=== PATIENT | male | born 1930 | race Caucasian/White ===

== ENCOUNTER 2017-02-19 13:19 | Inpatient (IN) | payer MEDICARE, BC ==
[2017-02-21] MEDS ORDERED: Magnesium Hydroxide 400 MG/5 ML Susp 30 ML Cup PO PRN (10:51)
[2017-02-21] MEDS ORDERED: Acetaminophen 325 MG Tab PO PRN (10:51)
[2017-02-21] MEDS ORDERED: Ondansetron 4 MG Tab.DIS PO PRN (10:51)
[2017-02-21] MEDS ORDERED: guaiFENesin 100 MG/5 ML Soln 5 ML UD Cup PO PRN (10:51)
[2017-02-21] MEDS ORDERED: Acetaminophen/HYDROcodone 325-10 MG Tab PO PRN (10:51)
[2017-02-21] MEDS ORDERED: Polyethylene Glycol 3350 Powder 17 GM Packet PO PRN (10:51)
[2017-02-21] MEDS ORDERED: Betamethasone Dipropionate/Clotrimazole 0.05-1% Crm 15 GM Tube TOP PRN (11:29)
[2017-02-21] MEDS ORDERED: Naproxen 250 MG Tab PO PRN (11:29)
[2017-02-21] MEDS ORDERED: LORazepam 0.5 MG Tab PO PRN (11:29)
[2017-02-21] MEDS ORDERED: Non-Formulary Medication 1 Each (Halobetasol Propionate [Ultravate] 1 APPLIC) TOP PRN (11:29)
--- NOTE | 2017-02-21 15:17 | PCM.HP ---
H&P History of Present Illness - General Date of Service: 02/21/17 Admit Problem/Dx: Admission Diagnosis/Problem Admission Diagnosis/Problem Weakness Source of Information: Patient History Limitations: Reports: No Limitations - History of Present Illness Initial Comments - Free Text/Narative: 86-year-old male with past medical history significant for diabetes mellitus, hyperlipidemia, hypertension, bilateral total hip arthroplasty, who was admitted to [facility] on 02/11/17 with left foot necrotic ulcer. He reported symptoms have been going on for almost 2 months. He had been on multiple courses of antibiotics including clindamycin, doxycycline, and Bactrim, which he could not tolerate. Most recently, he was started on IV Rocephin and another oral antibiotic. He denies any fevers, chills, nausea, vomiting, or diarrhea. His ABIs done on February 11, 2017, showed critically diminished circulation in the left foot. MRI of the foot did not show any evidence of osteomyelitis. Ultrasound of the left leg was negative for DVT. He had angioplasty of left popliteal and left tibial-peroneal trunk and Proximal peroneal on 02/13. 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 His losartan was held. His left foot necrotic ulcer was treated during hospitalization was vancomycin and Zosyn, which have both been stopped and now he is only on daptomycin IV every 48 hours. He is being followed by Infectious Disease. Currently patient denies any symptoms. He was discharged from hospital admits to swing bed for generalized weakness as he may benefit from physical therapy and occupational therapy. His laboratory today shows BUN 27. Creatinine 1.6. Potassium 4.1. GFR 41. His creatinine started rising from normal on 02/18/17 and the highest was 1.8 on 02/19/17. His highest WBC was 15.2 on 02/11/17. And has been normal since 02/15/17. His CRP was 16.5 on 02/11/17. - Related Data Allergies/Adverse Reactions: Allergies Allergy/AdvReac Type Severity Reaction Status Date / Time amoxicillin Allergy Nausea and Verified 02/21/17 12:39 Vomiting cyclobenzaprine Allergy Cannot Verified 02/21/17 12:39 Remember Home Medications: Home Meds Acetaminophen [Tylenol Extra Strength] 1 - 2 tab PO TID PRN 02/18/17 [History] Aspirin [Halfprin] 1 tab PO DAILY 02/18/17 [History] Betamethasone Dipropionate [Diprosone 0.05% Crm] 1 applic TOP BID 02/18/17 [ History] Clotrimazole/Betamethasone Dip [Lotrisone Cream] 1 applic TOP BID PRN 02/18/17 [ History] Doxazosin Mesylate [Cardura] 1 tab PO DAILY 02/18/17 [History] Finasteride [Proscar] 1 tab PO DAILY 02/18/17 [History] Halobetasol Propionate [Ultravate] 1 applic TOP BID PRN 02/18/17 [History] Hydrochlorothiazide 1 tab PO DAILY 02/18/17 [History] Hydrocodone/Acetaminophen [Cecil 5-325] 0.5 tab PO BID 02/18/17 [History] LORazepam [Ativan] 0.5 mg PO BID PRN 02/18/17 [History] Lactobac Cmb #3/Fos/Pantethine [Probiotic & Acidophilus] 1 cap PO DAILY [History] Losartan [Cozaar] 100 mg PO DAILY 02/18/17 [History] Naproxen Sodium 220 mg PO BEDTIME PRN 02/18/17 [History] Silver Sulfadiazine [Silvadene 1% Cream 20 GM] 1 applic TOP DAILY 02/18/17 [ History] Triamcinolone Acetonide [Triamcinolone Acetonide 0.1% Crm] 1 applic TOP DAILY [History] metFORMIN [Glucophage] 1 tab PO BID 02/18/17 [History] oxyCODONE HCl/Acetaminophen [Percocet 5-325 mg Tablet] 0.5 tab PO Q4HR PRN 02/18 [History] Clopidogrel [Plavix] 75 mg PO DAILY 02/21/17 [History] DAPTOmycin [Daptomycin] 590 mg IV Q48H 02/21/17 [History] Lactobacillus Acidophilus/Fos [Acidophilus Probiotic Tablet] 1 each PO DAILY [History] Metoprolol Tartrate 75 mg PO BID 02/21/17 [History] oxyCODONE ER [OxyCONTIN] 20 mg PO Q8H 02/21/17 [History] Past Medical History HEENT History: Reports: Impaired Vision, Other (See Below) Other HEENT History: wears glasses Cardiovascular History: Reports: Hypertension Respiratory History: Reports: None Gastrointestinal History: Reports: Cholelithiasis, GERD Genitourinary History: Reports: BPH Musculoskeletal History: Reports: Arthritis Neurological History: Reports: None Psychiatric History: Reports: None Endocrine/Metabolic History: Reports: Diabetes, Type II Hematologic History: Reports: None Immunologic History: Reports: None Oncologic (Cancer) History: Reports: None Dermatologic History: Reports: Psoriasis - Infectious Disease History Infectious Disease History: Reports: None - Past Surgical History HEENT Surgical History: Reports: None Cardiovascular Surgical History: Reports: None Respiratory Surgical History: Reports: None GI Surgical History: Reports: Cholecystectomy Endocrine Surgical History: Reports: None Neurological Surgical History: Reports: Spinal Fusion Musculoskeletal Surgical History: Reports: Hip Replacement, Knee Replacement Oncologic Surgical History: Reports: None Dermatological Surgical History: Reports: None Social & Family History - Family History Family Medical History: Noncontributory - Tobacco Use Smoking Status *Q: Never Smoker Second Hand Smoke Exposure: No - Caffeine Use Caffeine Use: Reports: Coffee, Soda - Recreational Drug Use Recreational Drug Use: No H&P Review of Systems - Review of Systems: Review Of Systems: See Below General: Reports: No Symptoms HEENT: Reports: No Symptoms Pulmonary: Reports: No Symptoms Cardiovascular: Reports: No Symptoms Gastrointestinal: Reports: No Symptoms Genitourinary: Reports: No Symptoms Musculoskeletal: Reports: No Symptoms (Other than his surgery on the left foot) Skin: Reports: No Symptoms Psychiatric: Reports: No Symptoms Neurological: Reports: No Symptoms Hematologic/Lymphatic: Reports: No Symptoms Immunologic: Reports: No Symptoms Exam - Exam Exam: See Below - Vital Signs Vital Signs: Last Vital Signs Temp 36.0 C 02/21/17 12:49 Pulse 61 02/21/17 12:49 Resp 20 02/21/17 12:49 BP 131/49 L 02/21/17 12:49 Pulse Ox 97 02/21/17 12:49 Weight: 93.621 kg - Exam General: Alert, Oriented, Cooperative. No: Mild Distress, Moderate Distress, Severe Distress, Sedated, Lethargic, Obtunded HEENT: Conjunctiva Clear, EACs Clear, EOMI, Hearing Intact, Mucosa Moist & [place] , Nares Patent, Normal Nasal Septum, Posterior Pharynx Clear, Pupils Equal, Pupils Reactive, TMs Clear Neck: Supple, Trachea Midline Lungs: Clear to Auscultation, Normal Respiratory Effort Cardiovascular: Regular Rate, Regular Rhythm Abdomen: Normal Bowel Sounds, Soft, Pelvis Stable (Male) Exam: Deferred Rectal (Males) Exam: Deferred Back Exam: Normal Inspection, Full Range of Motion Extremities: Normal Pulses, Edema (Left leg edema which is chronic according to patient). No: Clubbing, Cyanosis, Calf Tenderness Skin: Warm, Dry, Intact Neurological: Cranial Nerves Intact, Reflexes Equal Bilateral Neuro Extensive - Mental Status: Alert, Oriented x3, Normal Mood/Affect, Normal Cognition, Memory Intact Psychiatric: Alert, Normal Affect, Normal Mood *Q Meaningful Use (ADM) - VTE *Q VTE Criteria *Q: - Stroke *Q Stroke Criteria *Q: - AMI *Q AMI Criteria *Q: Problem List Initiated/Reviewed/Updated: Yes Orders Last 24hrs: Active Orders 24 hr Category Date Time Status Patient Status [ADT] Routine ADT 02/21/17 10:51 Active Ambulate [RC] ASDIRECTED Care 02/21/17 10:51 Active Antiembolic Devices [RC] PER UNIT ROUTINE Care 02/21/17 11:00 Active Height and Weight [RC] PER UNIT ROUTINE Care 02/21/17 10:55 Active Intake and Output [RC] ASDIRECTED Care 02/21/17 10:51 Active May Shower [RC] ASDIRECTED Care 02/21/17 10:51 Active Oxygen Therapy [RC] PRN Care 02/21/17 10:51 Active Up ad Karyna [RC] ASDIRECTED Care 02/21/17 10:51 Active VTE/DVT Education [RC] PER UNIT ROUTINE Care 02/21/17 10:51 Active Vital Signs [RC] PER UNIT ROUTINE Care 02/21/17 10:51 Active OT Evaluation and Treatment [CONS] Routine Cons 02/21/17 10:51 Active PT Evaluation and Treatment [CONS] Routine Cons 02/21/17 10:51 Active Consistent Carbohydrate Diet [DIET] Diet 02/21/17 Breakfast Active Acetaminophen [Tylenol Extra Strength] Med 02/21/17 11:29 Active 500 mg PO Q4H PRN Acetaminophen [Tylenol] Med 02/21/17 10:51 Active 650 mg PO Q4H PRN Acetaminophen/HYDROcodone [Cecil 325-10 MG] Med 02/21/17 10:51 Active 0.5 tab PO Q4H PRN Acetaminophen/oxyCODONE [Percocet 325-5 MG] Med 02/21/17 11:29 Active 0.5 tab PO Q4HR PRN Aspirin [Halfprin] Med 02/22/17 09:00 Active 81 mg PO DAILY Betamethasone Dipropionate [Diprosone 0.05% Crm] Med 02/21/17 21:00 Active 0 gm TOP BID Betamethasone/Clotrimazole [Lotrisone] Med 02/21/17 11:29 Active 0 gm TOP BID PRN Clopidogrel [Plavix] Med 02/22/17 09:00 Active 75 mg PO DAILY DAPTOmycin [Cubicin] 590 mg Med 02/23/17 09:00 Active Sodium Chloride 0.9% [Normal Saline] 50 ml IV Q48H Doxazosin [Cardura] Med 02/22/17 21:00 Active 8 mg PO BEDTIME Finasteride [Proscar] Med 02/22/17 09:00 Active 5 mg PO DAILY Halobetasol Propionate [Ultravate] Med 02/21/17 11:29 Pending 1 applic TOP BID PRN Hydrochlorothiazide Med 02/22/17 09:00 Active 25 mg PO DAILY LORazepam [Ativan] Med 02/21/17 11:29 Active 0.5 mg PO BID PRN Lactobac Cmb #3/Fos/Pantethine [Probiotic & Acidophilus Med 02/22/17 09:00 Ordered ] 1 cap PO DAILY Lactobacillus Acidophilus/Fos [Acidophilus Probiotic Med 02/22/17 09:00 Ordered Tablet] 1 each PO DAILY Losartan [Cozaar] Med 02/22/17 09:00 Active 100 mg PO DAILY Magnesium Hydroxide [Milk of Magnesia] Med 02/21/17 10:51 Active 30 ml PO Q12H PRN Metoprolol Tartrate [Lopressor] Med 02/21/17 21:00 Active 75 mg PO BID Naproxen Sodium [Naproxen Sodium] Med 02/21/17 11:29 Ordered 220 mg PO BEDTIME PRN Ondansetron [Zofran ODT] Med 02/21/17 10:51 Active 4 mg PO Q6H PRN Polyethylene Glycol 3350 [MiraLAX] Med 02/21/17 10:51 Active 17 gm PO DAILY PRN Silver Sulfadiazine [Silvadene 1% Cream 50 GM] Med 02/22/17 09:00 Active 0 gm TOP DAILY Triamcinolone Acetonide [Triamcinolone Acetonide 0.1% Med 02/22/17 09:00 Ordered Crm] DOSE gm TOP DAILY guaiFENesin [Robitussin] Med 02/21/17 10:51 Active 100 mg PO Q4H PRN metFORMIN [Glucophage] Med 02/21/17 18:00 Active 500 mg PO BIDMEALS oxyCODONE ER [OxyCONTIN] Med 02/21/17 14:00 Active 20 mg PO Q8HR Antiembolic Hose [OM.PC] Routine Oth 02/21/17 10:51 Ordered Sequential Compression Device [OM.PC] Routine Oth 02/21/17 10:51 Ordered Resuscitation Status Routine Resus Stat 02/21/17 10:51 Ordered Medication Orders Acetaminophen (Tylenol) 650 mg PO Q4H PRN PRN Reason: Pain (Mild 1-3)/fever Acetaminophen (Tylenol Extra Strength) 500 mg PO Q4H PRN PRN Reason: Pain Hydrocodone Bitart/Acetaminophen (Cecil 325-10 Mg) 0.5 tab PO Q4H PRN PRN Reason: Pain (moderate 4-6) Aspirin (Halfprin) 81 mg PO DAILY PENDING SALE TO [facility] Betamethasone Dipropionate (Diprosone 0.05% Crm) 0 gm TOP BID DENISE Betamethasone/Clotrimazole (Lotrisone) 0 gm TOP BID PRN PRN Reason: Itching Clopidogrel Bisulfate (Plavix) 75 mg PO DAILY PENDING SALE TO [facility] Doxazosin Mesylate (Cardura) 8 mg PO BEDTIME DENISE Finasteride (Proscar) 5 mg PO DAILY DENISE Guaifenesin (Robitussin) 100 mg PO Q4H PRN PRN Reason: Cough Hydrochlorothiazide (Hydrochlorothiazide) 25 mg PO DAILY DENISE Daptomycin 590 mg/ Sodium (Chloride) 50 mls @ 100 mls/hr IV Q48H DENISE Lorazepam (Ativan) 0.5 mg PO BID PRN PRN Reason: Anxiety Losartan Potassium (Cozaar) 100 mg PO DAILY PENDING SALE TO [facility] Magnesium Hydroxide (Milk Of Magnesia) 30 ml PO Q12H PRN PRN Reason: Constipation Metformin HCl (Glucophage) 500 mg PO BIDMEALS DENISE Metoprolol Tartrate (Lopressor) 75 mg PO BID DENISE Non-Formulary Medication (Halobetasol Propionate [Ultravate]) 1 applic TOP BID PRN PRN Reason: Itching Non-Formulary Medication (Lactobac Cmb #3/Fos/Pantethine [Probiotic & Acidophilus]) 1 cap PO DAILY DENISE Non-Formulary Medication (Lactobacillus Acidophilus/Fos [Acidophilus Probiotic Tablet]) 1 each PO DAILY DENISE Non-Formulary Medication (Naproxen Sodium [Naproxen Sodium]) 220 mg PO BEDTIME PRN PRN Reason: Sleep Ondansetron HCl (Zofran Odt) 4 mg PO Q6H PRN PRN Reason: nausea, able to take PO Oxycodone HCl (Oxycontin) 20 mg PO Q8HR DENISE Oxycodone/Acetaminophen (Percocet 325-5 Mg) 0.5 tab PO Q4HR PRN PRN Reason: Pain Polyethylene Glycol (Miralax) 17 gm PO DAILY PRN PRN Reason: Constipation Silver Sulfadiazine (Silvadene 1% Cream 50 Gm) 0 gm TOP DAILY DENISE Triamcinolone Acetonide (Triamcinolone Acetonide 0.1% Crm) gm TOP DAILY DENISE Assessment/Plan Comment:: Generalized weakness from prolonged hospitalization and multiple comorbidities Admitted to swing bed Physical therapy and occupational therapy to evaluate and treat Left foot necrotic ulcer. Status post angioplasty L done today on 02/13, and left 1&2 toe/MTH amputation by Dr [id number] MRI did not show any osteomyelitis. He was on vancomycin and Zosyn, which have both been stopped and now he is only on daptomycin Infectious Disease is following the patient. Acute kidney injury. likely secondary to post contrast exposure vs vancomycin toxicity creatinine started rising on February. Now is trending down Highest creatinine was 1.8. Today is 1.6 He was taking losartan while the acute injury initiated. 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 His blood pressure was acceptable. Continue holding losartan [ was at 100 mg daily.] Continue metoprolol 75 mg BID Continue hydrochlorothiazide 25 mg daily. Edema of extremities. He has only trace pitting edema. Ultrasound was negative for DVT Continue hydrochlorothiazide 25 mg daily. Anemia of chronic illness. His hemoglobin level was 11.2. G/dl, Transfuse if Hgb <8 g/dl Diabetes type 2. well-controlled and he is on metformin. Diabetic diet Continue metformin Ambulation, KATE naqvi, Alexys for DVT prophylaxis He wants to be full code
[2017-02-21] MEDS: oxyCODONE ER 20 MG TAB.ER PO SCH ×2 (15:31→21:51)
[2017-02-21] MEDS: metFORMIN 500 MG Tab PO SCH (18:56)
[2017-02-21] MEDS: Betamethasone Dipropionate 0.05% Crm 15 GM Tube TOP SCH (21:54)
[2017-02-21] MEDS: Acetaminophen/oxyCODONE 325-5 MG Tab PO PRN (21:59)
[2017-02-21] MEDS: Metoprolol Tartrate 25 MG Tab PO SCH (22:45)
[2017-02-21] MEDS: Sodium Chloride 0.9% 10 ML Syringe FLUSH PRN (22:47)
[2017-02-22] MEDS: oxyCODONE ER 20 MG TAB.ER PO SCH ×3 (05:49→21:43)
[2017-02-22] MEDS ORDERED: Losartan 50 MG Tab PO SCH (09:00)
[2017-02-22] MEDS: Aspirin 81 MG Tab.EC PO SCH (09:14)
[2017-02-22] MEDS: Betamethasone Dipropionate 0.05% Crm 15 GM Tube TOP SCH ×2 (09:14→22:01)
[2017-02-22] MEDS: metFORMIN 500 MG Tab PO SCH ×2 (09:14→17:16)
[2017-02-22] MEDS: Metoprolol Tartrate 25 MG Tab PO SCH ×2 (09:15→21:42)
[2017-02-22] MEDS: Silver Sulfadiazine 1% Crm 50 GM Tube TOP SCH (09:15)
[2017-02-22] MEDS: Hydrochlorothiazide 25 MG Tab PO SCH (09:15)
[2017-02-22] MEDS: Clopidogrel 75 MG Tab PO SCH (09:15)
[2017-02-22] MEDS: Finasteride 5 MG Tab PO SCH (09:15)
[2017-02-22] MEDS: Triamcinolone Acetonide 0.1% Crm 15 GM Tube TOP SCH (09:15)
[2017-02-22] MEDS: Acetaminophen/oxyCODONE 325-5 MG Tab PO PRN ×2 (17:16→21:43)
[2017-02-22] MEDS: Doxazosin 2 MG Tab PO SCH (21:41)
[2017-02-22] MEDS: LACTOBACILLUS ACIDOPHILUS PO SCH (21:42)
[2017-02-22] MEDS: Sodium Chloride 0.9% 10 ML Syringe FLUSH PRN (21:48)
[2017-02-23] MEDS: oxyCODONE ER 20 MG TAB.ER PO SCH ×3 (06:04→21:59)
[2017-02-23] MEDS: Hydrochlorothiazide 25 MG Tab PO SCH (08:57)
[2017-02-23] MEDS: Aspirin 81 MG Tab.EC PO SCH (08:57)
[2017-02-23] MEDS: metFORMIN 500 MG Tab PO SCH ×2 (08:57→17:28)
[2017-02-23] MEDS: Finasteride 5 MG Tab PO SCH (08:57)
[2017-02-23] MEDS: Clopidogrel 75 MG Tab PO SCH (08:57)
[2017-02-23] MEDS: Metoprolol Tartrate 25 MG Tab PO SCH ×2 (08:57→21:59)
[2017-02-23] MEDS: Silver Sulfadiazine 1% Crm 50 GM Tube TOP SCH (08:58)
[2017-02-23] MEDS: Betamethasone Dipropionate 0.05% Crm 15 GM Tube TOP SCH ×2 (08:58→22:01)
[2017-02-23] MEDS: Triamcinolone Acetonide 0.1% Crm 15 GM Tube TOP SCH (08:59)
[2017-02-23] MEDS ORDERED: DAPTOmycin 500 MG Vial IV SCH (09:00)
[2017-02-23] MEDS: LACTOBACILLUS ACIDOPHILUS PO SCH (21:59)
[2017-02-23] MEDS: Doxazosin 2 MG Tab PO SCH (21:59)
[2017-02-23] MEDS: Sodium Chloride 0.9% 10 ML Syringe FLUSH PRN (22:01)
[2017-02-24] MEDS: oxyCODONE ER 20 MG TAB.ER PO SCH ×3 (05:43→21:47)
[2017-02-24] MEDS: Hydrochlorothiazide 25 MG Tab PO SCH (08:22)
[2017-02-24] MEDS: Metoprolol Tartrate 25 MG Tab PO SCH ×2 (08:22→21:15)
[2017-02-24] MEDS: Aspirin 81 MG Tab.EC PO SCH (08:22)
[2017-02-24] MEDS: metFORMIN 500 MG Tab PO SCH ×2 (08:22→17:51)
[2017-02-24] MEDS: Finasteride 5 MG Tab PO SCH (08:24)
[2017-02-24] MEDS: Clopidogrel 75 MG Tab PO SCH (08:24)
[2017-02-24] MEDS: Silver Sulfadiazine 1% Crm 50 GM Tube TOP SCH (08:27)
[2017-02-24] MEDS: Betamethasone Dipropionate 0.05% Crm 15 GM Tube TOP SCH (08:28)
[2017-02-24] MEDS: Triamcinolone Acetonide 0.1% Crm 15 GM Tube TOP SCH (08:28)
[2017-02-24] MEDS: Acetaminophen 500 MG Tab PO PRN (11:17)
--- NOTE | 2017-02-24 13:37 | PCM.SN ---
- Free Text/Narrative Note: Patient informed that he discuss with his family his CODE STATUS and he wants to be DNR/DNI. His thought process were normal and had normal judgment on exam
[2017-02-24] MEDS ORDERED: Triamcinolone Acetonide 0.1% Crm 15 GM Tube TOP PRN (13:44)
[2017-02-24] MEDS ORDERED: Betamethasone Dipropionate 0.05% Crm 15 GM Tube TOP PRN (13:44)
[2017-02-24] MEDS ORDERED: Silver Sulfadiazine 1% Crm 50 GM Tube TOP PRN (13:44)
[2017-02-24] MEDS: Doxazosin 2 MG Tab PO SCH (21:16)
[2017-02-24] MEDS: LACTOBACILLUS ACIDOPHILUS PO SCH (21:47)
[2017-02-24] MEDS: Sodium Chloride 0.9% 10 ML Syringe FLUSH PRN (21:48)
[2017-02-25] MEDS: oxyCODONE ER 20 MG TAB.ER PO SCH ×3 (05:29→21:17)
[2017-02-25] MEDS: Sodium Chloride 0.9% 10 ML Syringe FLUSH PRN ×2 (09:30→22:43)
[2017-02-25] MEDS: Metoprolol Tartrate 25 MG Tab PO SCH ×2 (09:37→21:14)
[2017-02-25] MEDS: Aspirin 81 MG Tab.EC PO SCH (09:38)
[2017-02-25] MEDS: Hydrochlorothiazide 25 MG Tab PO SCH (09:38)
[2017-02-25] MEDS: metFORMIN 500 MG Tab PO SCH ×2 (09:38→17:20)
[2017-02-25] MEDS: Finasteride 5 MG Tab PO SCH (09:38)
[2017-02-25] MEDS: Clopidogrel 75 MG Tab PO SCH (09:38)
[2017-02-25] MEDS: Acetaminophen/oxyCODONE 325-5 MG Tab PO PRN (10:28)
[2017-02-25] MEDS: Acetaminophen 500 MG Tab PO PRN (15:37)
[2017-02-25] MEDS: Doxazosin 2 MG Tab PO SCH (21:15)
[2017-02-25] MEDS: LACTOBACILLUS ACIDOPHILUS PO SCH (21:22)
[2017-02-26] MEDS: oxyCODONE ER 20 MG TAB.ER PO SCH ×2 (06:28→14:54)
[2017-02-26] MEDS: Menthol/Methyl Salicylate 85 GM Tube TOP PRN ×2 (09:00→14:55)
[2017-02-26] MEDS: Finasteride 5 MG Tab PO SCH (09:01)
[2017-02-26] MEDS: Clopidogrel 75 MG Tab PO SCH (09:01)
[2017-02-26] MEDS: Aspirin 81 MG Tab.EC PO SCH (09:02)
[2017-02-26] MEDS: Hydrochlorothiazide 25 MG Tab PO SCH (09:02)
[2017-02-26] MEDS: Metoprolol Tartrate 25 MG Tab PO SCH (09:02)
[2017-02-26] MEDS: metFORMIN 500 MG Tab PO SCH ×2 (09:03→17:29)
[2017-02-26 14:21] VITALS: BP 112/37
--- NOTE | 2017-02-26 17:51 | PCM.DCSUM1 ---
Discharge Summary - Hospital Course Free Text/Narrative:: 86-year-old male with past medical history significant for diabetes mellitus, hyperlipidemia, hypertension, bilateral total hip arthroplasty, who was admitted to [facility] on 02/11/17 with left foot necrotic ulcer. He reported symptoms have been going on for almost 2 months. He had been on multiple courses of antibiotics including clindamycin, doxycycline, and Bactrim, which he could not tolerate. Most recently, he was started on IV Rocephin and another oral antibiotic. He denies any fevers, chills, nausea, vomiting, or diarrhea. His ABIs done on February 11, 2017, showed critically diminished circulation in the left foot. MRI of the foot did not show any evidence of osteomyelitis. Ultrasound of the left leg was negative for DVT. He had angioplasty of left popliteal and left tibial-peroneal trunk and Proximal peroneal on 02/13. 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 His hospitalization was complicated with acute kidney injury for which he was seen by civil designer and thought to be probably combination of contrast and vancomycin toxicity causing either ischemic injury versus acute tubular necrosis. His losartan was held. His left foot necrotic ulcer was treated during hospitalization was vancomycin and Zosyn, which have both been stopped and now he is only on daptomycin IV every 48 hours. He is being followed by Infectious Disease.. His laboratory on swing bed admission day: BUN 27. Creatinine 1.6. Potassium 4.1. GFR 41. His creatinine started rising from normal on 02/18/17 and the highest was 1.8 on 02/19. His highest WBC was 15.2 on 02/11/17. And has been normal since 02/15/17. His CRP was 16.5 on 02/11/17. Yesterday at 4 PM patient had temp of 100.2 Fahrenheit. Today at the point where is Dr. Edouard from nephrology he had temp of 100.8. I suspect patient and examined him and he denies any new symptoms. He denies headache, nausea, vomiting, chest pain, cough, shortness breath, occasional pain, diarrhea, urinary symptoms, any other symptoms. However his nurses change the wound VAC yesterday and there was concern about exposed bone. His left foot is somewhat swelling. Wound VAC is in place. Blood work was done including 2 blood cultures. CRP more than 20. WBC more than 14,000 with neutrophils 79.4%. Sodium 133. Potassium 4.0. Creatinine 1.8. Blood glucose 1:30. UA is unremarkable. Discharge diagnoses: Elevated temperature We'll be transferred to [facility] in [place] for further work up Generalized weakness from prolonged hospitalization and multiple comorbidities He was having physical therapy and occupational therapy treatment Left foot necrotic ulcer. Status post angioplasty L done today on 02/13, and left 1&2 toe/MTH amputation by Dr Armas02/14 MRI did not show any osteomyelitis. He was on vancomycin and Zosyn, which have both been stopped and now he is only on daptomycin Infectious Disease is following the patient. Acute kidney injury. likely secondary to post contrast exposure vs vancomycin toxicity creatinine started rising on February. Highest creatinine was 1.8 during last hospitalization. Today is 1.8 He was taking losartan prior to previous admission to [facility] but was held and still on hold Encourage oral intake Process Improvement Specialist was following through telemedicine Hypertension. His blood pressure was acceptable. Continue holding losartan [ was at 100 mg daily.] Continue metoprolol 75 mg BID Continue hydrochlorothiazide 25 mg daily. Edema of extremities. He has only trace pitting edema. Ultrasound was negative for DVT Continue hydrochlorothiazide 25 mg daily. Anemia of chronic illness. His hemoglobin level dropped to 10.4.. G/dl, Transfuse if Hgb <8 g/dl Diabetes type 2. well-controlled and he is on metformin. Diabetic diet Continue metformin Ambulation, Alexys Thompson for DVT prophylaxis He wanted to be DNR/do not - Discharge Data Discharge Date: 02/26/17 Discharge Disposition: DC/Tfer to Acute Hospital 02 Condition: Fair - Patient Summary/Data Consults: Consultations 02/21/17 10:51 OT Evaluation and Treatment [CONS] Routine PT Evaluation and Treatment [CONS] Routine - Discharge Plan Home Medications: Home Meds Acetaminophen [Tylenol Extra Strength] 1 - 2 tab PO TID PRN 02/18/17 [History] Aspirin [Halfprin] 1 tab PO DAILY 02/18/17 [History] Betamethasone Dipropionate [Diprosone 0.05% Crm] 1 applic TOP BID 02/18/17 [ History] Clotrimazole/Betamethasone Dip [Lotrisone Cream] 1 applic TOP BID PRN 02/18/17 [ History] Doxazosin Mesylate [Cardura] 1 tab PO DAILY 02/18/17 [History] Finasteride [Proscar] 1 tab PO DAILY 02/18/17 [History] Halobetasol Propionate [Ultravate] 1 applic TOP BID PRN 02/18/17 [History] Hydrochlorothiazide 1 tab PO DAILY 02/18/17 [History] Hydrocodone/Acetaminophen [[place] 5-325] 0.5 tab PO BID 02/18/17 [History] LORazepam [Ativan] 0.5 mg PO BID PRN 02/18/17 [History] Lactobac Cmb #3/Fos/Pantethine [Probiotic & Acidophilus] 1 cap PO DAILY [History] Losartan [Cozaar] 100 mg PO DAILY 02/18/17 [History] Naproxen Sodium 220 mg PO BEDTIME PRN 02/18/17 [History] Silver Sulfadiazine [Silvadene 1% Cream 20 GM] 1 applic TOP DAILY 02/18/17 [ History] Triamcinolone Acetonide [Triamcinolone Acetonide 0.1% Crm] 1 applic TOP DAILY [History] metFORMIN [Glucophage] 1 tab PO BID 02/18/17 [History] oxyCODONE HCl/Acetaminophen [Percocet 5-325 mg Tablet] 0.5 tab PO Q4HR PRN 02/18 [History] Clopidogrel [Plavix] 75 mg PO DAILY 02/21/17 [History] DAPTOmycin [Daptomycin] 590 mg IV Q48H 02/21/17 [History] Lactobacillus Acidophilus/Fos [Acidophilus Probiotic Tablet] 1 each PO DAILY [History] Metoprolol Tartrate 75 mg PO BID 02/21/17 [History] oxyCODONE ER [OxyCONTIN] 20 mg PO Q8H 02/21/17 [History] - Discharge Summary/Plan Comment DC Time >30 min.: Yes (35 minutes were spent discharging this patient) - General Info Date of Service: 02/26/17 Admission Dx/Problem (Free Text: Admission Diagnosis/Problem Admission Diagnosis/Problem Weakness - Review of Systems General: Reports: No Symptoms HEENT: Reports: no symptoms Pulmonary: Reports: no symptoms Cardiovascular: Reports: No Symptoms Gastrointestinal: Reports: No symptoms Genitourinary: Reports: no symptoms Musculoskeletal: Reports: no symptoms Skin: Reports: no symptoms Neurological: Reports: No Symptoms Psychiatric: Reports: no symptoms (Other than his left foot issue) - Patient Data Vitals - Most Recent: Last Vital Signs Temp 37.7 C 02/26/17 14:21 Pulse 72 02/26/17 14:21 Resp 20 02/26/17 14:21 BP 112/37 L 02/26/17 14:21 Pulse Ox 93 L 02/26/17 14:21 Weight - Most Recent: 93.621 kg I&O - Last 24 hours: Intake & Output 02/26/17 02/26/17 02/26/17 06:59 14:59 22:59 Intake Total 300 470 Balance 300 470 Lab Results - Last 24 hrs: Laboratory Results - last 24 hr 02/26/17 02/26/17 02/26/17 Range/Units 07:49 14:20 14:20 WBC 14.6 H (5.0-10.0) 10^3/uL RBC 3.39 L (4.6-6.2) 10^6/uL Hgb 10.4 L (14.0-18.0) g/dL Hct 31.2 L (40.0-54.0) % MCV 92.0 (80-100) fL MCH 30.7 (27.0-34.0) pg MCHC 33.3 (33.0-35.0) g/dL Plt Count 402 (150-450) 10^3/uL Neut % (Auto) 79.4 H (42.2-75.2) % Lymph % (Auto) 8.3 L (20.5-50.1) % [place] % (Auto) 12.0 H (2-8) % Eos % (Auto) 0.0 L (1.0-3.0) % Baso % (Auto) 0.3 (0.0-1.0) % Sodium 133 L (135-145) mmol/L Potassium 4.0 (3.6-5.0) mmol/L Chloride 96 L (101-111) mmol/L Carbon Dioxide 23.0 (21.0-31.0) mmol/L Anion Gap 18.0 BUN 31 H (7-18) mg/dL Creatinine 1.8 H (0.6-1.3) mg/dL Est Cr Clr Drug Dosing 26.10 mL/min Estimated GFR (MDRD) 36 Glucose 130 H (74-105) mg/dL POC Glucose 102 (83-110) mg/dl Calcium 9.0 (8.4-10.2) mg/dl C-Reactive Protein (0.0-1.3) mg/dL Urine Color (YELLOW) Urine Appearance (CLEAR) Urine pH (5.0-9.0) Ur Specific [place] (1.005-1.030) Urine Protein (NEGATIVE) Urine Glucose (UA) (NEGATIVE) Urine Ketones (NEGATIVE) Urine Occult Blood (NEGATIVE) Urine Nitrite (NEGATIVE) Urine Bilirubin (NEGATIVE) Urine Urobilinogen (0.2-1.0) mg/dL Ur Leukocyte Esterase (NEGATIVE) Urine RBC /HPF Urine WBC (0-5/HPF) /HPF Amorphous Sediment (0/HPF) /HPF Urine Bacteria (0-FEW/HPF) /HPF 02/26/17 02/26/17 Range/Units 14:20 16:45 WBC (5.0-10.0) 10^3/uL RBC (4.6-6.2) 10^6/uL Hgb (14.0-18.0) g/dL Hct (40.0-54.0) % MCV (80-100) fL MCH (27.0-34.0) pg MCHC (33.0-35.0) g/dL Plt Count (150-450) 10^3/uL Neut % (Auto) (42.2-75.2) % Lymph % (Auto) (20.5-50.1) % [place] % (Auto) (2-8) % Eos % (Auto) (1.0-3.0) % Baso % (Auto) (0.0-1.0) % Sodium (135-145) mmol/L Potassium (3.6-5.0) mmol/L Chloride (101-111) mmol/L Carbon Dioxide (21.0-31.0) mmol/L Anion Gap BUN (7-18) mg/dL Creatinine (0.6-1.3) mg/dL Est Cr Clr Drug Dosing mL/min Estimated GFR (MDRD) Glucose (74-105) mg/dL POC Glucose (83-110) mg/dl Calcium (8.4-10.2) mg/dl C-Reactive Protein > 20.0 H (0.0-1.3) mg/dL Urine Color Yellow (YELLOW) Urine Appearance Clear (CLEAR) Urine pH 5.5 (5.0-9.0) Ur Specific [place] 1.015 (1.005-1.030) Urine Protein 30 H (NEGATIVE) Urine Glucose (UA) Negative (NEGATIVE) Urine Ketones Negative (NEGATIVE) Urine Occult Blood Small H (NEGATIVE) Urine Nitrite Negative (NEGATIVE) Urine Bilirubin Negative (NEGATIVE) Urine Urobilinogen 0.2 (0.2-1.0) mg/dL Ur Leukocyte Esterase Negative (NEGATIVE) Urine RBC 0-5 /HPF Urine WBC 0-5 (0-5/HPF) /HPF Amorphous Sediment Rare (0/HPF) /HPF Urine Bacteria Rare (0-FEW/HPF) /HPF [facility] Results - Last 24 hrs: Microbiology 02/26/17 14:25 Anaerobic Blood Culture - Final Blood - Venous - Lab Draw Med Orders - Current: Current Medications Acetaminophen (Tylenol) 650 mg PO Q4H PRN PRN Reason: Pain (Mild 1-3)/fever Last Admin: 02/22/17 17:58 Dose: 650 mg Acetaminophen (Tylenol Extra Strength) 500 mg PO Q4H PRN PRN Reason: Pain Last Admin: 02/25/17 15:37 Dose: 500 mg Aspirin (Halfprin) 81 mg PO DAILY [facility] Last Admin: 02/26/17 09:02 Dose: 81 mg Betamethasone Dipropionate (Diprosone 0.05% Crm) 0.1 gm TOP BID PRN PRN Reason: Psoriasis flare up Betamethasone/Clotrimazole (Lotrisone) 0 gm TOP BID PRN PRN Reason: Itching Clopidogrel Bisulfate (Plavix) 75 mg PO DAILY [facility] Last Admin: 02/26/17 09:01 Dose: 75 mg Doxazosin Mesylate (Cardura) 8 mg PO BEDTIME [facility] Last Admin: 02/25/17 21:15 Dose: 8 mg Finasteride (Proscar) 5 mg PO DAILY [facility] Last Admin: 02/26/17 09:01 Dose: 5 mg Guaifenesin (Robitussin) 100 mg PO Q4H PRN PRN Reason: Cough Hydrochlorothiazide (Hydrochlorothiazide) 25 mg PO DAILY [facility] Last Admin: 02/26/17 09:02 Dose: 25 mg Daptomycin 590 mg/ Sodium (Chloride) 50 mls @ 100 mls/hr IV Q48H [facility] Last Admin: 02/25/17 09:31 Dose: 100 mls/hr Lorazepam (Ativan) 0.5 mg PO BID PRN PRN Reason: Anxiety Magnesium Hydroxide (Milk Of Magnesia) 30 ml PO Q12H PRN PRN Reason: Constipation Metformin HCl (Glucophage) 500 mg PO BIDMEALS [facility] Last Admin: 02/26/17 17:29 Dose: 500 mg Methyl Salicylate (Icy Hot Cream) 0.1 gm TOP TID PRN PRN Reason: muscle pain Last Admin: 02/26/17 14:55 Dose: 1 applic Metoprolol Tartrate (Lopressor) 75 mg PO BID [facility] Last Admin: 02/26/17 09:02 Dose: 75 mg Naproxen (Naprosyn) 250 mg PO BEDTIME PRN PRN Reason: Sleep Ondansetron HCl (Zofran Odt) 4 mg PO Q6H PRN PRN Reason: nausea, able to take PO Oxycodone HCl (Oxycontin) 20 mg PO Q8HR [facility] Last Admin: 02/26/17 14:54 Dose: 20 mg Oxycodone/Acetaminophen (Percocet 325-5 Mg) 0.5 tab PO Q4HR PRN PRN Reason: Pain Last Admin: 02/25/17 10:28 Dose: 0.5 tab Lactobacillus Acidophilus(Florajen 3)Pt's Own Med * 1 each PO DAILY@2200 [facility] Last Admin: 02/25/17 21:22 Dose: 1 each Polyethylene Glycol (Miralax) 17 gm PO DAILY PRN PRN Reason: Constipation Silver Sulfadiazine (Silvadene 1% Cream 50 Gm) 0.1 gm TOP DAILY PRN PRN Reason: Psoriasis flareup Sodium Chloride (Saline Flush) 10 ml FLUSH ASDIRECTED PRN PRN Reason: Keep Vein Open Last Admin: 02/25/17 22:43 Dose: 10 ml Triamcinolone Acetonide (Triamcinolone Acetonide 0.1% Crm) 0.1 gm TOP DAILY PRN PRN Reason: Psoriasis flare up Discontinued Medications Hydrocodone Bitart/Acetaminophen ([place] 325-10 Mg) 0.5 tab PO Q4H PRN PRN Reason: Pain (moderate 4-6) Betamethasone Dipropionate (Diprosone 0.05% Crm) 0 gm TOP BID [facility] Last Admin: 02/24/17 08:28 Dose: Not Given Losartan Potassium (Cozaar) 100 mg PO DAILY [facility] Non-Formulary Medication (Halobetasol Propionate [Ultravate]) 1 applic TOP BID PRN PRN Reason: Itching Non-Formulary Medication (Lactobac Cmb #3/Fos/Pantethine [Probiotic & Acidophilus]) 1 cap PO DAILY [facility] Last Admin: 02/22/17 13:40 Dose: Not Given Silver Sulfadiazine (Silvadene 1% Cream 50 Gm) 0 gm TOP DAILY [facility] Last Admin: 02/24/17 08:27 Dose: Not Given Triamcinolone Acetonide (Triamcinolone Acetonide 0.1% Crm) 0 gm TOP DAILY [facility] Last Admin: 02/24/17 08:28 Dose: Not Given - Exam General: Reports: alert, oriented, cooperative, no acute distress. Denies: mild distress, moderate distress, severe distress, sedated, lethargic, obtunded HEENT: Reports: Pupils equal, Pupils reactive, EOMI, Mucous membr. moist/pink Neck: Reports: supple, trachea midline, no JVD Lungs: Reports: Clear to auscultation, Normal respiratory effort Cardiovascular: Reports: Regular Rate, Regular Rhythm GI/Abdominal Exam: Normal Bowel Sounds, Soft, Non-Tender, No Organomegaly, No Distention, No Abnormal Bruit, No Mass (Male) Exam: Deferred Rectal (Males) Exam: Deferred Back Exam: Reports: Normal Inspection, Full Range of Motion Extremities: Normal Capillary Refill, Other (Left foot has a wound VAC in place) Skin: Reports: warm, dry Neurological: Reports: no new focal deficit, normal speech, normal tone Psy/Mental Status: Reports: alert, normal affect, normal mood *Q Meaningful Use (DIS) - VTE *Q VTE Criteria *Q: - Stroke *Q Stroke Criteria *Q: - AMI *Q AMI Criteria *Q:
== END 2017-02-26 17:45 | DRG 948 ==
LOC: DL.MS 02-21 12:17
PROVIDERS: ADMIT Family Medicine; ATTEND Family Medicine
DX: R53.1 Weakness (principal); N17.9 Acute kidney failure, unspecified; L97.529 Non-pressure chronic ulcer of other part of left foot with unspecified severity; R50.9 Fever, unspecified; I10 Essential (primary) hypertension; D63.8 Anemia in other chronic diseases classified elsewhere; R60.9 Edema, unspecified; Z66 Do not resuscitate; E11.9 Type 2 diabetes mellitus without complications; Z79.84 Long term (current) use of oral hypoglycemic drugs; Z98.62 Peripheral vascular angioplasty status; K21.9 Gastro-esophageal reflux disease without esophagitis; N40.0 Benign prostatic hyperplasia without lower urinary tract symptoms; M19.90 Unspecified osteoarthritis, unspecified site; L40.9 Psoriasis, unspecified; Z96.643 Presence of artificial hip joint, bilateral; Z96.659 Presence of unspecified artificial knee joint; E78.5 Hyperlipidemia, unspecified; Z88.1 Allergy status to other antibiotic agents; Z88.8 Allergy status to other drugs, medicaments and biological substances; Z79.82 Long term (current) use of aspirin; Z79.899 Other long term (current) drug therapy
CPT/HCPCS: 36415; 80048; 81001; 82962; 85025; 86140; 87040; 97110-GO; 97110-GP; 97161-GP; 97165-GO; 97530-GO; 97535-GO; A9270-GY; J0878; J7050

== ENCOUNTER 2017-03-05 15:23 | Inpatient (IN) | payer MEDICARE, BC ==
[2017-03-05] MEDS ORDERED: Betamethasone Dipropionate/Clotrimazole 0.05-1% Crm 15 GM Tube TOP PRN (16:45)
[2017-03-05] MEDS ORDERED: LORazepam 0.5 MG Tab PO PRN (16:45)
[2017-03-05] MEDS ORDERED: Naproxen 250 MG Tab PO PRN (16:45)
[2017-03-05] MEDS ORDERED: Menthol/Methyl Salicylate 85 GM Tube TOP PRN (16:45)
[2017-03-05] MEDS ORDERED: HYDROCORTISONE VALERATE TOP PRN (16:45)
--- NOTE | 2017-03-05 17:01 | PCM.HP ---
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 Jose Crenshaw is an 86-year-old man with medical history of hypertension diabetes mellitus chronic kidney disease dyslipidemia and peripheral atrophy disease. The patient developed necrotic left foot and underwent amputation of toes of the left foot but subsequently the wound refused to heal has underwent left below knee amputation. Today the patient also has no new complaints. He is weak since the time of surgery but that has gradually improved. Denies nausea or vomiting. He developed urinary retention in the postoperative period. This was felt to be due to narcotic analgesics. Urinalysis also suggested possible urinary tract infection. The patient was started on ciprofloxacin Left Leg Pain Score (Numeric/FACES): 5 - Related Data Allergies/Adverse Reactions: Allergies Allergy/AdvReac Type Severity Reaction Status Date / Time amoxicillin Allergy Nausea and Verified 03/05/17 16:31 Vomiting cyclobenzaprine Allergy Cannot Verified 03/05/17 16:31 Remember Home Medications: Home Meds Acetaminophen [Tylenol Extra Strength] 1 - 2 tab PO TID PRN 02/18/17 [History] Aspirin [Halfprin] 1 tab PO DAILY 02/18/17 [History] Betamethasone Dipropionate [Diprosone 0.05% Crm] 1 applic TOP BID 02/18/17 [ History] Clotrimazole/Betamethasone Dip [Lotrisone Cream] 1 applic TOP BID PRN 02/18/17 [ History] Doxazosin Mesylate [Cardura] 1 tab PO DAILY 02/18/17 [History] Finasteride [Proscar] 1 tab PO DAILY 02/18/17 [History] Halobetasol Propionate [Ultravate] 1 applic TOP DAILY PRN 02/18/17 [History] Hydrochlorothiazide 1 tab PO DAILY 02/18/17 [History] Hydrocodone/Acetaminophen [Plano 5-325] 0.5 tab PO BID 02/18/17 [History] LORazepam [Ativan] 0.5 mg PO BID PRN 02/18/17 [History] Losartan [Cozaar] 100 mg PO DAILY 02/18/17 [History] Naproxen Sodium 220 mg PO BEDTIME PRN 02/18/17 [History] Silver Sulfadiazine [Silvadene 1% Cream 20 GM] 1 applic TOP DAILY 02/18/17 [ History] metFORMIN [Glucophage] 1 tab PO BID 02/18/17 [History] oxyCODONE HCl/Acetaminophen [Percocet 5-325 mg Tablet] 0.5 tab PO Q4HR PRN 02/18 [History] Clopidogrel [Plavix] 75 mg PO DAILY 02/21/17 [History] Lactobacillus Acidophilus/Fos [Acidophilus Probiotic Tablet] 1 each PO DAILY [History] Metoprolol Tartrate 50 mg PO BID 02/21/17 [History] oxyCODONE ER [OxyCONTIN] 20 mg PO Q8H 02/21/17 [History] Hydrocortisone Valerate [Hydrocortisone Valerate 0.2% Crm] 1 applic TOP BID PRN 03/04/17 [History] Ciprofloxacin [Ciprofloxacin HCl] 500 mg PO BID 03/05/17 [History] Magnesium Hydroxide [Milk of Magnesia] 30 ml PO BID PRN 03/05/17 [History] Methyl Salicylate/Menth/Camph [Pain Relieving Rub Cream] 57 gm TP TID PRN [History] Polyethylene Glycol 3350 [MiraLAX] 17 gm PO DAILY PRN 03/05/17 [History] Tamsulosin HCl [Flomax] 0.4 mg PO BEDTIME 03/05/17 [History] Past Medical History HEENT History: Reports: Impaired Vision, Other (See Below) Other HEENT History: wears glasses Cardiovascular History: Reports: Hypertension Respiratory History: Reports: None Gastrointestinal History: Reports: Cholelithiasis, GERD Genitourinary History: Reports: BPH Musculoskeletal History: Reports: Arthritis Neurological History: Reports: None Psychiatric History: Reports: None Endocrine/Metabolic History: Reports: Diabetes, Type II Hematologic History: Reports: None Immunologic History: Reports: None Oncologic (Cancer) History: Reports: None Dermatologic History: Reports: Psoriasis - Infectious Disease History Infectious Disease History: Reports: None - Past Surgical History HEENT Surgical History: Reports: None Cardiovascular Surgical History: Reports: None Respiratory Surgical History: Reports: None GI Surgical History: Reports: Cholecystectomy Endocrine Surgical History: Reports: None Neurological Surgical History: Reports: Spinal Fusion Musculoskeletal Surgical History: Reports: Hip Replacement, Knee Replacement Oncologic Surgical History: Reports: None Dermatological Surgical History: Reports: None Social & Family History - Family History Family Medical History: Noncontributory - Tobacco Use Smoking Status *Q: Never Smoker Second Hand Smoke Exposure: No - Caffeine Use Caffeine Use: Reports: Coffee, Soda - Recreational Drug Use Recreational Drug Use: No H&P Review of Systems - Review of Systems: Review Of Systems: See Below General: Reports: Weakness HEENT: Reports: No Symptoms Pulmonary: Reports: No Symptoms Cardiovascular: Reports: No Symptoms Gastrointestinal: Reports: No Symptoms Musculoskeletal: Reports: No Symptoms Skin: Reports: No Symptoms Exam - Exam Exam: See Below - Vital Signs Vital Signs: Last Vital Signs Temp 36.6 C 03/05/17 15:38 Pulse 72 03/05/17 15:38 Resp 20 03/05/17 15:38 BP 132/49 L 03/05/17 15:38 Pulse Ox 98 03/05/17 16:38 Weight: 82.645 kg - Exam General: Alert, Oriented Lungs: Clear to Auscultation Cardiovascular: Regular Rate, Regular Rhythm GI/Abdominal Exam: Normal Bowel Sounds, Soft Back Exam: Normal Inspection, Full Range of Motion Extremities: Normal Capillary Refill, Other Skin: Other *Q Meaningful Use (ADM) - VTE *Q VTE Criteria *Q: - VTE Risk Assess *Q Each Risk Factor Represents 1 Point: None Total Score 1 Point Risk Factors: 0 Each Risk Factor Represents 3 Points: None Total Score 3 Point Risk Factors: 0 - Stroke *Q Stroke Criteria *Q: - AMI *Q AMI Criteria *Q: Problem List Initiated/Reviewed/Updated: Yes Orders Last 24hrs: Active Orders 24 hr Category Date Time Status Patient Status [ADT] Routine ADT 03/05/17 16:38 Ordered Blood Glucose Check, Bedside [RC] QIDACANDBED Care 03/05/17 16:38 Ordered Diabetes Education [RC] Click To Edit Care 03/05/17 16:44 Ordered Dietary Supplements [RC] QIDACANDBED Care 03/05/17 16:38 Ordered Height and Weight [RC] WEEKLY Care 03/05/17 16:41 Ordered Intake and Output [RC] QSHIFT Care 03/05/17 16:41 Ordered Oxygen Therapy [RC] PRN Care 03/05/17 16:38 Ordered Up ad Karyna [RC] ASDIRECTED Care 03/05/17 16:38 Ordered VTE/DVT Education [RC] PER UNIT ROUTINE Care 03/05/17 16:38 Ordered Vital Signs [RC] PER UNIT ROUTINE Care 03/05/17 16:38 Ordered OT Evaluation and Treatment [CONS] Routine Cons 03/05/17 16:38 Ordered PT Evaluation and Treatment [CONS] Routine Cons 03/05/17 16:38 Ordered Consistent Carbohydrate Diet [DIET] Diet 03/05/17 Dinner Ordered Acetaminophen [Tylenol] Med 03/05/17 16:38 Ordered 650 mg PO Q4H PRN Acetaminophen/oxyCODONE [Percocet 325-5 MG] Med 03/05/17 16:45 Ordered 0.5 tab PO Q4HR PRN Aspirin [Halfprin] Med 03/06/17 09:00 Ordered 1 tab PO DAILY Betamethasone Dipropionate [Diprosone 0.05% Crm] Med 03/05/17 21:00 Ordered 1 applic TOP BID Betamethasone/Clotrimazole [Lotrisone] Med 03/05/17 16:45 Ordered 1 applic TOP BID PRN Ciprofloxacin [Ciprofloxacin HCl] Med 03/05/17 21:00 Ordered 500 mg PO BID Clopidogrel [Plavix] Med 03/06/17 09:00 Ordered 75 mg PO DAILY Doxazosin Mesylate [Cardura] Med 03/06/17 09:00 Ordered 1 tab PO DAILY Finasteride [Proscar] Med 03/06/17 09:00 Ordered 1 tab PO DAILY Heparin Sodium Med 03/05/17 22:00 Ordered 5,000 units SUBCUT Q8HR Hydrochlorothiazide Med 03/06/17 09:00 Ordered 1 tab PO DAILY Hydrocortisone Valerate [Hydrocortisone Valerate 0.2% Med 03/05/17 16:45 Stop Req Crm] 1 applic TOP BID PRN LORazepam [Ativan] Med 03/05/17 16:45 Ordered 0.5 mg PO BID PRN Lactobacillus Acidophilus/Fos [Acidophilus Probiotic Med 03/06/17 09:00 Ordered Tablet] 1 each PO DAILY Losartan [Cozaar] Med 03/06/17 09:00 Ordered 100 mg PO DAILY Magnesium Hydroxide [Milk of Magnesia] Med 03/05/17 16:45 Ordered 30 ml PO BID PRN Methyl Salicylate/Menth/Camph [Pain Relieving Rub Cream Med 03/05/17 16:45 Ordered ] 57 gm TP TID PRN Metoprolol Tartrate [Metoprolol Tartrate] Med 03/05/17 21:00 Ordered 50 mg PO BID Naproxen Sodium [Naproxen Sodium] Med 03/05/17 16:45 Ordered 220 mg PO BEDTIME PRN Ondansetron [Zofran ODT] Med 03/05/17 16:38 Ordered 4 mg PO Q6H PRN Polyethylene Glycol 3350 [MiraLAX] Med 03/05/17 16:45 Ordered 17 gm PO DAILY PRN Silver Sulfadiazine [Silvadene 1% Cream 400 GM] Med 03/06/17 09:00 Ordered 1 applic TOP DAILY Tamsulosin [Flomax] Med 03/05/17 21:00 Ordered 0.4 mg PO BEDTIME metFORMIN [Glucophage] Med 03/05/17 21:00 Ordered 1 tab PO BID oxyCODONE ER [OxyCONTIN] Med 03/05/17 16:45 Ordered 20 mg PO Q8H Glucose Management Sub Q Reflex [OM.PC] Click To Edit Oth 03/05/17 16:38 Ordered Resuscitation Status Routine Resus Stat 03/05/17 16:38 Ordered Medication Orders Acetaminophen (Tylenol) 650 mg PO Q4H PRN PRN Reason: Pain (Mild 1-3)/fever Aspirin (Halfprin) mg PO DAILY [facility] Betamethasone Dipropionate (Diprosone 0.05% Crm) gm TOP BID [facility] Betamethasone/Clotrimazole (Lotrisone) gm TOP BID PRN PRN Reason: Itching Ciprofloxacin (Ciprofloxacin Hcl) 500 mg PO BID [facility] Clopidogrel Bisulfate (Plavix) 75 mg PO DAILY [facility] Finasteride (Proscar) mg PO DAILY [facility] Heparin Sodium (Porcine) (Heparin Sodium) 5,000 units SUBCUT Q8HR [facility] Hydrochlorothiazide (Hydrochlorothiazide) mg PO DAILY [facility] Lorazepam (Ativan) 0.5 mg PO BID PRN PRN Reason: Anxiety Magnesium Hydroxide (Milk Of Magnesia) 30 ml PO BID PRN PRN Reason: Constipation Metformin HCl (Glucophage) mg PO BID [facility] Non-Formulary Medication (Doxazosin Mesylate [Cardura]) 1 tab PO DAILY [facility] Non-Formulary Medication (Hydrocortisone Valerate [Hydrocortisone Valerate 0.2% Crm]) 1 applic TOP BID PRN PRN Reason: Itching Non-Formulary Medication (Lactobacillus Acidophilus/Fos [Acidophilus Probiotic Tablet]) 1 each PO DAILY [facility] Non-Formulary Medication (Losartan [Cozaar]) 100 mg PO DAILY [facility] Non-Formulary Medication (Methyl Salicylate/Menth/Camph [Pain Relieving Rub Cream]) 57 gm TP TID PRN PRN Reason: Pain Non-Formulary Medication (Metoprolol Tartrate [Metoprolol Tartrate]) 50 mg PO BID [facility] Non-Formulary Medication (Naproxen Sodium [Naproxen Sodium]) 220 mg PO BEDTIME PRN PRN Reason: Sleep Ondansetron HCl (Zofran Odt) 4 mg PO Q6H PRN PRN Reason: nausea, able to take PO Oxycodone HCl (Oxycontin) 20 mg PO Q8H [facility] Oxycodone/Acetaminophen (Percocet 325-5 Mg) 0.5 tab PO Q4HR PRN PRN Reason: Pain Polyethylene Glycol (Miralax) 17 gm PO DAILY PRN PRN Reason: Constipation Silver Sulfadiazine (Silvadene 1% Cream 400 Gm) gm TOP DAILY [facility] Tamsulosin HCl (Flomax) 0.4 mg PO BEDTIME [facility] Assessment/Plan Comment:: Assessment and plan: #. Ischemic left foot. The patient initially had amputation of the left toes but due to poor wound healing he underwent left below knee amputation #. Diabetes mellitus2 Anatoly Whitman hypoglycemic agent metformin #. Hypertension Blood pressure is within acceptable limits #. Chronic kidney disease stage III Baseline creatinine has been about 1.4-1.5 #. Peripheral artery disease Procedures on aspirin Plavix and statin #. Possible urinary tract infection Urinalysis was suggestive #. Urinary retention. Was thought to be due to opiates Patient has an indwelling Jaffe catheter Plan Monitor vital signs every shift Check blood sugar before meals and at bedtime Start patient back on metformin Comments insulin sliding scale Wound dressings daily Continue Plavix aspirin Continue metoprolol Serial basic metabolic panel
[2017-03-05] MEDS: Acetaminophen/oxyCODONE 325-5 MG Tab PO PRN (17:27)
[2017-03-05] MEDS: metFORMIN 500 MG Tab PO SCH (17:28)
[2017-03-05] MEDS: Ciprofloxacin 500 MG Tab PO SCH (22:18)
[2017-03-05] MEDS: Metoprolol Tartrate 50 MG Tab PO SCH (22:18)
[2017-03-05] MEDS: Heparin Sodium 5,000 Units/ML Vial SUBCUT SCH (22:19)
[2017-03-05] MEDS: oxyCODONE ER 20 MG TAB.ER PO SCH (22:19)
[2017-03-05] MEDS: Tamsulosin 0.4 MG Cap.ER PO SCH (22:19)
[2017-03-05] MEDS: Insulin Aspart 100 Units/ML 3 ML Pen SUBCUT SCH (22:20)
[2017-03-05] MEDS: Betamethasone Dipropionate 0.05% Crm 15 GM Tube TOP SCH (22:32)
[2017-03-06] MEDS: Acetaminophen/oxyCODONE 325-5 MG Tab PO PRN ×3 (03:39→15:33)
[2017-03-06] MEDS: oxyCODONE ER 20 MG TAB.ER PO SCH ×3 (06:18→21:45)
[2017-03-06] MEDS: Heparin Sodium 5,000 Units/ML Vial SUBCUT SCH ×3 (06:18→21:44)
[2017-03-06] MEDS: metFORMIN 500 MG Tab PO SCH ×2 (08:31→17:33)
[2017-03-06] MEDS: Doxazosin 2 MG Tab PO SCH (08:33)
[2017-03-06] MEDS: Ciprofloxacin 500 MG Tab PO SCH ×2 (08:34→21:43)
[2017-03-06] MEDS: Aspirin 81 MG Tab.EC PO SCH (08:35)
[2017-03-06] MEDS: Losartan 50 MG Tab PO SCH (08:35)
[2017-03-06] MEDS: Hydrochlorothiazide 25 MG Tab PO SCH (08:36)
[2017-03-06] MEDS: Clopidogrel 75 MG Tab PO SCH (08:36)
[2017-03-06] MEDS: Finasteride 5 MG Tab PO SCH (08:37)
[2017-03-06] MEDS: Insulin Aspart 100 Units/ML 3 ML Pen SUBCUT SCH ×4 (08:49→21:30)
[2017-03-06] MEDS: Metoprolol Tartrate 50 MG Tab PO SCH ×2 (09:38→21:43)
[2017-03-06] MEDS: Silver Sulfadiazine 1% Crm 50 GM Tube TOP SCH (10:04)
[2017-03-06] MEDS: Betamethasone Dipropionate 0.05% Crm 15 GM Tube TOP SCH ×2 (10:05→21:44)
[2017-03-06] MEDS: Calcium Carbonate 500 MG Tab.Chew PO PRN (14:07)
[2017-03-06] MEDS: Tamsulosin 0.4 MG Cap.ER PO SCH (21:43)
[2017-03-07] MEDS: Acetaminophen/oxyCODONE 325-5 MG Tab PO PRN (04:30)
[2017-03-07] MEDS: oxyCODONE ER 20 MG TAB.ER PO SCH ×3 (06:07→21:52)
[2017-03-07] MEDS: Heparin Sodium 5,000 Units/ML Vial SUBCUT SCH ×3 (06:08→21:50)
[2017-03-07] MEDS: metFORMIN 500 MG Tab PO SCH ×2 (08:26→17:50)
[2017-03-07] MEDS: Doxazosin 2 MG Tab PO SCH (08:27)
[2017-03-07] MEDS: Losartan 50 MG Tab PO SCH (08:28)
[2017-03-07] MEDS: Ciprofloxacin 500 MG Tab PO SCH ×2 (08:28→20:47)
[2017-03-07] MEDS: Betamethasone Dipropionate 0.05% Crm 15 GM Tube TOP SCH ×2 (08:29→20:47)
[2017-03-07] MEDS: Hydrochlorothiazide 25 MG Tab PO SCH (08:29)
[2017-03-07] MEDS: Aspirin 81 MG Tab.EC PO SCH (08:29)
[2017-03-07] MEDS: Metoprolol Tartrate 50 MG Tab PO SCH ×2 (08:30→20:48)
[2017-03-07] MEDS: Clopidogrel 75 MG Tab PO SCH (08:30)
[2017-03-07] MEDS: Insulin Aspart 100 Units/ML 3 ML Pen SUBCUT SCH ×4 (08:31→21:40)
[2017-03-07] MEDS: Finasteride 5 MG Tab PO SCH (08:31)
[2017-03-07] MEDS: Silver Sulfadiazine 1% Crm 50 GM Tube TOP SCH (09:19)
[2017-03-07] MEDS: LACTOBACILLUS ACIDOPHILUS PO SCH ×2 (14:26→15:44)
[2017-03-07] MEDS: Tamsulosin 0.4 MG Cap.ER PO SCH (20:48)
[2017-03-07] MEDS: [UNRECOGNIZED DRUG - OTHER] PO SCH (20:50)
[2017-03-08] MEDS: Heparin Sodium 5,000 Units/ML Vial SUBCUT SCH ×3 (05:41→22:28)
[2017-03-08] MEDS: oxyCODONE ER 20 MG TAB.ER PO SCH ×3 (05:42→22:09)
[2017-03-08] MEDS: Acetaminophen/oxyCODONE 325-5 MG Tab PO PRN (08:03)
[2017-03-08] MEDS: Hydrochlorothiazide 25 MG Tab PO SCH (09:39)
[2017-03-08] MEDS: Aspirin 81 MG Tab.EC PO SCH (09:39)
[2017-03-08] MEDS: metFORMIN 500 MG Tab PO SCH ×2 (09:40→18:56)
[2017-03-08] MEDS: Ciprofloxacin 500 MG Tab PO SCH ×2 (09:40→22:09)
[2017-03-08] MEDS: Doxazosin 2 MG Tab PO SCH (09:40)
[2017-03-08] MEDS: Losartan 50 MG Tab PO SCH (09:40)
[2017-03-08] MEDS: Finasteride 5 MG Tab PO SCH (09:41)
[2017-03-08] MEDS: Clopidogrel 75 MG Tab PO SCH (09:41)
[2017-03-08] MEDS: Metoprolol Tartrate 50 MG Tab PO SCH ×2 (09:41→22:12)
[2017-03-08] MEDS: Betamethasone Dipropionate 0.05% Crm 15 GM Tube TOP SCH ×2 (09:46→22:14)
[2017-03-08] MEDS: Insulin Aspart 100 Units/ML 3 ML Pen SUBCUT SCH ×4 (09:48→22:15)
[2017-03-08] MEDS: Acetaminophen 325 MG Tab PO PRN (11:14)
[2017-03-08] MEDS: Silver Sulfadiazine 1% Crm 50 GM Tube TOP SCH (15:52)
[2017-03-08] MEDS: Ondansetron 4 MG Tab.DIS PO PRN (18:36)
[2017-03-08] MEDS ORDERED: Sodium Chloride 0.9% 500 ML IV SCH (19:30)
[2017-03-08] MEDS: Tamsulosin 0.4 MG Cap.ER PO SCH (22:09)
[2017-03-08] MEDS: [UNRECOGNIZED DRUG - OTHER] PO SCH (22:23)
[2017-03-09] MEDS: Acetaminophen/oxyCODONE 325-5 MG Tab PO PRN ×3 (02:00→19:52)
[2017-03-09] MEDS: oxyCODONE ER 20 MG TAB.ER PO SCH ×3 (05:37→21:18)
[2017-03-09] MEDS: Heparin Sodium 5,000 Units/ML Vial SUBCUT SCH ×3 (05:39→21:18)
[2017-03-09] MEDS: Finasteride 5 MG Tab PO SCH (09:46)
[2017-03-09] MEDS: Ciprofloxacin 500 MG Tab PO SCH ×2 (09:46→21:15)
[2017-03-09] MEDS: Clopidogrel 75 MG Tab PO SCH (09:46)
[2017-03-09] MEDS: Losartan 50 MG Tab PO SCH (09:52)
[2017-03-09] MEDS: metFORMIN 500 MG Tab PO SCH ×2 (09:52→17:37)
[2017-03-09] MEDS: Aspirin 81 MG Tab.EC PO SCH (09:53)
[2017-03-09] MEDS: Doxazosin 2 MG Tab PO SCH (09:53)
[2017-03-09] MEDS: Metoprolol Tartrate 50 MG Tab PO SCH ×2 (09:53→21:17)
[2017-03-09] MEDS: Betamethasone Dipropionate 0.05% Crm 15 GM Tube TOP SCH ×2 (09:54→21:41)
[2017-03-09] MEDS: Silver Sulfadiazine 1% Crm 50 GM Tube TOP SCH (10:26)
[2017-03-09] MEDS: Insulin Aspart 100 Units/ML 3 ML Pen SUBCUT SCH ×3 (14:35→22:04)
[2017-03-09] MEDS: Tamsulosin 0.4 MG Cap.ER PO SCH (21:15)
[2017-03-09] MEDS: [UNRECOGNIZED DRUG - OTHER] PO SCH (22:10)
[2017-03-10] MEDS: Heparin Sodium 5,000 Units/ML Vial SUBCUT SCH ×3 (05:46→21:38)
[2017-03-10] MEDS: oxyCODONE ER 20 MG TAB.ER PO SCH ×3 (05:46→21:33)
[2017-03-10] MEDS: Insulin Aspart 100 Units/ML 3 ML Pen SUBCUT SCH ×4 (08:00→21:32)
[2017-03-10] MEDS: metFORMIN 500 MG Tab PO SCH ×2 (09:17→18:16)
[2017-03-10] MEDS: Finasteride 5 MG Tab PO SCH (09:18)
[2017-03-10] MEDS: Clopidogrel 75 MG Tab PO SCH (09:18)
[2017-03-10] MEDS: Aspirin 81 MG Tab.EC PO SCH (09:18)
[2017-03-10] MEDS: Ciprofloxacin 500 MG Tab PO SCH ×2 (09:18→21:13)
[2017-03-10] MEDS: Acetaminophen/oxyCODONE 325-5 MG Tab PO PRN (09:54)
[2017-03-10] MEDS ORDERED: Losartan 50 MG Tab PO SCH (09:56)
[2017-03-10] MEDS: Doxazosin 2 MG Tab PO SCH ×2 (10:19→10:24)
[2017-03-10] MEDS: Losartan 50 MG Tab PO SCH ×2 (10:19→10:25)
[2017-03-10] MEDS: Metoprolol Tartrate 50 MG Tab PO SCH ×3 (10:20→21:22)
[2017-03-10] MEDS: Betamethasone Dipropionate 0.05% Crm 15 GM Tube TOP SCH ×2 (10:20→21:31)
[2017-03-10] MEDS: Calcium Carbonate 500 MG Tab.Chew PO PRN (16:26)
[2017-03-10] MEDS: Tamsulosin 0.4 MG Cap.ER PO SCH (21:13)
[2017-03-10] MEDS: [UNRECOGNIZED DRUG - OTHER] PO SCH (21:35)
[2017-03-11] MEDS: oxyCODONE ER 20 MG TAB.ER PO SCH ×3 (05:32→21:46)
[2017-03-11] MEDS: Heparin Sodium 5,000 Units/ML Vial SUBCUT SCH ×3 (05:33→21:46)
[2017-03-11] MEDS: Insulin Aspart 100 Units/ML 3 ML Pen SUBCUT SCH ×4 (07:53→21:47)
[2017-03-11] MEDS: Clopidogrel 75 MG Tab PO SCH (08:59)
[2017-03-11] MEDS: metFORMIN 500 MG Tab PO SCH ×2 (08:59→17:13)
[2017-03-11] MEDS: Ciprofloxacin 500 MG Tab PO SCH ×2 (08:59→21:46)
[2017-03-11] MEDS: Aspirin 81 MG Tab.EC PO SCH (08:59)
[2017-03-11] MEDS: Finasteride 5 MG Tab PO SCH (09:00)
[2017-03-11] MEDS: Metoprolol Tartrate 50 MG Tab PO SCH ×2 (09:00→21:47)
[2017-03-11] MEDS: Doxazosin 2 MG Tab PO SCH (09:00)
[2017-03-11] MEDS: Losartan 50 MG Tab PO SCH (09:00)
[2017-03-11] MEDS: Betamethasone Dipropionate 0.05% Crm 15 GM Tube TOP SCH ×2 (09:01→21:47)
[2017-03-11] MEDS: Calcium Carbonate 500 MG Tab.Chew PO PRN (09:59)
[2017-03-11] MEDS: Tamsulosin 0.4 MG Cap.ER PO SCH (21:46)
[2017-03-11] MEDS: [UNRECOGNIZED DRUG - OTHER] PO SCH (21:47)
[2017-03-12] MEDS: Heparin Sodium 5,000 Units/ML Vial SUBCUT SCH ×3 (05:33→22:28)
[2017-03-12] MEDS: oxyCODONE ER 20 MG TAB.ER PO SCH ×3 (05:33→22:29)
[2017-03-12] MEDS: Acetaminophen/oxyCODONE 325-5 MG Tab PO PRN (07:56)
[2017-03-12] MEDS: metFORMIN 500 MG Tab PO SCH (09:22)
[2017-03-12] MEDS: Ciprofloxacin 500 MG Tab PO SCH (09:22)
[2017-03-12] MEDS: Finasteride 5 MG Tab PO SCH (09:23)
[2017-03-12] MEDS: Doxazosin 2 MG Tab PO SCH (09:24)
[2017-03-12] MEDS: Aspirin 81 MG Tab.EC PO SCH (09:25)
[2017-03-12] MEDS: Betamethasone Dipropionate 0.05% Crm 15 GM Tube TOP SCH (09:25)
[2017-03-12] MEDS: Losartan 50 MG Tab PO SCH (09:25)
[2017-03-12] MEDS: Clopidogrel 75 MG Tab PO SCH (09:26)
[2017-03-12] MEDS: Metoprolol Tartrate 50 MG Tab PO SCH ×2 (09:26→22:27)
[2017-03-12] MEDS: Insulin Aspart 100 Units/ML 3 ML Pen SUBCUT SCH ×5 (10:23→22:40)
[2017-03-12] MEDS: Calcium Carbonate 500 MG Tab.Chew PO PRN (11:40)
--- NOTE | 2017-03-12 14:17 | PCM.PN ---
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 Denies: Fever Pulmonary: Denies: Shortness of Breath Gastrointestinal: Denies: Abdominal Pain Genitourinary: Denies: Dysuria Neurological: Denies: Confusion - Patient Data Vitals - Most Recent: Last Vital Signs Temp 37.1 C 03/12/17 08:20 Pulse 76 03/12/17 08:20 Resp 20 03/12/17 08:20 BP 93/47 L 03/12/17 09:26 Pulse Ox 93 L 03/12/17 08:20 Weight - Most Recent: 82.645 kg I&O - Last 24 Hours: Intake & Output 03/11/17 03/12/17 03/12/17 22:59 06:59 14:59 Intake Total 200 400 120 Output Total 450 Balance 200 -50 120 Lab Results Last 24 Hours: Laboratory Results - last 24 hr 03/11/17 03/11/17 03/12/17 Range/Units 16:52 20:37 07:58 POC Glucose 113 H 115 H 99 (83-110) mg/dl 03/12/17 Range/Units 11:07 POC Glucose 209 H (83-110) mg/dl Med Orders - Current: Current Medications Acetaminophen (Tylenol) 650 mg PO Q4H PRN PRN Reason: Pain (Mild 1-3)/fever Last Admin: 03/08/17 11:14 Dose: 650 mg Aspirin (Halfprin) 81 mg PO DAILY [facility] Last Admin: 03/12/17 09:25 Dose: 81 mg Betamethasone/Clotrimazole (Lotrisone) 0 gm TOP BID PRN PRN Reason: Itching Calcium Carbonate/Glycine (Tums) 500 mg PO Q4H PRN PRN Reason: Abdominal Pain Last Admin: 03/12/17 11:40 Dose: 500 mg Ciprofloxacin (Ciprofloxacin Hcl) 500 mg PO BID [facility] Last Admin: 03/12/17 09:22 Dose: 500 mg Clopidogrel Bisulfate (Plavix) 75 mg PO DAILY [facility] Last Admin: 03/12/17 09:26 Dose: 75 mg Doxazosin Mesylate (Cardura) 8 mg PO DAILY [facility] Last Admin: 03/12/17 09:24 Dose: Not Given Finasteride (Proscar) 5 mg PO DAILY [facility] Last Admin: 03/12/17 09:23 Dose: 5 mg Gabapentin (Neurontin) 100 mg PO TID [facility] Heparin Sodium (Porcine) (Heparin Sodium) 5,000 units SUBCUT Q8HR [facility] Last Admin: 03/12/17 05:33 Dose: 5,000 units Insulin Aspart (Novolog) 0 unit SUBCUT QIDACANDBED [facility] PRN Reason: Protocol Last Admin: 03/12/17 12:26 Dose: 2 units Lorazepam (Ativan) 0.5 mg PO BID PRN PRN Reason: Anxiety Magnesium Hydroxide (Milk Of Magnesia) 30 ml PO BID PRN PRN Reason: Constipation Methyl Salicylate (Icy Hot Cream) 0 gm TOP TID PRN PRN Reason: Pain Metoprolol Tartrate (Lopressor) 50 mg PO BID [facility] Last Admin: 03/12/17 09:26 Dose: Not Given Naproxen (Naprosyn) 250 mg PO BEDTIME PRN PRN Reason: Sleep Ondansetron HCl (Zofran Odt) 4 mg PO Q6H PRN PRN Reason: nausea, able to take PO Last Admin: 03/08/17 18:36 Dose: 4 mg Oxycodone HCl (Oxycontin) 20 mg PO Q8HR [facility] Last Admin: 03/12/17 05:33 Dose: 20 mg Oxycodone/Acetaminophen (Percocet 325-5 Mg) 0.5 tab PO Q4HR PRN PRN Reason: Pain Last Admin: 03/12/17 07:56 Dose: 0.5 tab Pantoprazole Sodium (Protonix) 40 mg PO ACBREAKFAST [facility] Lactobacillus Acidophilus ( Florajen 3)Pt's Own Med 1 each PO BEDTIME [facility] Last Admin: 03/11/17 21:47 Dose: 1 each Polyethylene Glycol (Miralax) 17 gm PO DAILY PRN PRN Reason: Constipation Tamsulosin HCl (Flomax) 0.4 mg PO BEDTIME [facility] Last Admin: 03/11/17 21:46 Dose: 0.4 mg Discontinued Medications Betamethasone Dipropionate (Diprosone 0.05% Crm) 0 gm TOP BID [facility] Last Admin: 03/12/17 09:25 Dose: Not Given Doxazosin Mesylate (Cardura) 8 mg PO DAILY [facility] Last Admin: 03/10/17 10:19 Dose: Not Given Hydrochlorothiazide (Hydrochlorothiazide) 25 mg PO DAILY [facility] Last Admin: 03/08/17 09:39 Dose: 25 mg Sodium Chloride (Normal Saline) 500 mls @ 250 mls/hr IV ASDIRECTED [facility] Stop: 03/08/17 21:29 Last Admin: 03/08/17 19:50 Dose: 125 mls/hr Insulin Aspart (Novolog) 0 unit SUBCUT QID [facility] PRN Reason: Protocol Last Admin: 03/08/17 22:15 Dose: Not Given Losartan Potassium (Cozaar) 100 mg PO DAILY [facility] Last Admin: 03/10/17 10:19 Dose: Not Given Losartan Potassium (Cozaar) 50 mg PO DAILY [facility] Losartan Potassium (Cozaar) 50 mg PO DAILY [facility] Last Admin: 03/12/17 09:25 Dose: Not Given Metformin HCl (Glucophage) 500 mg PO BIDMEALS [facility] Last Admin: 03/12/17 09:22 Dose: 500 mg Metoprolol Tartrate (Lopressor) 50 mg PO BID [facility] Last Admin: 03/10/17 10:20 Dose: Not Given Non-Formulary Medication (Hydrocortisone Valerate [Hydrocortisone Valerate 0.2% Crm]) 1 applic TOP BID PRN PRN Reason: Itching Lactobacillus Acidophilus ( Florajen 3)Pt's Own Med 1 each PO DAILY [facility] Last Admin: 03/07/17 15:44 Dose: Not Given Silver Sulfadiazine (Silvadene 1% Cream 50 Gm) 0 gm TOP DAILY [facility] Last Admin: 03/09/17 10:26 Dose: Not Given - Exam General: Alert, Oriented Neck: Supple Lungs: Clear to Auscultation, Normal Respiratory Effort Cardiovascular: Regular Rate, Regular Rhythm Extremities: Other (left LE amputation BKA) Skin: Warm, Dry Wound/Incisions: No Drainage Psy/Mental Status: Alert, Normal Affect, Normal Mood - Problem List & Annotations (1) CHASITY (acute kidney injury) SNOMED Code(s): 39365019 Code(s): N17.9 - ACUTE KIDNEY FAILURE, UNSPECIFIED Status: Acute Current Visit: Yes (2) Amputated left leg SNOMED Code(s): 951670152 Code(s): Z89.612 - ACQUIRED ABSENCE OF LEFT LEG ABOVE KNEE Status: Acute Current Visit: Yes (3) Diabetes SNOMED Code(s): 82786708 Code(s): E11.9 - TYPE 2 DIABETES MELLITUS WITHOUT COMPLICATIONS Status: Acute Current Visit: Yes - Problem List Review Problem List Initiated/Reviewed/Updated: Yes - My Orders Last 24 Hours: My Active Orders 03/12/17 14:04 Blood Glucose Check, Bedside [RC] BIDAC 03/12/17 15:00 Pantoprazole [ProTONIX] 40 mg PO ACBREAKFAST 03/12/17 21:00 Gabapentin [Neurontin] 100 mg PO TID - Plan Plan:: Assessment and plan: #. Ischemic left foot. The patient initially had amputation of the left toes but due to poor wound healing he underwent left below knee amputation wound is healing well #. Diabetes mellitus2 has been well controlled with metformin due to renal failure will stop metformin follow BS use ISScale as needed #. Hypertension now episodes of hypotension with CHASITY stop cozaar metoprolol with holding parameters #. CHASITY with h/o Chronic kidney disease stage III Baseline creatinine has been about 1.4-1.5 stop cozaar improve BP will follow #. Peripheral artery disease Procedures on aspirin Plavix and statin #. leukocytosis with Possible urinary tract infection on cipro will decrease dose re: renal failure #. Urinary retention. Was thought to be due to opiates Patient has an indwelling Jaffe catheter
[2017-03-12] MEDS: Pantoprazole 40 MG Tab.CR PO SCH (14:32)
[2017-03-12] MEDS: Ondansetron 4 MG Tab.DIS PO PRN (15:12)
[2017-03-12] MEDS: Magnesium Hydroxide 400 MG/5 ML Susp 30 ML Cup PO PRN (15:13)
[2017-03-12] MEDS: Tamsulosin 0.4 MG Cap.ER PO SCH (22:27)
[2017-03-12] MEDS: Gabapentin 100 MG Cap PO SCH (22:28)
[2017-03-12] MEDS: [UNRECOGNIZED DRUG - OTHER] PO SCH (22:34)
[2017-03-13] MEDS: Heparin Sodium 5,000 Units/ML Vial SUBCUT SCH ×3 (06:41→21:20)
[2017-03-13] MEDS: Pantoprazole 40 MG Tab.CR PO SCH (06:42)
[2017-03-13] MEDS: oxyCODONE ER 20 MG TAB.ER PO SCH ×3 (06:42→21:18)
[2017-03-13] MEDS: Ciprofloxacin 500 MG Tab PO SCH (09:50)
[2017-03-13] MEDS: Clopidogrel 75 MG Tab PO SCH (09:50)
[2017-03-13] MEDS: Finasteride 5 MG Tab PO SCH (09:50)
[2017-03-13] MEDS: Aspirin 81 MG Tab.EC PO SCH (09:50)
[2017-03-13] MEDS: Insulin Aspart 100 Units/ML 3 ML Pen SUBCUT SCH ×2 (09:50→21:19)
[2017-03-13] MEDS: Doxazosin 2 MG Tab PO SCH (09:57)
[2017-03-13] MEDS: Metoprolol Tartrate 50 MG Tab PO SCH ×2 (09:58→21:30)
[2017-03-13] MEDS: Gabapentin 100 MG Cap PO SCH ×3 (10:01→21:18)
[2017-03-13] MEDS: Ondansetron 4 MG Tab.DIS PO PRN ×2 (12:20→18:33)
[2017-03-13] MEDS: Calcium Carbonate 500 MG Tab.Chew PO PRN (12:43)
[2017-03-13] MEDS: Docusate Sodium 100 MG Cap PO SCH (21:18)
[2017-03-13] MEDS: Tamsulosin 0.4 MG Cap.ER PO SCH (21:18)
[2017-03-13] MEDS: [UNRECOGNIZED DRUG - OTHER] PO SCH (21:24)
[2017-03-14] MEDS: Pantoprazole 40 MG Tab.CR PO SCH (06:49)
[2017-03-14] MEDS: Heparin Sodium 5,000 Units/ML Vial SUBCUT SCH (06:49)
[2017-03-14] MEDS: oxyCODONE ER 20 MG TAB.ER PO SCH ×3 (06:49→22:11)
[2017-03-14] MEDS: Ondansetron 4 MG Tab.DIS PO PRN (06:49)
[2017-03-14] MEDS: Ciprofloxacin 500 MG Tab PO SCH (09:28)
[2017-03-14] MEDS: Finasteride 5 MG Tab PO SCH (09:28)
[2017-03-14] MEDS: Clopidogrel 75 MG Tab PO SCH (09:29)
[2017-03-14] MEDS: Gabapentin 100 MG Cap PO SCH ×3 (09:29→20:56)
[2017-03-14] MEDS: Aspirin 81 MG Tab.EC PO SCH (09:29)
[2017-03-14] MEDS: Metoprolol Tartrate 25 MG Tab PO SCH ×2 (09:30→20:56)
[2017-03-14] MEDS: Doxazosin 2 MG Tab PO SCH (09:30)
[2017-03-14] MEDS: Docusate Sodium 100 MG Cap PO SCH ×2 (09:31→20:55)
[2017-03-14] MEDS: Insulin Aspart 100 Units/ML 3 ML Pen SUBCUT SCH ×2 (09:32→20:58)
[2017-03-14] MEDS: Acetaminophen 325 MG Tab PO PRN (16:51)
[2017-03-14] MEDS: Tamsulosin 0.4 MG Cap.ER PO SCH (20:55)
[2017-03-14] MEDS: [UNRECOGNIZED DRUG - OTHER] PO SCH (20:58)
[2017-03-15] MEDS: oxyCODONE ER 20 MG TAB.ER PO SCH ×3 (06:04→21:39)
[2017-03-15] MEDS: Pantoprazole 40 MG Tab.CR PO SCH (06:04)
[2017-03-15] MEDS: Finasteride 5 MG Tab PO SCH (08:52)
[2017-03-15] MEDS: Docusate Sodium 100 MG Cap PO SCH ×2 (08:52→21:36)
[2017-03-15] MEDS: Aspirin 81 MG Tab.EC PO SCH (08:52)
[2017-03-15] MEDS: Gabapentin 100 MG Cap PO SCH ×3 (08:53→21:38)
[2017-03-15] MEDS: Ciprofloxacin 500 MG Tab PO SCH (08:53)
[2017-03-15] MEDS: Clopidogrel 75 MG Tab PO SCH (08:53)
[2017-03-15] MEDS: Metoprolol Tartrate 25 MG Tab PO SCH ×2 (08:54→21:37)
[2017-03-15] MEDS: Doxazosin 2 MG Tab PO SCH (08:54)
[2017-03-15] MEDS: Insulin Aspart 100 Units/ML 3 ML Pen SUBCUT SCH ×4 (09:00→21:38)
[2017-03-15] MEDS: Ondansetron 4 MG Tab.DIS PO PRN (11:56)
--- NOTE | 2017-03-15 16:03 | PCM.PN ---
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 Peripheral artery disease Type 2 diabetes mellitus Subjective Update: continues to have left leg pain but improved moderate, since amputation associated with nausea BP has been better has pandey with good uo - Review of Systems General: Denies: Fever Pulmonary: Denies: Shortness of Breath Cardiovascular: Denies: Chest Pain Gastrointestinal: Denies: Abdominal Pain Genitourinary: Denies: Dysuria Psychiatric: Denies: Confusion - Patient Data Vitals - Most Recent: Last Vital Signs Temp 36.5 C 03/15/17 15:54 Pulse 65 03/15/17 15:54 Resp 20 03/15/17 15:54 BP 106/47 L 03/15/17 15:54 Pulse Ox 97 03/15/17 15:54 Weight - Most Recent: 82.645 kg I&O - Last 24 Hours: Intake & Output 03/15/17 03/15/17 03/15/17 06:59 14:59 22:59 Intake Total 700 Output Total 1400 Balance -700 Lab Results Last 24 Hours: Laboratory Results - last 24 hr 03/14/17 03/14/17 03/15/17 Range/Units 17:01 20:48 06:27 WBC 10.6 H (5.0-10.0) 10^3/uL RBC 2.97 L (4.6-6.2) 10^6/uL Hgb 9.1 L (14.0-18.0) g/dL Hct 27.6 L (40.0-54.0) % MCV 92.9 (80-100) fL MCH 30.6 (27.0-34.0) pg MCHC 33.0 (33.0-35.0) g/dL Plt Count 450 (150-450) 10^3/uL Neut % (Auto) 65.7 (42.2-75.2) % Lymph % (Auto) 14.0 L (20.5-50.1) % [place] % (Auto) 10.3 H (2-8) % Eos % (Auto) 9.8 H (1.0-3.0) % Baso % (Auto) 0.2 (0.0-1.0) % Sodium (135-145) mmol/L Potassium (3.6-5.0) mmol/L Chloride (101-111) mmol/L Carbon Dioxide (21.0-31.0) mmol/L Anion Gap BUN (7-18) mg/dL Creatinine (0.6-1.3) mg/dL Est Cr Clr Drug Dosing mL/min Estimated GFR (MDRD) Glucose (74-105) mg/dL POC Glucose 122 H 141 H (83-110) mg/dl Calcium (8.4-10.2) mg/dl 03/15/17 03/15/17 03/15/17 Range/Units 06:27 07:48 11:14 WBC (5.0-10.0) 10^3/uL RBC (4.6-6.2) 10^6/uL Hgb (14.0-18.0) g/dL Hct (40.0-54.0) % MCV (80-100) fL MCH (27.0-34.0) pg MCHC (33.0-35.0) g/dL Plt Count (150-450) 10^3/uL Neut % (Auto) (42.2-75.2) % Lymph % (Auto) (20.5-50.1) % [place] % (Auto) (2-8) % Eos % (Auto) (1.0-3.0) % Baso % (Auto) (0.0-1.0) % Sodium 140 (135-145) mmol/L Potassium 3.8 (3.6-5.0) mmol/L Chloride 104 (101-111) mmol/L Carbon Dioxide 24.0 (21.0-31.0) mmol/L Anion Gap 15.8 BUN 36 H (7-18) mg/dL Creatinine 1.9 H (0.6-1.3) mg/dL Est Cr Clr Drug Dosing 23.80 mL/min Estimated GFR (MDRD) 34 Glucose 106 H (74-105) mg/dL POC Glucose 90 157 H (83-110) mg/dl Calcium 9.0 (8.4-10.2) mg/dl Med Orders - Current: Current Medications Acetaminophen (Tylenol) 650 mg PO Q4H PRN PRN Reason: Pain (Mild 1-3)/fever Last Admin: 03/14/17 16:51 Dose: 650 mg Aspirin (Halfprin) 81 mg PO DAILY [facility] Last Admin: 03/15/17 08:52 Dose: 81 mg Betamethasone/Clotrimazole (Lotrisone) 0 gm TOP BID PRN PRN Reason: Itching Calcium Carbonate/Glycine (Tums) 500 mg PO Q4H PRN PRN Reason: Abdominal Pain Last Admin: 03/13/17 12:43 Dose: 500 mg Ciprofloxacin (Ciprofloxacin Hcl) 250 mg PO DAILY [facility] Last Admin: 03/15/17 08:53 Dose: 250 mg Clopidogrel Bisulfate (Plavix) 75 mg PO DAILY [facility] Last Admin: 03/15/17 08:53 Dose: 75 mg Docusate Sodium (Colace) 200 mg PO BID [facility] Last Admin: 03/15/17 08:52 Dose: 200 mg Doxazosin Mesylate (Cardura) 8 mg PO DAILY [facility] Last Admin: 03/15/17 08:54 Dose: 8 mg Finasteride (Proscar) 5 mg PO DAILY [facility] Last Admin: 03/15/17 08:52 Dose: 5 mg Gabapentin (Neurontin) 100 mg PO TID [facility] Last Admin: 03/15/17 13:53 Dose: 100 mg Insulin Aspart (Novolog) 0 unit SUBCUT QID [facility] PRN Reason: Protocol Last Admin: 03/15/17 12:38 Dose: 1 unit Lorazepam (Ativan) 0.5 mg PO BID PRN PRN Reason: Anxiety Magnesium Hydroxide (Milk Of Magnesia) 30 ml PO BID PRN PRN Reason: Constipation Methyl Salicylate (Icy Hot Cream) 0 gm TOP TID PRN PRN Reason: Pain Metoclopramide HCl (Reglan) 10 mg PO TIDAC [facility] Metoprolol Tartrate (Lopressor) 25 mg PO BID [facility] Last Admin: 03/15/17 08:54 Dose: 25 mg Naproxen (Naprosyn) 250 mg PO BEDTIME PRN PRN Reason: Sleep Ondansetron HCl (Zofran Odt) 4 mg PO Q6H PRN PRN Reason: nausea, able to take PO Last Admin: 03/15/17 11:56 Dose: 4 mg Oxycodone HCl (Oxycontin) 20 mg PO Q8HR [facility] Last Admin: 03/15/17 13:53 Dose: 20 mg Oxycodone/Acetaminophen (Percocet 325-5 Mg) 0.5 tab PO Q4HR PRN PRN Reason: Pain Last Admin: 03/12/17 07:56 Dose: 0.5 tab Pantoprazole Sodium (Protonix) 40 mg PO ACBREAKFAST [facility] Last Admin: 03/15/17 06:04 Dose: 40 mg Lactobacillus Acidophilus ( Florajen 3)Pt's Own Med 1 each PO BEDTIME [facility] Last Admin: 03/14/17 20:58 Dose: 1 each Polyethylene Glycol (Miralax) 17 gm PO DAILY PRN PRN Reason: Constipation Tamsulosin HCl (Flomax) 0.4 mg PO BEDTIME [facility] Last Admin: 03/14/17 20:55 Dose: 0.4 mg Discontinued Medications Betamethasone Dipropionate (Diprosone 0.05% Crm) 0 gm TOP BID [facility] Last Admin: 03/12/17 09:25 Dose: Not Given Ciprofloxacin (Ciprofloxacin Hcl) 500 mg PO BID [facility] Last Admin: 03/12/17 09:22 Dose: 500 mg Doxazosin Mesylate (Cardura) 8 mg PO DAILY [facility] Last Admin: 03/10/17 10:19 Dose: Not Given Heparin Sodium (Porcine) (Heparin Sodium) 5,000 units SUBCUT Q8HR [facility] Last Admin: 03/14/17 06:49 Dose: Not Given Hydrochlorothiazide (Hydrochlorothiazide) 25 mg PO DAILY [facility] Last Admin: 03/08/17 09:39 Dose: 25 mg Sodium Chloride (Normal Saline) 500 mls @ 250 mls/hr IV ASDIRECTED [facility] Stop: 03/08/17 21:29 Last Admin: 03/08/17 19:50 Dose: 125 mls/hr Insulin Aspart (Novolog) 0 unit SUBCUT QID [facility] PRN Reason: Protocol Last Admin: 03/08/17 22:15 Dose: Not Given Insulin Aspart (Novolog) 0 unit SUBCUT QIDACANDBED [facility] PRN Reason: Protocol Last Admin: 03/12/17 17:55 Dose: Not Given Insulin Aspart (Novolog) 0 unit SUBCUT BID [facility] PRN Reason: Protocol Last Admin: 03/14/17 20:58 Dose: Not Given Losartan Potassium (Cozaar) 100 mg PO DAILY [facility] Last Admin: 03/10/17 10:19 Dose: Not Given Losartan Potassium (Cozaar) 50 mg PO DAILY [facility] Losartan Potassium (Cozaar) 50 mg PO DAILY [facility] Last Admin: 03/12/17 09:25 Dose: Not Given Metformin HCl (Glucophage) 500 mg PO BIDMEALS [facility] Last Admin: 03/12/17 09:22 Dose: 500 mg Metoprolol Tartrate (Lopressor) 50 mg PO BID [facility] Last Admin: 03/10/17 10:20 Dose: Not Given Metoprolol Tartrate (Lopressor) 50 mg PO BID [facility] Last Admin: 03/13/17 21:30 Dose: Not Given Non-Formulary Medication (Hydrocortisone Valerate [Hydrocortisone Valerate 0.2% Crm]) 1 applic TOP BID PRN PRN Reason: Itching Lactobacillus Acidophilus ( Florajen 3)Pt's Own Med 1 each PO DAILY [facility] Last Admin: 03/07/17 15:44 Dose: Not Given Silver Sulfadiazine (Silvadene 1% Cream 50 Gm) 0 gm TOP DAILY [facility] [place] Last Admin: 03/09/17 10:26 Dose: Not Given - Exam General: Alert, Oriented Neck: Supple Lungs: Clear to Auscultation, Normal Respiratory Effort Cardiovascular: Regular Rate, Regular Rhythm GI/Abdominal Exam: Normal Bowel Sounds (Male) Exam: Other (pandey cath) Back Exam: Normal Inspection Extremities: Other (s/p left amputation) Skin: Warm, Dry Psy/Mental Status: Alert, Normal Affect - Problem List & Annotations (1) CHASITY (acute kidney injury) SNOMED Code(s): 49105769 Code(s): N17.9 - ACUTE KIDNEY FAILURE, UNSPECIFIED Status: Acute Current Visit: Yes (2) Amputated left leg SNOMED Code(s): 639046623 Code(s): Z89.612 - ACQUIRED ABSENCE OF LEFT LEG ABOVE KNEE Status: Acute Current Visit: Yes (3) Diabetes SNOMED Code(s): 93666876 Code(s): E11.9 - TYPE 2 DIABETES MELLITUS WITHOUT COMPLICATIONS Status: Acute Current Visit: Yes - Problem List Review Problem List Initiated/Reviewed/Updated: Yes - My Orders Last 24 Hours: My Active Orders 03/15/17 17:00 Metoclopramide [Reglan] 10 mg PO TIDAC - Plan Plan:: Assessment and plan: #. Ischemic left foot. The patient initially had amputation of the left toes but due to poor wound healing he underwent left below knee amputation wound is healing well #. Diabetes mellitus2 has been well controlled with metformin due to renal failure will stop metformin follow BS use ISScale as needed #. Hypertension had episodes of hypotension with CHASITY stopped cozaar continue metoprolol with holding parameters #. CHASITY with h/o Chronic kidney disease stage III Baseline creatinine has been about 1.4-1.5 stop cozaar improved BP creat better has good uo will follow urinary retention has pandey cath now will remove on Saturday if can not urinate will have Urology appt on Sat #. Peripheral artery disease Procedures on aspirin Plavix and statin #. leukocytosis with Possible urinary tract infection on cipro improved continue for now
[2017-03-15] MEDS: Metoclopramide 10 MG Tab PO SCH (17:04)
[2017-03-15] MEDS: [UNRECOGNIZED DRUG - OTHER] PO SCH (21:36)
[2017-03-15] MEDS: Tamsulosin 0.4 MG Cap.ER PO SCH (21:38)
[2017-03-16] MEDS: oxyCODONE ER 20 MG TAB.ER PO SCH ×3 (06:13→22:12)
[2017-03-16] MEDS: Pantoprazole 40 MG Tab.CR PO SCH (06:13)
[2017-03-16] MEDS: Metoclopramide 10 MG Tab PO SCH ×3 (07:50→16:45)
[2017-03-16] MEDS: Gabapentin 100 MG Cap PO SCH ×3 (08:32→21:00)
[2017-03-16] MEDS: Doxazosin 2 MG Tab PO SCH (08:33)
[2017-03-16] MEDS: Ciprofloxacin 500 MG Tab PO SCH (08:33)
[2017-03-16] MEDS: Finasteride 5 MG Tab PO SCH (08:34)
[2017-03-16] MEDS: Docusate Sodium 100 MG Cap PO SCH ×2 (08:34→21:00)
[2017-03-16] MEDS: Metoprolol Tartrate 25 MG Tab PO SCH ×2 (08:34→21:01)
[2017-03-16] MEDS: Aspirin 81 MG Tab.EC PO SCH (08:35)
[2017-03-16] MEDS: Insulin Aspart 100 Units/ML 3 ML Pen SUBCUT SCH ×4 (08:35→22:11)
[2017-03-16] MEDS: Clopidogrel 75 MG Tab PO SCH (08:35)
[2017-03-16] MEDS: Tamsulosin 0.4 MG Cap.ER PO SCH (21:00)
[2017-03-16] MEDS: [UNRECOGNIZED DRUG - OTHER] PO SCH (22:12)
[2017-03-17] MEDS: Pantoprazole 40 MG Tab.CR PO SCH (05:50)
[2017-03-17] MEDS: oxyCODONE ER 20 MG TAB.ER PO SCH ×3 (05:51→23:44)
[2017-03-17] MEDS: Metoclopramide 10 MG Tab PO SCH ×3 (08:02→17:33)
[2017-03-17] MEDS: Ciprofloxacin 500 MG Tab PO SCH (10:34)
[2017-03-17] MEDS: Finasteride 5 MG Tab PO SCH (10:35)
[2017-03-17] MEDS: Gabapentin 100 MG Cap PO SCH ×3 (10:35→23:43)
[2017-03-17] MEDS: Clopidogrel 75 MG Tab PO SCH (10:35)
[2017-03-17] MEDS: Doxazosin 2 MG Tab PO SCH (10:35)
[2017-03-17] MEDS: Aspirin 81 MG Tab.EC PO SCH (10:35)
[2017-03-17] MEDS: Metoprolol Tartrate 25 MG Tab PO SCH ×2 (10:36→23:42)
[2017-03-17] MEDS: Docusate Sodium 100 MG Cap PO SCH ×2 (10:37→23:43)
[2017-03-17] MEDS: Insulin Aspart 100 Units/ML 3 ML Pen SUBCUT SCH ×4 (10:37→23:44)
[2017-03-17] MEDS: Tamsulosin 0.4 MG Cap.ER PO SCH (23:43)
[2017-03-17] MEDS: Acetaminophen/oxyCODONE 325-5 MG Tab PO PRN (23:45)
[2017-03-17] MEDS: [UNRECOGNIZED DRUG - OTHER] PO SCH (23:55)
[2017-03-18] MEDS: oxyCODONE ER 20 MG TAB.ER PO SCH ×3 (07:49→21:53)
[2017-03-18] MEDS: Pantoprazole 40 MG Tab.CR PO SCH (07:49)
[2017-03-18] MEDS: Clopidogrel 75 MG Tab PO SCH (10:17)
[2017-03-18] MEDS: Docusate Sodium 100 MG Cap PO SCH ×2 (10:17→21:52)
[2017-03-18] MEDS: Metoclopramide 10 MG Tab PO SCH ×3 (10:17→17:22)
[2017-03-18] MEDS: Aspirin 81 MG Tab.EC PO SCH (10:17)
[2017-03-18] MEDS: Ciprofloxacin 500 MG Tab PO SCH (10:18)
[2017-03-18] MEDS: Gabapentin 100 MG Cap PO SCH ×3 (10:18→21:53)
[2017-03-18] MEDS: Insulin Aspart 100 Units/ML 3 ML Pen SUBCUT SCH ×4 (10:18→21:36)
[2017-03-18] MEDS: Finasteride 5 MG Tab PO SCH (10:18)
[2017-03-18] MEDS: Metoprolol Tartrate 25 MG Tab PO SCH ×2 (10:22→21:52)
[2017-03-18] MEDS: Doxazosin 2 MG Tab PO SCH (10:22)
[2017-03-18] MEDS: Tamsulosin 0.4 MG Cap.ER PO SCH (21:53)
[2017-03-18] MEDS: [UNRECOGNIZED DRUG - OTHER] PO SCH (21:55)
[2017-03-19] MEDS: oxyCODONE ER 20 MG TAB.ER PO SCH ×3 (05:42→21:14)
[2017-03-19] MEDS: Pantoprazole 40 MG Tab.CR PO SCH (05:43)
[2017-03-19] MEDS: Gabapentin 100 MG Cap PO SCH ×3 (09:13→20:40)
[2017-03-19] MEDS: Docusate Sodium 100 MG Cap PO SCH ×2 (09:13→20:40)
[2017-03-19] MEDS: Ciprofloxacin 500 MG Tab PO SCH (09:14)
[2017-03-19] MEDS: Clopidogrel 75 MG Tab PO SCH (09:14)
[2017-03-19] MEDS: Aspirin 81 MG Tab.EC PO SCH (09:14)
[2017-03-19] MEDS: Metoclopramide 10 MG Tab PO SCH ×3 (09:14→16:59)
[2017-03-19] MEDS: Finasteride 5 MG Tab PO SCH (09:15)
[2017-03-19] MEDS: Doxazosin 2 MG Tab PO SCH (09:15)
[2017-03-19] MEDS: Metoprolol Tartrate 25 MG Tab PO SCH ×2 (09:16→20:41)
[2017-03-19] MEDS: Insulin Aspart 100 Units/ML 3 ML Pen SUBCUT SCH ×4 (09:17→21:34)
--- NOTE | 2017-03-19 16:34 | PCM.PN ---
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 Denies: Fever Pulmonary: Denies: Shortness of Breath Cardiovascular: Denies: Chest Pain Neurological: Denies: Confusion - Patient Data Vitals - Most Recent: Last Vital Signs Temp 36.1 C 03/19/17 07:00 Pulse 68 03/19/17 09:16 Resp 20 03/19/17 07:00 BP 116/50 L 03/19/17 09:16 Pulse Ox 97 03/19/17 07:00 Weight - Most Recent: 82.645 kg I&O - Last 24 Hours: Intake & Output 03/19/17 03/19/17 03/19/17 06:59 14:59 22:59 Intake Total 600 240 Output Total 1375 550 Balance -775 240 -550 Lab Results Last 24 Hours: Laboratory Results - last 24 hr 03/18/17 03/18/17 03/19/17 Range/Units 16:52 21:28 08:06 POC Glucose 168 H 129 H 98 (83-110) mg/dl 03/19/17 Range/Units 11:02 POC Glucose 138 H (83-110) mg/dl Med Orders - Current: Current Medications Acetaminophen (Tylenol) 650 mg PO Q4H PRN PRN Reason: Pain (Mild 1-3)/fever Last Admin: 03/14/17 16:51 Dose: 650 mg Aspirin (Halfprin) 81 mg PO DAILY [facility] Last Admin: 03/19/17 09:14 Dose: 81 mg Betamethasone/Clotrimazole (Lotrisone) 0 gm TOP BID PRN PRN Reason: Itching Calcium Carbonate/Glycine (Tums) 500 mg PO Q4H PRN PRN Reason: Abdominal Pain Last Admin: 03/13/17 12:43 Dose: 500 mg Ciprofloxacin (Ciprofloxacin Hcl) 250 mg PO DAILY [facility] Last Admin: 03/19/17 09:14 Dose: 250 mg Clopidogrel Bisulfate (Plavix) 75 mg PO DAILY [facility] Last Admin: 03/19/17 09:14 Dose: 75 mg Docusate Sodium (Colace) 200 mg PO BID [facility] Last Admin: 03/19/17 09:13 Dose: 200 mg Doxazosin Mesylate (Cardura) 8 mg PO DAILY [facility] Last Admin: 03/19/17 09:15 Dose: 8 mg Finasteride (Proscar) 5 mg PO DAILY [facility] Last Admin: 03/19/17 09:15 Dose: 5 mg Gabapentin (Neurontin) 100 mg PO TID [facility] Last Admin: 03/19/17 14:31 Dose: 100 mg Insulin Aspart (Novolog) 0 unit SUBCUT QID [facility] PRN Reason: Protocol Last Admin: 03/19/17 12:55 Dose: Not Given Lorazepam (Ativan) 0.5 mg PO BID PRN PRN Reason: Anxiety Magnesium Hydroxide (Milk Of Magnesia) 30 ml PO BID PRN PRN Reason: Constipation Methyl Salicylate (Icy Hot Cream) 0 gm TOP TID PRN PRN Reason: Pain Metoclopramide HCl (Reglan) 10 mg PO TIDAC [facility] Last Admin: 03/19/17 11:36 Dose: 10 mg Metoprolol Tartrate (Lopressor) 25 mg PO BID [facility] Last Admin: 03/19/17 09:16 Dose: 25 mg Naproxen (Naprosyn) 250 mg PO BEDTIME PRN PRN Reason: Sleep Ondansetron HCl (Zofran Odt) 4 mg PO Q6H PRN PRN Reason: nausea, able to take PO Last Admin: 03/15/17 11:56 Dose: 4 mg Oxycodone HCl (Oxycontin) 20 mg PO Q8HR [facility] Last Admin: 03/19/17 14:32 Dose: 20 mg Oxycodone/Acetaminophen (Percocet 325-5 Mg) 0.5 tab PO Q4HR PRN PRN Reason: Pain Last Admin: 03/17/17 23:45 Dose: 0.5 tab Pantoprazole Sodium (Protonix) 40 mg PO ACBREAKFAST [facility] Last Admin: 03/19/17 05:43 Dose: 40 mg Lactobacillus Acidophilus ( Florajen 3)Pt's Own Med 1 each PO BEDTIME [facility] Last Admin: 03/18/17 21:55 Dose: 1 each Patient Own Medication (Ptom) 1 each PO DAILY [facility] Polyethylene Glycol (Miralax) 17 gm PO DAILY PRN PRN Reason: Constipation Tamsulosin HCl (Flomax) 0.4 mg PO BEDTIME [facility] Last Admin: 03/18/17 21:53 Dose: 0.4 mg Discontinued Medications Betamethasone Dipropionate (Diprosone 0.05% Crm) 0 gm TOP BID [facility] Last Admin: 03/12/17 09:25 Dose: Not Given Ciprofloxacin (Ciprofloxacin Hcl) 500 mg PO BID [facility] Last Admin: 03/12/17 09:22 Dose: 500 mg Doxazosin Mesylate (Cardura) 8 mg PO DAILY [facility] Last Admin: 03/10/17 10:19 Dose: Not Given Heparin Sodium (Porcine) (Heparin Sodium) 5,000 units SUBCUT Q8HR [facility] Last Admin: 03/14/17 06:49 Dose: Not Given Hydrochlorothiazide (Hydrochlorothiazide) 25 mg PO DAILY [facility] Last Admin: 03/08/17 09:39 Dose: 25 mg Sodium Chloride (Normal Saline) 500 mls @ 250 mls/hr IV ASDIRECTED [facility] Stop: 03/08/17 21:29 Last Admin: 03/08/17 19:50 Dose: 125 mls/hr Insulin Aspart (Novolog) 0 unit SUBCUT QID [facility] PRN Reason: Protocol Last Admin: 03/08/17 22:15 Dose: Not Given Insulin Aspart (Novolog) 0 unit SUBCUT QIDACANDBED [facility] PRN Reason: Protocol Last Admin: 03/12/17 17:55 Dose: Not Given Insulin Aspart (Novolog) 0 unit SUBCUT BID [facility] PRN Reason: Protocol Last Admin: 03/14/17 20:58 Dose: Not Given Losartan Potassium (Cozaar) 100 mg PO DAILY [facility] Last Admin: 03/10/17 10:19 Dose: Not Given Losartan Potassium (Cozaar) 50 mg PO DAILY [facility] Losartan Potassium (Cozaar) 50 mg PO DAILY [facility] Last Admin: 03/12/17 09:25 Dose: Not Given Met[facility] ([facility]uc[facility]) [facility] Last Admin: 03/12/17 09:22 Dose: 500 mg Metoprolol Tartrate (Lopressor) 50 mg PO BID [facility] Last Admin: 03/10/17 10:20 Dose: Not Given Metoprolol Tartrate (Lopressor) 50 mg PO BID [facility] Last Admin: 03/13/17 21:30 Dose: Not Given Non-Formulary Medication (Hydrocortisone Valerate [Hydrocortisone Valerate 0.2% Crm]) 1 applic TOP BID PRN PRN Reason: Itching Lactobacillus Acidophilus ( Florajen 3)Pt's Own Med 1 each PO DAILY [facility] Last Admin: 03/07/17 15:44 Dose: Not Given Silver Sulfadiazine (Silvadene 1% Cream 50 Gm) 0 gm TOP DAILY [facility] Last Admin: 03/09/17 10:26 Dose: Not Given - Exam General: Alert, Oriented Neck: Supple Lungs: Clear to Auscultation, Normal Respiratory Effort Cardiovascular: Regular Rate, Regular Rhythm Extremities: Other (s/p LE amputation let side ) Skin: Warm, Dry - Problem List & Annotations (1) CHASITY (acute kidney injury) SNOMED Code(s): 73141999 Code(s): N17.9 - ACUTE KIDNEY FAILURE, UNSPECIFIED Status: Acute Current Visit: Yes (2) Amputated left leg SNOMED Code(s): 935442703 Code(s): Z89.612 - ACQUIRED ABSENCE OF LEFT LEG ABOVE KNEE Status: Acute Current Visit: Yes (3) Diabetes SNOMED Code(s): 06707574 Code(s): E11.9 - TYPE 2 DIABETES MELLITUS WITHOUT COMPLICATIONS Status: Acute Current Visit: Yes - Problem List Review Problem List Initiated/Reviewed/Updated: Yes - My Orders Last 24 Hours: My Active Orders 03/18/17 19:04 Urinary Catheter Assessment [RC] ASDIRECTED 03/18/17 19:15 Pandey Catheter Insertion [Insert Urinary Catheter] [OM.PC] Q24H 03/20/17 05:15 BASIC METABOLIC PANEL,BMP [CHEM] AM CBC WITH AUTO DIFF [HEME] AM 03/20/17 09:00 Patient's Own Medication [Ptom] 1 each PO DAILY - Plan Plan:: Assessment and plan: #. Ischemic left foot. The patient initially had amputation of the left toes but due to poor wound healing he underwent left below knee amputation wound is healing well #. Diabetes mellitus2 due to renal failure stopped metformin follow BS use ISScale as needed #. Hypertension had episodes of hypotension with CHASITY stopped cozaar BP is improved continue metoprolol with holding parameters #. CHASITY with h/o Chronic kidney disease stage III Baseline creatinine has been about 1.4-1.5 stop cozaar improved BP recheck Cr in AM has good uo will follow urinary retention failed Pandey removal, replaced pandey cath postponed Urology appt re: difficulty with transfers #. Peripheral artery disease Procedures on aspirin Plavix and statin #. leukocytosis with Possible urinary tract infection was treated with cipro stop cipro check CBC in AM
[2017-03-19] MEDS: Tamsulosin 0.4 MG Cap.ER PO SCH (20:40)
[2017-03-19] MEDS: [UNRECOGNIZED DRUG - OTHER] PO SCH (21:13)
[2017-03-20] MEDS: oxyCODONE ER 20 MG TAB.ER PO SCH ×3 (06:10→21:46)
[2017-03-20] MEDS: Pantoprazole 40 MG Tab.CR PO SCH (06:11)
[2017-03-20] MEDS: Gabapentin 100 MG Cap PO SCH ×3 (08:42→20:52)
[2017-03-20] MEDS: Doxazosin 2 MG Tab PO SCH (08:42)
[2017-03-20] MEDS: Finasteride 5 MG Tab PO SCH (08:42)
[2017-03-20] MEDS: Docusate Sodium 100 MG Cap PO SCH ×2 (08:42→20:52)
[2017-03-20] MEDS: Clopidogrel 75 MG Tab PO SCH (08:42)
[2017-03-20] MEDS: Aspirin 81 MG Tab.EC PO SCH (08:42)
[2017-03-20] MEDS: Metoprolol Tartrate 25 MG Tab PO SCH ×2 (08:43→20:52)
[2017-03-20] MEDS: Metoclopramide 10 MG Tab PO SCH ×3 (08:43→17:11)
[2017-03-20] MEDS: PRESERVISION PO SCH (08:44)
[2017-03-20] MEDS: Insulin Aspart 100 Units/ML 3 ML Pen SUBCUT SCH ×4 (08:45→21:44)
--- NOTE | 2017-03-20 13:02 | PCM.SN ---
- Free Text/Narrative Note: continued leukocytosis is noted finished cipro for uti will get BC, UA Cx, hold further abx now
[2017-03-20] MEDS: Acetaminophen 325 MG Tab PO PRN (17:11)
[2017-03-20] MEDS: Tamsulosin 0.4 MG Cap.ER PO SCH (20:52)
[2017-03-20] MEDS: [UNRECOGNIZED DRUG - OTHER] PO SCH (21:46)
[2017-03-21] MEDS: Pantoprazole 40 MG Tab.CR PO SCH (05:29)
[2017-03-21] MEDS: oxyCODONE ER 20 MG TAB.ER PO SCH ×3 (05:29→21:47)
[2017-03-21] MEDS: Docusate Sodium 100 MG Cap PO SCH ×2 (09:28→21:48)
[2017-03-21] MEDS: Metoclopramide 10 MG Tab PO SCH ×3 (09:29→17:13)
[2017-03-21] MEDS: Finasteride 5 MG Tab PO SCH (09:29)
[2017-03-21] MEDS: Gabapentin 100 MG Cap PO SCH ×3 (09:29→21:49)
[2017-03-21] MEDS: Doxazosin 2 MG Tab PO SCH (09:29)
[2017-03-21] MEDS: Aspirin 81 MG Tab.EC PO SCH (09:29)
[2017-03-21] MEDS: Clopidogrel 75 MG Tab PO SCH (09:30)
[2017-03-21] MEDS: Metoprolol Tartrate 25 MG Tab PO SCH ×2 (09:30→21:54)
[2017-03-21] MEDS: Insulin Aspart 100 Units/ML 3 ML Pen SUBCUT SCH ×4 (09:32→22:03)
[2017-03-21] MEDS: PRESERVISION PO SCH (09:45)
[2017-03-21] MEDS: Magnesium Hydroxide 400 MG/5 ML Susp 30 ML Cup PO PRN (21:46)
[2017-03-21] MEDS: [UNRECOGNIZED DRUG - OTHER] PO SCH (21:46)
[2017-03-21] MEDS: Tamsulosin 0.4 MG Cap.ER PO SCH (21:49)
[2017-03-22] MEDS: Pantoprazole 40 MG Tab.CR PO SCH (05:13)
[2017-03-22] MEDS: oxyCODONE ER 20 MG TAB.ER PO SCH ×3 (05:13→21:39)
[2017-03-22] MEDS: Docusate Sodium 100 MG Cap PO SCH ×2 (08:45→21:03)
[2017-03-22] MEDS: Doxazosin 2 MG Tab PO SCH (08:45)
[2017-03-22] MEDS: Metoclopramide 10 MG Tab PO SCH ×3 (08:45→18:05)
[2017-03-22] MEDS: Gabapentin 100 MG Cap PO SCH ×3 (08:46→21:03)
[2017-03-22] MEDS: Clopidogrel 75 MG Tab PO SCH (08:46)
[2017-03-22] MEDS: Finasteride 5 MG Tab PO SCH (08:46)
[2017-03-22] MEDS: Aspirin 81 MG Tab.EC PO SCH (08:46)
[2017-03-22] MEDS: PRESERVISION PO SCH (08:51)
[2017-03-22] MEDS: Insulin Aspart 100 Units/ML 3 ML Pen SUBCUT SCH ×4 (08:55→21:10)
[2017-03-22] MEDS: Metoprolol Tartrate 25 MG Tab PO SCH ×2 (08:58→21:03)
[2017-03-22] MEDS: Tamsulosin 0.4 MG Cap.ER PO SCH (21:03)
[2017-03-22] MEDS: [UNRECOGNIZED DRUG - OTHER] PO SCH (21:05)
[2017-03-23] MEDS: Pantoprazole 40 MG Tab.CR PO SCH (06:16)
[2017-03-23] MEDS: oxyCODONE ER 20 MG TAB.ER PO SCH ×3 (06:16→21:50)
[2017-03-23] MEDS: Insulin Aspart 100 Units/ML 3 ML Pen SUBCUT SCH ×4 (08:24→21:50)
[2017-03-23] MEDS: Metoclopramide 10 MG Tab PO SCH ×3 (08:27→16:24)
[2017-03-23] MEDS: Clopidogrel 75 MG Tab PO SCH (10:41)
[2017-03-23] MEDS: Docusate Sodium 100 MG Cap PO SCH ×2 (10:41→20:41)
[2017-03-23] MEDS: Gabapentin 100 MG Cap PO SCH ×3 (10:42→20:41)
[2017-03-23] MEDS: Metoprolol Tartrate 25 MG Tab PO SCH ×2 (10:42→20:41)
[2017-03-23] MEDS: Aspirin 81 MG Tab.EC PO SCH (10:42)
[2017-03-23] MEDS: Finasteride 5 MG Tab PO SCH (10:42)
[2017-03-23] MEDS: Doxazosin 2 MG Tab PO SCH (10:43)
[2017-03-23] MEDS: PRESERVISION PO SCH (11:07)
[2017-03-23] MEDS: Polyethylene Glycol 3350 Powder 17 GM Packet PO PRN (12:47)
[2017-03-23] MEDS: Tamsulosin 0.4 MG Cap.ER PO SCH (20:41)
[2017-03-23] MEDS: [UNRECOGNIZED DRUG - OTHER] PO SCH (20:41)
[2017-03-24] MEDS: oxyCODONE ER 20 MG TAB.ER PO SCH ×3 (06:00→22:16)
[2017-03-24] MEDS: Pantoprazole 40 MG Tab.CR PO SCH (06:00)
[2017-03-24] MEDS: Metoclopramide 10 MG Tab PO SCH ×3 (09:20→16:34)
[2017-03-24] MEDS: Doxazosin 2 MG Tab PO SCH (09:20)
[2017-03-24] MEDS: Clopidogrel 75 MG Tab PO SCH (09:25)
[2017-03-24] MEDS: Aspirin 81 MG Tab.EC PO SCH (09:26)
[2017-03-24] MEDS: Docusate Sodium 100 MG Cap PO SCH ×2 (09:26→22:16)
[2017-03-24] MEDS: Gabapentin 100 MG Cap PO SCH ×3 (09:26→22:16)
[2017-03-24] MEDS: Finasteride 5 MG Tab PO SCH (09:26)
[2017-03-24] MEDS: Metoprolol Tartrate 25 MG Tab PO SCH ×2 (09:27→22:14)
[2017-03-24] MEDS: PRESERVISION PO SCH (09:35)
[2017-03-24] MEDS: Insulin Aspart 100 Units/ML 3 ML Pen SUBCUT SCH ×4 (09:36→22:15)
[2017-03-24] MEDS ORDERED: Bisacodyl 10 MG Supp RECTAL PRN (12:39)
[2017-03-24] MEDS: Tamsulosin 0.4 MG Cap.ER PO SCH (22:16)
[2017-03-24] MEDS: [UNRECOGNIZED DRUG - OTHER] PO SCH (22:19)
[2017-03-25] MEDS: oxyCODONE ER 20 MG TAB.ER PO SCH ×3 (05:58→21:07)
[2017-03-25] MEDS: Pantoprazole 40 MG Tab.CR PO SCH (05:59)
[2017-03-25] MEDS: Metoclopramide 10 MG Tab PO SCH ×3 (07:52→16:52)
[2017-03-25] MEDS: Metoprolol Tartrate 25 MG Tab PO SCH ×2 (08:38→21:06)
[2017-03-25] MEDS: Gabapentin 100 MG Cap PO SCH ×3 (08:38→21:07)
[2017-03-25] MEDS: Docusate Sodium 100 MG Cap PO SCH ×2 (08:38→21:05)
[2017-03-25] MEDS: Doxazosin 2 MG Tab PO SCH (08:38)
[2017-03-25] MEDS: Clopidogrel 75 MG Tab PO SCH (08:38)
[2017-03-25] MEDS: Aspirin 81 MG Tab.EC PO SCH (08:38)
[2017-03-25] MEDS: Finasteride 5 MG Tab PO SCH (08:39)
[2017-03-25] MEDS: Insulin Aspart 100 Units/ML 3 ML Pen SUBCUT SCH ×4 (08:39→21:09)
[2017-03-25] MEDS: PRESERVISION PO SCH (08:39)
[2017-03-25] MEDS: Tamsulosin 0.4 MG Cap.ER PO SCH (21:06)
[2017-03-25] MEDS: [UNRECOGNIZED DRUG - OTHER] PO SCH (21:16)
[2017-03-26] MEDS: Pantoprazole 40 MG Tab.CR PO SCH (05:31)
[2017-03-26] MEDS: oxyCODONE ER 20 MG TAB.ER PO SCH ×3 (05:31→21:14)
[2017-03-26] MEDS: Clopidogrel 75 MG Tab PO SCH (08:47)
[2017-03-26] MEDS: PRESERVISION PO SCH (08:47)
[2017-03-26] MEDS: Docusate Sodium 100 MG Cap PO SCH ×2 (08:47→21:13)
[2017-03-26] MEDS: Finasteride 5 MG Tab PO SCH (08:48)
[2017-03-26] MEDS: Metoclopramide 10 MG Tab PO SCH ×3 (08:48→16:48)
[2017-03-26] MEDS: Doxazosin 2 MG Tab PO SCH (08:48)
[2017-03-26] MEDS: Metoprolol Tartrate 25 MG Tab PO SCH ×2 (08:49→21:12)
[2017-03-26] MEDS: Gabapentin 100 MG Cap PO SCH ×3 (08:49→21:12)
[2017-03-26] MEDS: Aspirin 81 MG Tab.EC PO SCH (08:50)
[2017-03-26] MEDS: Insulin Aspart 100 Units/ML 3 ML Pen SUBCUT SCH ×4 (08:50→21:44)
[2017-03-26] MEDS: Tamsulosin 0.4 MG Cap.ER PO SCH (21:13)
[2017-03-26] MEDS: [UNRECOGNIZED DRUG - OTHER] PO SCH (21:13)
[2017-03-26] MEDS: Acetaminophen/oxyCODONE 325-5 MG Tab PO PRN (21:48)
[2017-03-27] MEDS: Pantoprazole 40 MG Tab.CR PO SCH (05:53)
[2017-03-27] MEDS: oxyCODONE ER 20 MG TAB.ER PO SCH ×3 (05:53→21:01)
--- NOTE | 2017-03-27 07:36 | PN ---
DATE: 03/22/2017 SUBJECTIVE: Mr. Crenshaw is an 86-year-old gentleman with past medical history of type 2 diabetes, hypertension, chronic kidney disease, dyslipidemia, and peripheral artery disease. He developed a necrotic left foot ulcer and underwent amputation of the toes of the left foot. Unfortunately, he went on to have poor wound healing and this resulted in a left BKA. He also had large volume urinary retention and was treated for UTI with Cipro. He is in swing bed to continue with physical and occupational therapy for recovery from surgery while family considers their options for post hospital care. They are considering senior care placement. Review of his clinical data shows good oral intake. He is voiding and moving his bowels. He is tolerating his diet. Vital signs are stable and he remains afebrile. His medications are reviewed and no changes are made. He saw Dr. Ro today in followup and no changes were made by Dr. Ro in his renal care. PHYSICAL EXAMINATION: General: He was seated quietly in his wheelchair. He seems rather sad and somewhat depressed, but was in no acute distress. He denied any new issues or concerns. He denied any chest pain or shortness of breath. No abdominal pain. No calf or leg pain. Vital Signs: Blood pressure 112/41, pulse 66, respiratory rate 20, and oxygen saturation 95% on room air. He is afebrile. HEENT: Unremarkable. ENT was clear. Chest: Showed clear, but diminished bilateral breath sounds. Abdomen: Benign. Extremities: Showed the immobilizer to be in place on the left side with the knee fully extended. The right leg is unremarkable. Neurologic: He is intact. ASSESSMENT AND PLAN: We will continue the present management. He will continue to work with Physical and Occupational Therapy while family proceeds with discharge plans. No other changes are made today. [facility] /[id number] ISAAK
--- NOTE | 2017-03-27 08:15 | PN ---
DATE: 03/26/2017 INTERVAL HISTORY: Mr. Crenshaw is an 86-year-old gentleman with a history of peripheral vascular disease. He developed a nonhealing ulcer on the left foot. This resulted first in amputation of the toes, but due to poor wound healing, he eventually underwent left BKA. He is in swing bed for ongoing occupational and physical therapy related to generalized weakness and the amputation. Other past medical history includes type 2 diabetes, chronic kidney disease, hypertension, dyslipidemia, and peripheral artery disease. He was treated for recent UTI after he was found to have large volume urinary retention. He continues to work on daily basis with Physical and Occupational Therapy. He offers no new concerns or complaints. Nursing staff, however, has discovered that there appears to be a pressure sore on the anterior surface of the left lower extremity under the knee immobilizer. This will be examined carefully today. PHYSICAL EXAMINATION: General: He is seated in his wheelchair. He actually looks somewhat better. He seems somewhat less depressed and participates more actively in the visit. He denies any new problems or concerns. When we asked about what his discharge plan was, he was vague on it. Apparently, the family has decided on [facility] and are awaiting a bed. It is unclear if he really understands that this is going to happen. I did speak with the physical and occupational therapist. They are struggling with Mr. Crenshaw's general debility and weakness, and at this point, they really are not sure if he will ever be able to have or use a prosthetic device. Vital Signs: Blood pressure is 118/46, pulse 76, respiratory rate 20, oxygen saturation 99% on room air, and he is afebrile. ENT: Clear. Chest: Showed clear bilateral breath sounds. Heart: Showed regular rate and rhythm. Abdomen: Benign. Extremities: Examination of the right lower extremity was unremarkable. The left lower extremity was examined. The knee immobilizer was opened, and the dressing on the stump taken down. The suture line is healing well. Campus remain in place. There is no evidence of dehiscence, drainage, or redness. On the anterior surface of the left knee, there is an approximately 2 x 2 cm stage 2 skin breakdown and may be from the pressure of the knee immobilizer. On the underside of the leg, the skin was completely intact without any redness or breakdown. ASSESSMENT AND PLAN: The ulceration was cleaned with normal saline and patted dry and was left open to air for about an hour. Wound care instructions were written to open the immobilizer twice a day, to gently clean and pat it dry, and to allow it to remain open to air for an hour and then to place Telfa and either Amrik or Kerlix in a thin layer and to avoid tape on the skin and then to replace the immobilizer taking care that the underlying bandage is not too bulky, it causes more pressure. I did put a call out to his surgeon, Dr. Warren, of Vascular Medicine in [place]. I wanted to let him know about the ulceration. His return call is still pending. Repeat lab work was ordered for tomorrow including hemoglobin, hematocrit, BUN, and creatinine. This will be followed up by Dr. Chirinos. No other changes are made in his care today. Family is awaiting availability of a bed at the [facility]. [facility] /[id number] ISAAK
[2017-03-27] MEDS: Finasteride 5 MG Tab PO SCH (10:17)
[2017-03-27] MEDS: Insulin Aspart 100 Units/ML 3 ML Pen SUBCUT SCH ×4 (10:18→21:09)
[2017-03-27] MEDS: Docusate Sodium 100 MG Cap PO SCH ×2 (10:18→20:57)
[2017-03-27] MEDS: Metoclopramide 10 MG Tab PO SCH ×3 (10:20→16:59)
[2017-03-27] MEDS: Aspirin 81 MG Tab.EC PO SCH (10:20)
[2017-03-27] MEDS: Gabapentin 100 MG Cap PO SCH ×3 (10:20→20:57)
[2017-03-27] MEDS: Clopidogrel 75 MG Tab PO SCH (10:20)
[2017-03-27] MEDS: Metoprolol Tartrate 25 MG Tab PO SCH ×2 (10:20→20:58)
[2017-03-27] MEDS: Doxazosin 2 MG Tab PO SCH (10:22)
[2017-03-27] MEDS: PRESERVISION PO SCH (10:24)
[2017-03-27] MEDS: Magnesium Hydroxide 400 MG/5 ML Susp 30 ML Cup PO PRN (12:04)
[2017-03-27] MEDS: Tamsulosin 0.4 MG Cap.ER PO SCH (20:58)
[2017-03-27] MEDS: [UNRECOGNIZED DRUG - OTHER] PO SCH (20:58)
[2017-03-27] MEDS: Acetaminophen/oxyCODONE 325-5 MG Tab PO PRN (21:11)
[2017-03-28] MEDS: Pantoprazole 40 MG Tab.CR PO SCH (05:37)
[2017-03-28] MEDS: oxyCODONE ER 20 MG TAB.ER PO SCH ×3 (05:37→21:26)
[2017-03-28] MEDS: Docusate Sodium 100 MG Cap PO SCH ×2 (08:54→21:25)
[2017-03-28] MEDS: Metoprolol Tartrate 25 MG Tab PO SCH ×2 (08:54→21:25)
[2017-03-28] MEDS: Gabapentin 100 MG Cap PO SCH ×3 (08:54→21:26)
[2017-03-28] MEDS: Finasteride 5 MG Tab PO SCH (08:55)
[2017-03-28] MEDS: Clopidogrel 75 MG Tab PO SCH (08:55)
[2017-03-28] MEDS: Metoclopramide 10 MG Tab PO SCH ×3 (08:55→17:12)
[2017-03-28] MEDS: Doxazosin 2 MG Tab PO SCH (08:56)
[2017-03-28] MEDS: Aspirin 81 MG Tab.EC PO SCH (08:56)
[2017-03-28] MEDS: Polyethylene Glycol 3350 Powder 17 GM Packet PO PRN (08:56)
[2017-03-28] MEDS: PRESERVISION PO SCH (08:57)
[2017-03-28] MEDS: Insulin Aspart 100 Units/ML 3 ML Pen SUBCUT SCH ×4 (09:09→21:27)
[2017-03-28] MEDS: Tamsulosin 0.4 MG Cap.ER PO SCH (21:25)
[2017-03-28] MEDS: Acetaminophen/oxyCODONE 325-5 MG Tab PO PRN (21:31)
[2017-03-28] MEDS: [UNRECOGNIZED DRUG - OTHER] PO SCH (21:32)
[2017-03-29] MEDS: Pantoprazole 40 MG Tab.CR PO SCH (06:11)
[2017-03-29] MEDS: oxyCODONE ER 20 MG TAB.ER PO SCH ×3 (06:11→22:30)
[2017-03-29] MEDS: Acetaminophen/oxyCODONE 325-5 MG Tab PO PRN ×2 (06:50→23:37)
[2017-03-29] MEDS: Gabapentin 100 MG Cap PO SCH ×3 (09:47→22:25)
[2017-03-29] MEDS: Docusate Sodium 100 MG Cap PO SCH ×2 (09:47→22:27)
[2017-03-29] MEDS: Metoclopramide 10 MG Tab PO SCH ×3 (09:48→17:11)
[2017-03-29] MEDS: Aspirin 81 MG Tab.EC PO SCH (09:48)
[2017-03-29] MEDS: Finasteride 5 MG Tab PO SCH (09:49)
[2017-03-29] MEDS: Clopidogrel 75 MG Tab PO SCH (09:49)
[2017-03-29] MEDS: Polyethylene Glycol 3350 Powder 17 GM Packet PO PRN (09:50)
[2017-03-29] MEDS: PRESERVISION PO SCH (09:52)
[2017-03-29] MEDS: Insulin Aspart 100 Units/ML 3 ML Pen SUBCUT SCH ×4 (09:58→22:27)
[2017-03-29] MEDS: Doxazosin 2 MG Tab PO SCH (09:58)
[2017-03-29] MEDS: Metoprolol Tartrate 25 MG Tab PO SCH ×2 (09:59→22:25)
[2017-03-29] MEDS ORDERED: Lidocaine 2% Jelly 5 ML Tube MUCMEM SCH (21:00)
[2017-03-29] MEDS: Tamsulosin 0.4 MG Cap.ER PO SCH (22:26)
[2017-03-29] MEDS: [UNRECOGNIZED DRUG - OTHER] PO SCH (22:28)
[2017-03-29] MEDS: Lidocaine 2% Jelly 5 ML Tube TOP SCH (22:29)
[2017-03-30] MEDS: oxyCODONE ER 20 MG TAB.ER PO SCH ×3 (06:41→21:32)
[2017-03-30] MEDS: Pantoprazole 40 MG Tab.CR PO SCH (06:41)
[2017-03-30] MEDS: Docusate Sodium 100 MG Cap PO SCH ×2 (09:24→21:32)
[2017-03-30] MEDS: PRESERVISION PO SCH (09:24)
[2017-03-30] MEDS: Metoprolol Tartrate 25 MG Tab PO SCH ×2 (09:24→21:32)
[2017-03-30] MEDS: Metoclopramide 10 MG Tab PO SCH ×3 (09:24→16:41)
[2017-03-30] MEDS: Gabapentin 100 MG Cap PO SCH ×3 (09:24→21:32)
[2017-03-30] MEDS: Doxazosin 2 MG Tab PO SCH (09:25)
[2017-03-30] MEDS: Clopidogrel 75 MG Tab PO SCH (09:25)
[2017-03-30] MEDS: Aspirin 81 MG Tab.EC PO SCH (09:25)
[2017-03-30] MEDS: Finasteride 5 MG Tab PO SCH (09:25)
[2017-03-30] MEDS: Lidocaine 2% Jelly 5 ML Tube TOP SCH ×2 (09:28→21:33)
[2017-03-30] MEDS: Insulin Aspart 100 Units/ML 3 ML Pen SUBCUT SCH ×4 (09:31→21:33)
[2017-03-30] MEDS: Acetaminophen 325 MG Tab PO PRN (13:03)
[2017-03-30] MEDS: [UNRECOGNIZED DRUG - OTHER] PO SCH (21:31)
[2017-03-30] MEDS: Tamsulosin 0.4 MG Cap.ER PO SCH (21:32)
[2017-03-31] MEDS: oxyCODONE ER 20 MG TAB.ER PO SCH ×3 (06:38→21:26)
[2017-03-31] MEDS: Pantoprazole 40 MG Tab.CR PO SCH (06:38)
[2017-03-31] MEDS: Lidocaine 2% Jelly 5 ML Tube TOP SCH ×2 (08:57→21:26)
[2017-03-31] MEDS: Gabapentin 100 MG Cap PO SCH ×3 (08:57→21:26)
[2017-03-31] MEDS: Metoclopramide 10 MG Tab PO SCH ×3 (08:57→17:26)
[2017-03-31] MEDS: Aspirin 81 MG Tab.EC PO SCH (08:57)
[2017-03-31] MEDS: Docusate Sodium 100 MG Cap PO SCH ×2 (08:57→21:25)
[2017-03-31] MEDS: Clopidogrel 75 MG Tab PO SCH (08:58)
[2017-03-31] MEDS: Acetaminophen 325 MG Tab PO PRN ×2 (08:58→14:30)
[2017-03-31] MEDS: Finasteride 5 MG Tab PO SCH (08:58)
[2017-03-31] MEDS: Polyethylene Glycol 3350 Powder 17 GM Packet PO PRN (08:58)
[2017-03-31] MEDS: PRESERVISION PO SCH (09:02)
[2017-03-31] MEDS: Insulin Aspart 100 Units/ML 3 ML Pen SUBCUT SCH ×4 (09:03→21:26)
[2017-03-31] MEDS: Doxazosin 2 MG Tab PO SCH (09:10)
[2017-03-31] MEDS: Metoprolol Tartrate 25 MG Tab PO SCH ×2 (09:10→21:25)
[2017-03-31] MEDS: Acetaminophen/oxyCODONE 325-5 MG Tab PO PRN (19:44)
[2017-03-31] MEDS: Tamsulosin 0.4 MG Cap.ER PO SCH (21:26)
[2017-03-31] MEDS: [UNRECOGNIZED DRUG - OTHER] PO SCH (21:26)
[2017-04-01] MEDS: oxyCODONE ER 20 MG TAB.ER PO SCH ×2 (06:07→13:29)
[2017-04-01] MEDS: Pantoprazole 40 MG Tab.CR PO SCH (06:07)
[2017-04-01 07:26] VITALS: BP 121/43
[2017-04-01] MEDS: Finasteride 5 MG Tab PO SCH (08:41)
[2017-04-01] MEDS: Doxazosin 2 MG Tab PO SCH (08:41)
[2017-04-01] MEDS: Aspirin 81 MG Tab.EC PO SCH (08:41)
[2017-04-01] MEDS: Docusate Sodium 100 MG Cap PO SCH (08:41)
[2017-04-01] MEDS: Acetaminophen 325 MG Tab PO PRN ×2 (08:42→13:29)
[2017-04-01] MEDS: Clopidogrel 75 MG Tab PO SCH (08:42)
[2017-04-01] MEDS: Metoprolol Tartrate 25 MG Tab PO SCH (08:42)
[2017-04-01] MEDS: Gabapentin 100 MG Cap PO SCH ×2 (08:42→13:29)
[2017-04-01] MEDS: Metoclopramide 10 MG Tab PO SCH ×2 (08:42→10:45)
[2017-04-01] MEDS: PRESERVISION PO SCH (08:45)
[2017-04-01] MEDS: Lidocaine 2% Jelly 5 ML Tube TOP SCH (08:45)
[2017-04-01] MEDS: Insulin Aspart 100 Units/ML 3 ML Pen SUBCUT SCH ×2 (08:46→13:30)
--- NOTE | 2017-04-02 14:20 | DISCH ---
ADMITTING DIAGNOSES: 1. Status post left below-knee amputation. 2. Chronic anemia. 3. Diabetes mellitus. 4. Chronic kidney disease. 5. Urinary retention. 6. Hypertension. BRIEF HISTORY AND PHYSICAL EXAMINATION: The patient is an 86-year-old male, who was admitted under swing bed on 03/05/2017 after he underwent below-knee amputation on the left leg. He has a past medical history of peripheral artery disease that has led to amputation of the first, second ray amputation, and recently presented with a nonhealing wound to the left foot. During his stay, he was noted to have urinary retention and UTI, was started on antibiotic. He was also started on tamsulosin. On admission in the swing bed, vital signs documented show blood pressure 132/49, heart rate of 72 beats per minute, respirations 22 breaths per minute, oxygen saturation 98%, temperature 36.6. Workup done during the hospital course. There is a CBC that was done on 03/11/2017, showed hemoglobin 9.3, WBC 13.1, platelets of 432. BMP showed creatinine of 2.2, and sodium of 134. The latest creatinine showed 1.8 on 03/28/2017, and the repeat hemoglobin is 9.3. HOSPITAL COURSE: The patient was admitted under swing bed. Given the recent surgery, wound dressing was done daily. Physical therapy consulted. The patient has completed his antibiotic for the UTI. Indwelling Jaffe catheter continued and care was done. Renal function was followed and this was starting to get better. Glucose checks done given his diabetes and insulin sliding scale was started as well. The rest of his medications were continued. Able to follow up with Vascular. Patient was then to be discharged to snf. Vital signs on discharge showed blood pressure 121/43, heart rate of 72 beats per minute, respirations 20 breaths per minute, oxygen saturation 96, temperature 37.0. Patient will be discharged to [facility]. The patient to follow up primary care within 1 to 2 weeks from discharge. Some medications, especially hypertensives were on hold, and to have blood pressure checked regularly at home, should inform PCP if any concerns. [facility] /[id number]
== END 2017-04-01 13:40 | disposition home or self-care (01) | DRG 300 ==
LOC: DL.MS 15:23 → UNDOADMIN 15:23 → DL.MS 15:38
PROVIDERS: ADMIT Hospitalist; ATTEND Hospitalist
DX: E11.51 Type 2 diabetes mellitus with diabetic peripheral angiopathy without gangrene (principal); N39.0 Urinary tract infection, site not specified; L97.221 Non-pressure chronic ulcer of left calf limited to breakdown of skin; N17.9 Acute kidney failure, unspecified; R33.0 Drug induced retention of urine; T40.2X5A Adverse effect of other opioids, initial encounter; E11.22 Type 2 diabetes mellitus with diabetic chronic kidney disease; I12.9 Hypertensive chronic kidney disease with stage 1 through stage 4 chronic kidney disease, or unspecified chronic kidney disease; N18.3 Chronic kidney disease, stage 3 (moderate); Y92.230 Patient room in hospital as the place of occurrence of the external cause; Z89.512 Acquired absence of left leg below knee; D72.829 Elevated white blood cell count, unspecified; Z79.82 Long term (current) use of aspirin; Z79.02 Long term (current) use of antithrombotics/antiplatelets; Z79.84 Long term (current) use of oral hypoglycemic drugs; Z79.899 Other long term (current) drug therapy
CPT/HCPCS: 36415; 51702; 80048; 81001; 82040; 82565; 82962; 84100; 84520; 85014; 85018; 85025; 85610; 87040; 87086; 97110-GO; 97110-GP; 97140-GP; 97162-GP; 97166-GO; 97530-GO; 97530-GP; A9270-GY; J1644; J1815-GY; J7040

== ENCOUNTER 2017-04-08 13:03 | Inpatient (IN) | payer MEDICARE, BC ==
[2017-04-08] MEDS ORDERED: Sodium Chloride 0.9% 10 ML Syringe FLUSH PRN (14:31)
[2017-04-08] MEDS ORDERED: Ondansetron 4 MG Tab.DIS PO PRN (14:31)
[2017-04-08] MEDS ORDERED: Zolpidem 5 MG Tab PO PRN (14:31)
[2017-04-08] MEDS ORDERED: Acetaminophen 325 MG Tab PO PRN (14:31)
[2017-04-08] MEDS ORDERED: Promethazine 25 MG/ML SDV IM PRN (14:31)
[2017-04-08] MEDS ORDERED: Polyethylene Glycol 3350 Powder 17 GM Packet PO PRN (14:36)
[2017-04-08] MEDS ORDERED: Magnesium Hydroxide 400 MG/5 ML Susp 30 ML Cup PO PRN (14:36)
[2017-04-08] MEDS ORDERED: Acetaminophen/oxyCODONE 325-5 MG Tab PO PRN (14:36)
[2017-04-08] MEDS ORDERED: LORazepam 0.5 MG Tab PO PRN (14:36)
[2017-04-08] MEDS ORDERED: Menthol/Methyl Salicylate 85 GM Tube TOP PRN (14:36)
--- NOTE | 2017-04-08 14:52 | PCM.HP ---
H&P History of Present Illness - General Date of Service: 04/08/17 Admit Problem/Dx: Admission Diagnosis/Problem Admission Diagnosis/Problem Acute renal failure - History of Present Illness Initial Comments - Free Text/Narative: The patient is an 86-year-old gentleman who presented with nausea, vomiting. He has been having these symptoms for weeks. The nausea is worse when he smells or looks at food. This is associated with weight loss. 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 He was in swing bed later moved to a detention. He denies cough, fever, shortness of breath, chest pain, abdominal pain. No loose bowel movements. - Related Data Allergies/Adverse Reactions: Allergies Allergy/AdvReac Type Severity Reaction Status Date / Time amoxicillin Allergy Nausea and Verified 04/08/17 13:48 Vomiting cyclobenzaprine Allergy Cannot Verified 04/08/17 13:48 Remember Home Medications: Home Meds Acetaminophen [Tylenol Extra Strength] 2 tab PO TID PRN 02/18/17 [History] Aspirin [Halfprin] 1 tab PO DAILY 02/18/17 [History] Doxazosin Mesylate [Cardura] 1 tab PO DAILY 02/18/17 [History] Finasteride [Proscar] 1 tab PO DAILY 02/18/17 [History] Halobetasol Propionate [Ultravate] 1 applic TOP DAILY PRN 02/18/17 [History] LORazepam [Ativan] 0.5 mg PO BID PRN 02/18/17 [History] Silver Sulfadiazine [Silvadene 1% Cream 20 GM] 1 applic TOP DAILY 02/18/17 [ History] metFORMIN [Glucophage] 1 tab PO BID 02/18/17 [History] oxyCODONE HCl/Acetaminophen [Percocet 5-325 mg Tablet] 0.5 tab PO Q4HR PRN 02/18 [History] Clopidogrel [Plavix] 75 mg PO DAILY 02/21/17 [History] Lactobacillus Acidophilus/Fos [Acidophilus Probiotic Tablet] 1 each PO DAILY [History] oxyCODONE ER [OxyCONTIN] 20 mg PO Q8H 02/21/17 [History] Magnesium Hydroxide [Milk of Magnesia] 30 ml PO BID PRN 03/05/17 [History] Methyl Salicylate/Menth/Camph [Pain Relieving Rub Cream] 57 gm TP TID PRN [History] Polyethylene Glycol 3350 [MiraLAX] 17 gm PO DAILY PRN 03/05/17 [History] Tamsulosin HCl [Flomax] 0.4 mg PO BEDTIME 03/05/17 [History] Gabapentin [Neurontin] 100 mg PO TID #90 cap 04/01/17 [Rx] Metoprolol Tartrate [Lopressor] 25 mg PO BID #60 tablet 04/01/17 [Rx] Past Medical History HEENT History: Reports: Impaired Vision, Other (See Below) Other HEENT History: wears glasses Cardiovascular History: Reports: Hypertension Respiratory History: Reports: None Gastrointestinal History: Reports: Cholelithiasis, GERD Genitourinary History: Reports: BPH Musculoskeletal History: Reports: Arthritis Neurological History: Reports: None Psychiatric History: Reports: None Endocrine/Metabolic History: Reports: Diabetes, Type II Hematologic History: Reports: None Immunologic History: Reports: None Oncologic (Cancer) History: Reports: None Dermatologic History: Reports: Psoriasis - Infectious Disease History Infectious Disease History: Reports: None - Past Surgical History HEENT Surgical History: Reports: None Cardiovascular Surgical History: Reports: None Respiratory Surgical History: Reports: None GI Surgical History: Reports: Cholecystectomy Endocrine Surgical History: Reports: None Neurological Surgical History: Reports: Spinal Fusion Musculoskeletal Surgical History: Reports: Hip Replacement, Knee Replacement Oncologic Surgical History: Reports: None Dermatological Surgical History: Reports: None Social & Family History - Family History Family Medical History: Noncontributory - Tobacco Use Smoking Status *Q: Never Smoker Second Hand Smoke Exposure: No - Caffeine Use Caffeine Use: Reports: Coffee, Soda - Recreational Drug Use Recreational Drug Use: No H&P Review of Systems - Review of Systems: Review Of Systems: See Below General: Denies: Fever Pulmonary: Denies: Shortness of Breath Cardiovascular: Denies: Chest Pain Gastrointestinal: Reports: Anorexia. Denies: Abdominal Pain, Black Stool, Diarrhea Genitourinary: Reports: Other. Denies: Dysuria Exam - Exam Exam: See Below - Vital Signs Vital Signs: Last Vital Signs Temp 36.3 C 04/08/17 13:18 Pulse 66 04/08/17 13:18 Resp 20 04/08/17 13:18 BP 113/45 L 04/08/17 13:18 Pulse Ox 98 04/08/17 13:18 Weight: 76.566 kg - Exam General: Alert, Oriented Neck: Supple Lungs: Clear to Auscultation Cardiovascular: Regular Rate, Regular Rhythm GI/Abdominal Exam: Normal Bowel Sounds, Soft, Non-Tender Extremities: Other (left lower extremity AKA, stump without redness, no swelling , small area of erythema on pressure point of left gracia, r. 1st toe) Skin: Warm. No: Rash Neuro Extensive - Mental Status: Alert, Oriented x3 Psychiatric: Alert, Normal Affect, Normal Mood - Patient Data Lab Results Last 24 hrs: Laboratory studies were reviewed from [facility]: On 08 April white blood cell count was 10.5 hemoglobin 10.0 platelets 498 sodium 141 potassium 3.6B and 22 creatinine 1.9 albumin 2.4, sedimentation rate was 106 it was 112 about a month ago *Q Meaningful Use (ADM) - VTE *Q VTE Criteria *Q: - Stroke *Q Stroke Criteria *Q: - AMI *Q AMI Criteria *Q: - Problem List (1) Dehydration SNOMED Code(s): 80204620 ICD Code: E86.0 - DEHYDRATION Status: Acute Current Visit: Yes (2) Elevated sedimentation rate SNOMED Code(s): 775163620 ICD Code: R70.0 - ELEVATED ERYTHROCYTE SEDIMENTATION RATE Status: Acute Current Visit: Yes (3) CHASITY (acute kidney injury) SNOMED Code(s): 69468407 ICD Code: N17.9 - ACUTE KIDNEY FAILURE, UNSPECIFIED Status: Acute Current Visit: No (4) Amputated left leg SNOMED Code(s): 316289218 ICD Code: Z89.612 - ACQUIRED ABSENCE OF LEFT LEG ABOVE KNEE Status: Acute Current Visit: No (5) Diabetes SNOMED Code(s): 16389716 ICD Code: E11.9 - TYPE 2 DIABETES MELLITUS WITHOUT COMPLICATIONS Status: Acute Current Visit: No Problem List Initiated/Reviewed/Updated: Yes Orders Last 24hrs: Active Orders 24 hr Category Date Time Status Patient Status [ADT] Routine ADT 04/08/17 14:31 Ordered Antiembolic Devices [RC] PER UNIT ROUTINE Care 04/08/17 14:36 Ordered Oxygen Therapy [RC] PRN Care 04/08/17 14:31 Ordered Peripheral IV Care [RC] . DIRECTED Care 04/08/17 14:36 Ordered Up With Assistance [RC] ASDIRECTED Care 04/08/17 14:31 Ordered Vital Signs [RC] Q4H Care 04/08/17 14:31 Ordered Regular Diet [DIET] Diet 04/08/17 Dinner Ordered BASIC METABOLIC PANEL,BMP [CHEM] AM Lab 04/09/17 05:15 Ordered CBC WITH AUTO DIFF [HEME] AM Lab 04/09/17 05:15 Ordered CULTURE BLOOD [BC] Routine Lab 04/08/17 14:23 Ordered CULTURE BLOOD [BC] Routine Lab 04/08/17 14:23 Ordered CULTURE URINE [RM] Routine Lab 04/08/17 14:24 Uncollected UA W/MICROSCOPIC [URIN] Routine Lab 04/08/17 14:23 Uncollected Acetaminophen [Tylenol] Med 04/08/17 14:31 Ordered 650 mg PO Q4H PRN Acetaminophen/oxyCODONE [Percocet 325-5 MG] Med 04/08/17 14:36 Ordered 0.5 tab PO Q4HR PRN Aspirin [Halfprin] Med 04/09/17 09:00 Ordered 1 tab PO DAILY Clopidogrel [Plavix] Med 04/09/17 09:00 Ordered 75 mg PO DAILY Finasteride [Proscar] Med 04/09/17 09:00 Ordered 1 tab PO DAILY Heparin Sodium Med 04/08/17 22:00 Ordered 5,000 units SUBCUT Q8HR LORazepam [Ativan] Med 04/08/17 14:36 Ordered 0.5 mg PO BID PRN Lactobacillus Acidophilus/Fos [Acidophilus Probiotic Med 04/09/17 09:00 Ordered Tablet] 1 each PO DAILY Magnesium Hydroxide [Milk of Magnesia] Med 04/08/17 14:36 Ordered 30 ml PO BID PRN Methyl Salicylate/Menth/Camph [Pain Relieving Rub Cream Med 04/08/17 14:36 Ordered ] 57 gm TP TID PRN Metoprolol Tartrate [Lopressor] Med 04/08/17 21:00 Ordered 25 mg PO BID NS + KCl 20mEq/L [Normal Saline with 20 mEq KCl] 1,000 Med 04/08/17 14:30 Ordered ml IV ASDIRECTED Ondansetron [Zofran ODT] Med 04/08/17 14:31 Ordered 4 mg PO Q6H PRN Ondansetron [Zofran] Med 04/08/17 14:31 Ordered 4 mg IVPUSH Q6H PRN Polyethylene Glycol 3350 [MiraLAX] Med 04/08/17 14:36 Ordered 17 gm PO DAILY PRN Promethazine [Phenergan] Med 04/08/17 14:31 Ordered 6.25 mg IM Q6H PRN Sodium Chloride 0.9% [Saline Flush] Med 04/08/17 14:31 Ordered 10 ml FLUSH ASDIRECTED PRN Zolpidem [Ambien] Med 04/08/17 14:31 Ordered 5 mg PO BEDTIME PRN oxyCODONE ER [OxyCONTIN] Med 04/08/17 21:00 Ordered 20 mg PO BID Antiembolic Hose [OM.PC] Per Unit Routine Oth 04/08/17 14:34 Ordered Blood Culture x2 Reflex Set [OM.PC] Stat Oth 04/08/17 14:22 Ordered Peripheral IV Insertion Adult [OM.PC] Routine Oth 04/08/17 14:31 Ordered Resuscitation Status Routine Resus Stat 04/08/17 14:31 Ordered Medication Orders Acetaminophen (Tylenol) 650 mg PO Q4H PRN PRN Reason: Pain (Mild 1-3)/fever Aspirin (Halfprin) mg PO DAILY [facility] Clopidogrel Bisulfate (Plavix) 75 mg PO DAILY [facility] Finasteride (Proscar) mg PO DAILY [facility] Heparin Sodium (Porcine) (Heparin Sodium) 5,000 units SUBCUT Q8HR [facility] Potassium Chloride/Sodium Chloride (Normal Saline With 20 Meq Kcl) 1,000 mls @ 75 mls/hr IV ASDIRECTED [facility]ISE Lorazepam (Ativan) 0.5 mg PO BID PRN PRN Reason: Anxiety Magnesium Hydroxide (Milk Of Magnesia) 30 ml PO BID PRN PRN Reason: Constipation Metoprolol Tartrate (Lopressor) 25 mg PO BID [facility] Non-Formulary Medication (Lactobacillus Acidophilus/Fos [Acidophilus Probiotic Tablet]) 1 each PO DAILY [facility] Non-Formulary Medication (Methyl Salicylate/Menth/Camph [Pain Relieving Rub Cream]) 57 gm TP TID PRN PRN Reason: Pain Ondansetron HCl (Zofran Odt) 4 mg PO Q6H PRN PRN Reason: nausea, able to take PO Ondansetron HCl (Zofran) 4 mg IVPUSH Q6H PRN PRN Reason: Nausea/Vomiting Oxycodone HCl (Oxycontin) 20 mg PO BID [facility] Oxycodone/Acetaminophen (Percocet 325-5 Mg) 0.5 tab PO Q4HR PRN PRN Reason: Pain Polyethylene Glycol (Miralax) 17 gm PO DAILY PRN PRN Reason: Constipation Promethazine HCl (Phenergan) 6.25 mg IM Q6H PRN PRN Reason: Nausea/Vomiting Sodium Chloride (Saline Flush) 10 ml FLUSH ASDIRECTED PRN PRN Reason: Keep Vein Open Zolpidem Tartrate (Ambien) 5 mg PO BEDTIME PRN PRN Reason: Sleep Assessment/Plan Comment:: The patient is an 86-year-old gentleman who presented with nausea, vomiting. He has been having these symptoms for weeks. The nausea is worse when he smells or looks at food. This is associated with weight loss. 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 He was in swing bed later moved to a detention. He denies cough, fever, shortness of breath, chest pain, abdominal pain. No loose bowel movements. Acute renal failure likely due to dehydration due to decreased oral intake Will treat with IV fluids Follow electrolytes and renal function test Nausea and decreased oral intake might be due to medications Given the acute renal failure I will stop the Neurontin, metformin I will decrease the oxycodone ER Coronary artery disease Continue aspirin, Plavix, metoprolol Diabetes Hold metformin Use supplemental insulin and hypoglycemia protocol if needed Chronic urinary retention The patient has a indwelling chronic Jaffe catheter With that we can probably can stop the doxazosin, For now I would continue Flomax and Proscar An elevated sedimentation rate about 100 was noted This is similar to what he had 1 month ago There is no apparent cellulitis or infection in the stump He has a indwelling Jaffe catheter I will get blood cultures, urine analysis and urine culture For now hold antibiotics until source of infection can be identified. DVT prophylaxis will be with subcutaneous heparin CODE STATUS was discussed with the patient. He would like to have DNR CODE STATUS.
[2017-04-08] MEDS: Ondansetron 4 MG/2 ML SDV IVPUSH PRN (15:39)
[2017-04-08] MEDS: NS + KCl 20mEq/L 1,000 ML IV SCH (15:39)
[2017-04-08] MEDS: Insulin Aspart 100 Units/ML 3 ML Pen SUBCUT SCH (17:10)
[2017-04-08] MEDS: Metoprolol Tartrate 25 MG Tab PO SCH (21:29)
[2017-04-08] MEDS: oxyCODONE ER 20 MG TAB.ER PO SCH (21:29)
[2017-04-08] MEDS: Heparin Sodium 5,000 Units/ML Vial SUBCUT SCH (21:30)
[2017-04-09] MEDS: NS + KCl 20mEq/L 1,000 ML IV SCH ×2 (04:51→18:08)
[2017-04-09] MEDS: Heparin Sodium 5,000 Units/ML Vial SUBCUT SCH ×3 (06:33→21:38)
[2017-04-09] MEDS ORDERED: [UNRECOGNIZED DRUG - OTHER] PO SCH (09:00)
[2017-04-09] MEDS: Aspirin 81 MG Tab.EC PO SCH (09:10)
[2017-04-09] MEDS: oxyCODONE ER 20 MG TAB.ER PO SCH ×2 (09:10→21:38)
[2017-04-09] MEDS: Clopidogrel 75 MG Tab PO SCH (09:10)
[2017-04-09] MEDS: Metoprolol Tartrate 25 MG Tab PO SCH ×2 (09:11→21:38)
[2017-04-09] MEDS: Finasteride 5 MG Tab PO SCH (09:11)
[2017-04-09] MEDS: Insulin Aspart 100 Units/ML 3 ML Pen SUBCUT SCH ×3 (09:11→17:53)
--- NOTE | 2017-04-09 12:02 | PCM.PN ---
- General Info Date of Service: 04/09/17 Admission Dx/Problem (Free Text): Admission Diagnosis/Problem Admission Diagnosis/Problem Acute renal failure Subjective Update: He is feeling a little bit stronger. Had more appetite today. Ate about 55% of the breakfast. No associated abdominal pain. No fever or chills. Functional Status: Reports: Pain Controlled - Review of Systems General: Reports: Weakness. Denies: Fever Pulmonary: Denies: Shortness of Breath Cardiovascular: Denies: Chest Pain Gastrointestinal: Denies: Abdominal Pain Neurological: Denies: Confusion - Patient Data Vitals - Most Recent: Last Vital Signs Temp 36.7 C 04/09/17 11:00 Pulse 83 04/09/17 11:00 Resp 20 04/09/17 11:00 BP 116/42 L 04/09/17 11:00 Pulse Ox 96 04/09/17 11:00 Weight - Most Recent: 76.566 kg I&O - Last 24 Hours: Intake & Output 04/08/17 04/09/17 04/09/17 22:59 06:59 14:59 Intake Total 325 1035 Output Total 925 Balance 325 110 Lab Results Last 24 Hours: Laboratory Results - last 24 hr 04/08/17 04/08/17 04/08/17 Range/Units 15:50 17:06 21:13 WBC (5.0-10.0) 10^3/uL RBC (4.6-6.2) 10^6/uL Hgb (14.0-18.0) g/dL Hct (40.0-54.0) % MCV (80-100) fL MCH (27.0-34.0) pg MCHC (33.0-35.0) g/dL Plt Count (150-450) 10^3/uL Neut % (Auto) (42.2-75.2) % Lymph % (Auto) (20.5-50.1) % [place] % (Auto) (2-8) % Eos % (Auto) (1.0-3.0) % Baso % (Auto) (0.0-1.0) % Sodium (135-145) mmol/L Potassium (3.6-5.0) mmol/L Chloride (101-111) mmol/L Carbon Dioxide (21.0-31.0) mmol/L Anion Gap BUN (7-18) mg/dL Creatinine (0.6-1.3) mg/dL Est Cr Clr Drug Dosing mL/min Estimated GFR (MDRD) Glucose (74-105) mg/dL POC Glucose 93 90 (83-110) mg/dl Calcium (8.4-10.2) mg/dl Urine Color Yellow (YELLOW) Urine Appearance Slightly cloudy (CLEAR) Urine pH 6.5 (5.0-9.0) Ur Specific [place] 1.020 (1.005-1.030) Urine Protein 100 H (NEGATIVE) Urine Glucose (UA) 100 H (NEGATIVE) Urine Ketones 15 H (NEGATIVE) Urine Occult Blood Small H (NEGATIVE) Urine Nitrite Negative (NEGATIVE) Urine Bilirubin Negative (NEGATIVE) Urine Urobilinogen 0.2 (0.2-1.0) mg/dL Ur Leukocyte Esterase Small H (NEGATIVE) Urine RBC 5-10 H /HPF Urine WBC 50-75 H (0-5/HPF) /HPF Ur Epithelial Cells Occasional /HPF Urine Bacteria Few (0-FEW/HPF) /HPF Granular Casts See note /LPF Urine Mucus Few H /LPF Urine Other See note 04/09/17 04/09/17 04/09/17 Range/Units 06:23 06:23 08:18 WBC 9.6 (5.0-10.0) 10^3/uL RBC 2.96 L (4.6-6.2) 10^6/uL Hgb 8.9 L (14.0-18.0) g/dL Hct 28.2 L (40.0-54.0) % MCV 95.3 (80-100) fL MCH 30.1 (27.0-34.0) pg MCHC 31.6 L (33.0-35.0) g/dL Plt Count 463 H (150-450) 10^3/uL Neut % (Auto) 67.6 (42.2-75.2) % Lymph % (Auto) 15.3 L (20.5-50.1) % [place]gs % (Auto) 11.8 H (2-8) % Eos % (Auto) 5.1 H (1.0-3.0) % Baso % (Auto) 0.2 (0.0-1.0) % Sodium 142 (135-145) mmol/L Potassium 3.6 (3.6-5.0) mmol/L Chloride 109 (101-111) mmol/L Carbon Dioxide 23.0 (21.0-31.0) mmol/L Anion Gap 13.6 BUN 20 H (7-18) mg/dL Creatinine 1.7 H (0.6-1.3) mg/dL Est Cr Clr Drug Dosing 26.60 mL/min Estimated GFR (MDRD) 38 Glucose 82 (74-105) mg/dL POC Glucose 68 L (83-110) mg/dl Calcium 8.6 (8.4-10.2) mg/dl Urine Color (YELLOW) Urine Appearance (CLEAR) Urine pH (5.0-9.0) Ur Specific [place] (1.005-1.030) Urine Protein (NEGATIVE) Urine Glucose (UA) (NEGATIVE) Urine Ketones (NEGATIVE) Urine Occult Blood (NEGATIVE) Urine Nitrite (NEGATIVE) Urine Bilirubin (NEGATIVE) Urine Urobilinogen (0.2-1.0) mg/dL Ur Leukocyte Esterase (NEGATIVE) Urine RBC /HPF Urine WBC (0-5/HPF) /HPF Ur Epithelial Cells /HPF Urine Bacteria (0-FEW/HPF) /HPF Granular Casts /LPF Urine Mucus /LPF Urine Other Haresh Results Last 24 Hours: Microbiology 04/08/17 15:50 Urine Culture - Preliminary Urine, Catheterized NO GROWTH AFTER 1 DAY Med Orders - Current: Current Medications Acetaminophen (Tylenol) 650 mg PO Q4H PRN PRN Reason: Pain (Mild 1-3)/fever Aspirin (Halfprin) 81 mg PO DAILY [facility] Last Admin: 04/09/17 09:10 Dose: 81 mg Clopidogrel Bisulfate (Plavix) 75 mg PO DAILY [facility] Last Admin: 04/09/17 09:10 Dose: 75 mg Finasteride (Proscar) 5 mg PO DAILY [facility] Last Admin: 04/09/17 09:11 Dose: 5 mg Heparin Sodium (Porcine) (Heparin Sodium) 5,000 units SUBCUT Q8HR [facility] Last Admin: 04/09/17 06:33 Dose: 5,000 units Potassium Chloride/Sodium Chloride (Normal Saline With 20 Meq Kcl) 1,000 mls @ 75 mls/hr IV ASDIRECTED [facility] Last Admin: 04/09/17 04:51 Dose: 75 mls/hr Insulin Aspart (Novolog) 0 unit SUBCUT TIDAC [facility] PRN Reason: Protocol Last Admin: 04/09/17 09:11 Dose: Not Given Lorazepam (Ativan) 0.5 mg PO BID PRN PRN Reason: Anxiety Magnesium Hydroxide (Milk Of Magnesia) 30 ml PO BID PRN PRN Reason: Constipation Methyl Salicylate (Icy Hot Cream) 0 gm TOP TID PRN PRN Reason: Pain Metoprolol Tartrate (Lopressor) 25 mg PO BID [facility] Last Admin: 04/09/17 09:11 Dose: Not Given Non-Formulary Medication (Lactobacillus Acidophilus/Fos [Acidophilus Probiotic Tablet]) 1 each PO DAILY [facility] Ondansetron HCl (Zofran Odt) 4 mg PO Q6H PRN PRN Reason: nausea, able to take PO Ondansetron HCl (Zofran) 4 mg IVPUSH Q6H PRN PRN Reason: Nausea/Vomiting Last Admin: 04/08/17 15:39 Dose: 4 mg Oxycodone HCl (Oxycontin) 20 mg PO BID [facility] Last Admin: 04/09/17 09:10 Dose: 20 mg Oxycodone/Acetaminophen (Percocet 325-5 Mg) 0.5 tab PO Q4HR PRN PRN Reason: Pain Polyethylene Glycol (Miralax) 17 gm PO DAILY PRN PRN Reason: Constipation Promethazine HCl (Phenergan) 6.25 mg IM Q6H PRN PRN Reason: Nausea/Vomiting Sodium Chloride (Saline Flush) 10 ml FLUSH ASDIRECTED PRN PRN Reason: Keep Vein Open Zolpidem Tartrate (Ambien) 5 mg PO BEDTIME PRN PRN Reason: Sleep - Exam General: Alert, Oriented Neck: Supple Lungs: Clear to Auscultation, Normal Respiratory Effort GI/Abdominal Exam: Normal Bowel Sounds, Soft, Non-Tender Extremities: Other (Right above-knee amputation) Skin: Warm, Dry Psy/Mental Status: Alert, Depressed - Problem List & Annotations (1) Dehydration SNOMED Code(s): 11232984 Code(s): E86.0 - DEHYDRATION Status: Acute Current Visit: Yes (2) Elevated sedimentation rate SNOMED Code(s): 230927642 Code(s): R70.0 - ELEVATED ERYTHROCYTE SEDIMENTATION RATE Status: Acute Current Visit: Yes (3) CHASITY (acute kidney injury) SNOMED Code(s): 58972655 Code(s): N17.9 - ACUTE KIDNEY FAILURE, UNSPECIFIED Status: Acute Current Visit: No (4) Amputated left leg SNOMED Code(s): 504370171 Code(s): Z89.612 - ACQUIRED ABSENCE OF LEFT LEG ABOVE KNEE Status: Acute Current Visit: No (5) Diabetes SNOMED Code(s): 17113867 Code(s): E11.9 - TYPE 2 DIABETES MELLITUS WITHOUT COMPLICATIONS Status: Acute Current Visit: No - Problem List Review Problem List Initiated/Reviewed/Updated: Yes - My Orders Last 24 Hours: My Active Orders 04/08/17 14:22 Blood Culture x2 Reflex Set [OM.PC] Stat 04/08/17 14:30 NS + KCl 20mEq/L [Normal Saline with 20 mEq KCl] 1,000 ml IV ASDIRECTED 04/08/17 14:31 Patient Status [ADT] Routine Oxygen Therapy [RC] PRN Up With Assistance [RC] ASDIRECTED Vital Signs [RC] Q4H Acetaminophen [Tylenol] 650 mg PO Q4H PRN Ondansetron [Zofran ODT] 4 mg PO Q6H PRN Ondansetron [Zofran] 4 mg IVPUSH Q6H PRN Promethazine [Phenergan] 6.25 mg IM Q6H PRN Sodium Chloride 0.9% [Saline Flush] 10 ml FLUSH ASDIRECTED PRN Zolpidem [Ambien] 5 mg PO BEDTIME PRN Peripheral IV Insertion Adult [OM.PC] Routine Resuscitation Status Routine 04/08/17 14:34 Antiembolic Hose [OM.PC] Per Unit Routine 04/08/17 14:35 CULTURE BLOOD [BC] Routine 04/08/17 14:36 Antiembolic Devices [RC] PER UNIT ROUTINE Peripheral IV Care [RC] 09,21 Acetaminophen/oxyCODONE [Percocet 325-5 MG] 0.5 tab PO Q4HR PRN LORazepam [Ativan] 0.5 mg PO BID PRN Magnesium Hydroxide [Milk of Magnesia] 30 ml PO BID PRN Menthol/Methyl Salicylate [Icy Hot Cream] 0 gm TOP TID PRN Polyethylene Glycol 3350 [MiraLAX] 17 gm PO DAILY PRN 04/08/17 14:38 CULTURE BLOOD [BC] Routine 04/08/17 14:54 Glucose [Blood Glucose Check, Bedside] [RC] QIDACANDBED 04/08/17 15:50 CULTURE URINE [RM] Routine 04/08/17 17:00 Insulin Aspart [NovoLOG] See Protocol SUBCUT TIDAC 04/08/17 21:00 Metoprolol Tartrate [Lopressor] 25 mg PO BID oxyCODONE ER [OxyCONTIN] 20 mg PO BID 04/08/17 22:00 Heparin Sodium 5,000 units SUBCUT Q8HR 04/08/17 Dinner Regular Diet [DIET] 04/09/17 09:00 Aspirin [Halfprin] 81 mg PO DAILY Clopidogrel [Plavix] 75 mg PO DAILY Finasteride [Proscar] 5 mg PO DAILY Lactobacillus Acidophilus/Fos [Acidophilus Probiotic Tablet] 1 each PO DAILY - Plan Plan:: The patient is an 86-year-old gentleman who presented with nausea, vomiting. He has been having these symptoms for weeks. The nausea is worse when he smells or looks at food. This is associated with weight loss. 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 He was in [facility] He denies cough, fever, shortness of breath, chest pain, abdominal pain. No loose bowel movements. Acute renal failure likely due to dehydration due to decreased oral intake Somewhat improved Will continue to treat with IV fluids Follow electrolytes and renal function test Nausea and decreased oral intake might be due to medications Given the acute renal failure I will stop the Neurontin, metformin I have decreased the oxycodone ER Use antiemetics as needed Coronary artery disease Continue aspirin, Plavix, metoprolol Diabetes Hold metformin given the renal failure Use supplemental insulin and hypoglycemia protocol if needed Chronic urinary retention The patient has a indwelling chronic Jaffe catheter With that we can probably can stop the doxazosin, For now I would continue Flomax and Proscar An elevated sedimentation rate about 100 was noted This is similar to what he had 1 month ago There is no apparent cellulitis or infection in the stump He has a indwelling Jaffe catheter Pending blood cultures, Pending urine culture For now hold antibiotics until source of infection can be identified. DVT prophylaxis will be with subcutaneous heparin CODE STATUS was discussed with the patient. He would like to have DNR CODE STATUS.
[2017-04-09] MEDS: Ondansetron 4 MG/2 ML SDV IVPUSH PRN (14:28)
[2017-04-10] MEDS: Heparin Sodium 5,000 Units/ML Vial SUBCUT SCH ×2 (06:19→13:43)
[2017-04-10] MEDS: NS + KCl 20mEq/L 1,000 ML IV SCH (07:40)
[2017-04-10] MEDS: Insulin Aspart 100 Units/ML 3 ML Pen SUBCUT SCH ×3 (08:11→17:46)
[2017-04-10] MEDS: oxyCODONE ER 20 MG TAB.ER PO SCH ×2 (08:22→20:40)
[2017-04-10] MEDS: PARoxetine 20 MG Tab PO SCH (08:22)
[2017-04-10] MEDS: Metoprolol Tartrate 25 MG Tab PO SCH ×2 (08:22→20:39)
[2017-04-10] MEDS: Clopidogrel 75 MG Tab PO SCH (08:23)
[2017-04-10] MEDS: Finasteride 5 MG Tab PO SCH (08:23)
[2017-04-10] MEDS: Aspirin 81 MG Tab.EC PO SCH (08:23)
--- NOTE | 2017-04-10 10:42 | PCM.PN ---
- General Info Date of Service: 04/10/17 Admission Dx/Problem (Free Text): Admission Diagnosis/Problem Admission Diagnosis/Problem Acute renal failure Subjective Update: He continues to have nausea, eating very difficult. No associated fever or chills. No associated abdominal pain. Functional Status: Denies: Tolerating Diet, Ambulating - Review of Systems General: Reports: Weakness. Denies: Fever Pulmonary: Denies: Shortness of Breath Cardiovascular: Denies: Chest Pain Gastrointestinal: Reports: Nausea. Denies: Abdominal Pain, Vomiting Neurological: Denies: Confusion - Patient Data Vitals - Most Recent: Last Vital Signs Temp 35.9 C 04/10/17 07:00 Pulse 61 04/10/17 08:22 Resp 20 04/10/17 07:00 BP 125/50 L 04/10/17 08:22 Pulse Ox 97 04/10/17 07:00 Weight - Most Recent: 78.103 kg I&O - Last 24 Hours: Intake & Output 04/09/17 04/10/17 04/10/17 22:59 06:59 14:59 Intake Total 1521 1034 240 Output Total 550 550 Balance 971 484 240 Lab Results Last 24 Hours: Laboratory Results - last 24 hr 04/09/17 04/09/17 04/09/17 Range/Units 10:58 17:07 21:04 WBC (5.0-10.0) 10^3/uL RBC (4.6-6.2) 10^6/uL Hgb (14.0-18.0) g/dL Hct (40.0-54.0) % MCV (80-100) fL MCH (27.0-34.0) pg MCHC (33.0-35.0) g/dL Plt Count (150-450) 10^3/uL Neut % (Auto) (42.2-75.2) % Lymph % (Auto) (20.5-50.1) % [place] % (Auto) (2-8) % Eos % (Auto) (1.0-3.0) % Baso % (Auto) (0.0-1.0) % Sodium (135-145) mmol/L Potassium (3.6-5.0) mmol/L Chloride (101-111) mmol/L Carbon Dioxide (21.0-31.0) mmol/L Anion Gap BUN (7-18) mg/dL Creatinine (0.6-1.3) mg/dL Est Cr Clr Drug Dosing mL/min Estimated GFR (MDRD) Glucose (74-105) mg/dL POC Glucose 106 93 99 (83-110) mg/dl Calcium (8.4-10.2) mg/dl 04/10/17 04/10/17 04/10/17 Range/Units 06:25 06:25 07:52 WBC 9.2 (5.0-10.0) 10^3/uL RBC 2.83 L (4.6-6.2) 10^6/uL Hgb 8.4 L (14.0-18.0) g/dL Hct 27.0 L (40.0-54.0) % MCV 95.4 (80-100) fL MCH 29.7 (27.0-34.0) pg MCHC 31.1 L (33.0-35.0) g/dL Plt Count 442 (150-450) 10^3/uL Neut % (Auto) 65.0 (42.2-75.2) % Lymph % (Auto) 17.9 L (20.5-50.1) % [place] % (Auto) 12.0 H (2-8) % Eos % (Auto) 4.8 H (1.0-3.0) % Baso % (Auto) 0.3 (0.0-1.0) % Sodium 140 (135-145) mmol/L Potassium 3.7 (3.6-5.0) mmol/L Chloride 111 (101-111) mmol/L Carbon Dioxide 21.0 (21.0-31.0) mmol/L Anion Gap 11.7 BUN 18 (7-18) mg/dL Creatinine 1.5 H (0.6-1.3) mg/dL Est Cr Clr Drug Dosing 30.15 mL/min Estimated GFR (MDRD) 44 Glucose 94 (74-105) mg/dL POC Glucose 86 (83-110) mg/dl Calcium 8.5 (8.4-10.2) mg/dl Haresh Results Last 24 Hours: Microbiology 04/08/17 15:50 Urine Culture - Preliminary Urine, Catheterized 04/08/17 14:38 Aerobic Blood Culture - Preliminary Blood - Venous - Lab Draw NO GROWTH AFTER 1 DAY Anaerobic Blood Culture - Preliminary NO GROWTH AFTER 1 DAY 04/08/17 14:35 Aerobic Blood Culture - Preliminary Blood - Venous NO GROWTH AFTER 1 DAY Anaerobic Blood Culture - Preliminary NO GROWTH AFTER 1 DAY Med Orders - Current: Current Medications Acetaminophen (Tylenol) 650 mg PO Q4H PRN PRN Reason: Pain (Mild 1-3)/fever Last Admin: 04/10/17 02:51 Dose: 650 mg Aspirin (Halfprin) 81 mg PO DAILY [facility] Last Admin: 04/10/17 08:23 Dose: 81 mg Clopidogrel Bisulfate (Plavix) 75 mg PO DAILY [facility] Last Admin: 04/10/17 08:23 Dose: 75 mg Finasteride (Proscar) 5 mg PO DAILY [facility] Last Admin: 04/10/17 08:23 Dose: 5 mg Heparin Sodium (Porcine) (Heparin Sodium) 5,000 units SUBCUT Q8HR [facility] Last Admin: 04/10/17 06:19 Dose: 5,000 units Insulin Aspart (Novolog) 0 unit SUBCUT TIDAC [facility] PRN Reason: Protocol Last Admin: 04/10/17 08:11 Dose: Not Given Lorazepam (Ativan) 0.5 mg PO BID PRN PRN Reason: Anxiety Magnesium Hydroxide (Milk Of Magnesia) 30 ml PO BID PRN PRN Reason: Constipation Methyl Salicylate (Icy Hot Cream) 0 gm TOP TID PRN PRN Reason: Pain Metoclopramide HCl (Reglan) 10 mg IVPUSH TID [facility] Metoprolol Tartrate (Lopressor) 25 mg PO BID [facility] Last Admin: 04/10/17 08:22 Dose: 25 mg Non-Formulary Medication (Lactobacillus Acidophilus/Fos [Acidophilus Probiotic Tablet]) 1 each PO DAILY [facility] Ondansetron HCl (Zofran Odt) 4 mg PO Q6H PRN PRN Reason: nausea, able to take PO Last Admin: 04/10/17 09:47 Dose: 4 mg Ondansetron HCl (Zofran) 4 mg IVPUSH Q6H PRN PRN Reason: Nausea/Vomiting Last Admin: 04/09/17 14:28 Dose: 4 mg Oxycodone HCl (Oxycontin) 20 mg PO BID [facility] Last Admin: 04/10/17 08:22 Dose: 20 mg Oxycodone/Acetaminophen (Percocet 325-5 Mg) 0.5 tab PO Q4HR PRN PRN Reason: Pain Paroxetine HCl (Paxil) 20 mg PO DAILY [facility] Last Admin: 04/10/17 08:22 Dose: 20 mg Polyethylene Glycol (Miralax) 17 gm PO DAILY PRN PRN Reason: Constipation Last Admin: 04/10/17 08:23 Dose: 17 gm Promethazine HCl (Phenergan) 6.25 mg IM Q6H PRN PRN Reason: Nausea/Vomiting Sodium Chloride (Saline Flush) 10 ml FLUSH ASDIRECTED PRN PRN Reason: Keep Vein Open Zolpidem Tartrate (Ambien) 5 mg PO BEDTIME PRN PRN Reason: Sleep Discontinued Medications Potassium Chloride/Sodium Chloride (Normal Saline With 20 Meq Kcl) 1,000 mls @ 75 mls/hr IV ASDIRECTED [facility] Last Admin: 04/10/17 07:40 Dose: 75 mls/hr - Exam General: Alert, Oriented Neck: Supple Lungs: Clear to Auscultation, Normal Respiratory Effort Cardiovascular: Regular Rate, Regular Rhythm GI/Abdominal Exam: Normal Bowel Sounds, Soft, Non-Tender, No Distention Extremities: Other (amputation) Skin: Warm, Dry Neurological: No New Focal Deficit Psy/Mental Status: Alert, Normal Affect, Depressed - Problem List & Annotations (1) Dehydration SNOMED Code(s): 38444115 Code(s): E86.0 - DEHYDRATION Status: Acute Current Visit: Yes (2) Elevated sedimentation rate SNOMED Code(s): 541724414 Code(s): R70.0 - ELEVATED ERYTHROCYTE SEDIMENTATION RATE Status: Acute Current Visit: Yes (3) CHASITY (acute kidney injury) SNOMED Code(s): 62203820 Code(s): N17.9 - ACUTE KIDNEY FAILURE, UNSPECIFIED Status: Acute Current Visit: No (4) Amputated left leg SNOMED Code(s): 177239946 Code(s): Z89.612 - ACQUIRED ABSENCE OF LEFT LEG ABOVE KNEE Status: Acute Current Visit: No (5) Diabetes SNOMED Code(s): 61944870 Code(s): E11.9 - TYPE 2 DIABETES MELLITUS WITHOUT COMPLICATIONS Status: Acute Current Visit: No - Problem List Review Problem List Initiated/Reviewed/Updated: Yes - My Orders Last 24 Hours: My Active Orders 04/09/17 15:51 Dietary Supplements [RC] BIDMEALS 04/10/17 09:00 PARoxetine [Paxil] 20 mg PO DAILY 04/10/17 14:00 Metoclopramide [Reglan] 10 mg IVPUSH TID 04/11/17 05:15 BASIC METABOLIC PANEL,BMP [CHEM] AM CBC WITH AUTO DIFF [HEME] AM - Plan Plan:: The patient is an 86-year-old gentleman who presented with nausea, vomiting. He has been having these symptoms for weeks. The nausea is worse when he smells or looks at food. This is associated with weight loss. 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 He was in swing bed later moved to a care home. He denies cough, fever, shortness of breath, chest pain, abdominal pain. No loose bowel movements. #1 Acute renal failure likely due to dehydration due to decreased oral intake improved We will stop the IV fluids Follow electrolytes and renal function test Nausea and decreased oral intake might be due to medications Given the acute renal failure I have stopped the Neurontin, metformin I have decreased the oxycodone ER Use antiemetics as needed Start scheduled metoclopramide Coronary artery disease Continue aspirin, Plavix, metoprolol Diabetes Hold metformin given the renal failure Use supplemental insulin and hypoglycemia protocol if needed Chronic urinary retention The patient has a indwelling chronic Jaffe catheter will try to remove the catheter Follow for urinary retention For now I would continue Flomax and Proscar An elevated sedimentation rate about 100 was noted This is similar to what he had 1 month ago There is no apparent cellulitis or infection in the stump He has a indwelling Jaffe catheter Pending blood cultures, Pending urine culture For now hold antibiotics until source of infection can be identified. Depression Start Paxil DVT prophylaxis will be with subcutaneous heparin CODE STATUS was discussed with the patient. He would like to have DNR CODE STATUS.
[2017-04-10] MEDS: Metoclopramide 10 MG/2 ML SDV IVPUSH SCH ×2 (14:21→20:51)
[2017-04-10] MEDS ORDERED: Heparin Sodium 5,000 Units/ML Vial SUBCUT SCH (21:00)
[2017-04-11] MEDS ORDERED: Zolpidem 5 MG Tab PO ONE (03:39)
[2017-04-11] MEDS: Insulin Aspart 100 Units/ML 3 ML Pen SUBCUT SCH ×3 (09:44→17:20)
[2017-04-11] MEDS: Aspirin 81 MG Tab.EC PO SCH (09:45)
[2017-04-11] MEDS: Metoprolol Tartrate 25 MG Tab PO SCH ×2 (09:46→21:14)
[2017-04-11] MEDS: oxyCODONE ER 20 MG TAB.ER PO SCH (09:47)
[2017-04-11] MEDS: PARoxetine 20 MG Tab PO SCH (09:48)
[2017-04-11] MEDS: Finasteride 5 MG Tab PO SCH (09:48)
[2017-04-11] MEDS: Ciprofloxacin 500 MG Tab PO SCH ×3 (09:56→21:07)
[2017-04-11] MEDS: Metoclopramide 10 MG/2 ML SDV IVPUSH SCH ×2 (10:14→14:44)
[2017-04-11] MEDS: Clopidogrel 75 MG Tab PO SCH (12:19)
[2017-04-11] MEDS ORDERED: Insulin Aspart 100 Units/ML 3 ML Pen SUBCUT SCH (17:00)
[2017-04-11] MEDS: Ondansetron 4 MG Tab.DIS PO SCH (19:26)
[2017-04-11] MEDS: oxyCODONE ER 10 MG TAB.ER PO SCH (21:14)
--- NOTE | 2017-04-12 08:01 | PN ---
DATE: 04/11/2017 HISTORY OF PRESENT ILLNESS: Mr. 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 He was recently in swing bed from March 05 to April 01, and was transferred to the [facility] at that time. He now returns for admission with nausea and vomiting. These symptoms have been going on for several weeks. The nausea is worse when he even smells food. There has been an associated weight loss. His weight in swing bed was about 182, went down to 168 when he was readmitted to swing bed, and now has come up about 4 pounds to 172 pounds. There have been no other associated symptoms such as fever, cough, diarrhea, shortness of breath, chest or abdominal pain. He does seems to be in a general decline since transfer to the alf. Family states that he has always been adamant that he never wanted to be admitted to the alf. His of 64 years earlier this year and also he has been more depressed since the amputation of the legs. I spoke at length with his son and [id number] today. We also discussed his course with Dr. Turner. One of our concerns is that right now he has some polypharmacy issues. We went over all of his meds. We discussed this with the family, and we have attempted to reduce his medications to only what we would consider necessary. We will see if this brings about the change in his appetite as the meds may be contributing to poor appetite. LABORATORY DATA: Lab work today included CBC showed a white count of 12,000, hemoglobin and hematocrit are stable at 8.7 and 27.5, platelets are normal. Chemistry showed potassium of 3.5, BUN and creatinine of 14 and 1.4, with an improved GFR of 48. LFTs are unremarkable. Albumin is down to 2.3. Blood sugars are being monitored and are well controlled. Review of his clinical data shows adequate fluid intake, but poor oral intake at meals. Even when he is given snacks, he basically just leaves them on the tray. He had been on IV fluids at admission, but these were stopped yesterday. Vital signs have remained stable and he has remained afebrile. PHYSICAL EXAMINATION: General: He is sitting in bed, he was awake and alert, slightly withdrawn, but he could be coaxed out somewhat and he did participate in the visit. He denied any pain or symptoms of concern, he just said he has no appetite, food is not appealing and does not like the smell of food. Vital Signs: Blood pressure 124/44, pulse 62 and regular, respiratory rate 20, oxygen saturation 97% on room air, and he is afebrile. HEENT: Unremarkable. ENT was clear. Chest: Showed clear bilateral breath sounds. Heart: Showed regular rate and rhythm. Abdomen: Soft, benign. Extremities: Showed well-healed left stump, otherwise exam was unremarkable. Review of his microbiology shows 2 blood cultures with no growth after 3 days. He also has a urine culture, which is positive for Pseudomonas. We started him on ciprofloxacin 250 mg twice a day because of his reduced creatinine clearance of 32.5. We did a complete review of his medications and we have discontinued quite a few. We will try to send him back on the least amount of medications as possible. Dr. Turner also suggested that we obtain a CT scan of the abdomen and pelvis because of the symptoms of weight loss, nausea, vomiting. This was performed without contrast again because of the reduced creatinine clearance. The CT scan was completely unremarkable without any acute findings. We will keep Mr. Crenshaw in the hospital overnight tonight because of the medication changes that we have made and our plan is to discharge him tomorrow back to the [facility], and we will see if medication changes bring about any improvement in his appetite. He has scheduled follow up coming up with multiple providers including Urology, as well as Vascular Medicine. No other changes are made today. [facility] /[id number] ISAAK
[2017-04-12] MEDS: oxyCODONE ER 10 MG TAB.ER PO SCH (09:11)
[2017-04-12] MEDS: Insulin Aspart 100 Units/ML 3 ML Pen SUBCUT SCH ×2 (09:11→12:21)
[2017-04-12] MEDS: Metoprolol Tartrate 25 MG Tab PO SCH (09:12)
[2017-04-12] MEDS: Ondansetron 4 MG Tab.DIS PO SCH ×2 (09:12→12:20)
[2017-04-12] MEDS: PARoxetine 20 MG Tab PO SCH (09:12)
[2017-04-12] MEDS: Ciprofloxacin 500 MG Tab PO SCH (09:13)
[2017-04-12 11:01] VITALS: BP 116/46
--- NOTE | 2017-04-25 02:54 | DISCH ---
DISCHARGE DIAGNOSES: 1. Decreased appetite with nausea and vomiting and associated weight loss. 2. Depression, situational. 3. Polypharmacy: Med reconciliation and reduction done prior to discharge. 4. Status post left [id number]-[id number]. 5. Anemia, normocytic. 6. Chronic kidney disease, stage 3. 7. Hypoalbuminemia. 8. Urinary tract infection. Culture positive for Pseudomonas fluorescens- putida. 9. Type 2 diabetes, well controlled. 10.Peripheral arterial disease. BRIEF HISTORY OF PRESENT ILLNESS: Mr. Crenshaw is an 86-year-old gentleman, known to the staff from recent admission to swing bed from March 05 to April 01. 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 He was then transferred to the [facility]. He now returned for admission with the main complaint of nausea and vomiting. These symptoms have been going on for several weeks. The nausea is worse when he even smells food. There has been associated weight loss. When he was in swing bed, his weight was about 182 pounds. This has gone down to 168 and has now come up about 4 pounds to 172. There were no other associated symptoms or complaints. He does seem to be in general decline since he was transferred to the correction, and his family is understandably quite concerned. He was admitted for further evaluation. PERTINENT LABS AND X-RAYS: CBC at the time of admission showed hemoglobin and hematocrit of 8.9 and 28 with an MCV of 95. This remained relatively unchanged throughout the admission. White count and platelets were normal. Electrolytes were normal. BUN and creatinine were 20 and 1.7 with a GFR of 38. BUN and creatinine improved to 14 and 1.4 with a GFR of 15 prior to discharge following hydration and medication adjustment. Blood sugars were monitored throughout the admission and were well controlled. Urinalysis showed a slightly cloudy yellow urine with a specific gravity of 1.020, positive for ketones and leukocyte esterase. Microscopic exam showed 50 to 75 wbc's per high-power field. MICROBIOLOGY: Two sets of blood cultures remained without growth after 5 days. Urine culture was positive for Pseudomonas fluorescens putida. IMAGING STUDIES: A CT scan of the abdomen and pelvis was performed without contrast. The CT scan was ordered after discussion with his primary care physician to rule out any underlying pathology, which could be the cause of the complaints and weight loss. The CT scan was essentially unremarkable and showed no acute findings. HOSPITAL COURSE: Mr. Crenshaw was admitted as an acute inpatient. He was started on IV fluids with normal saline and potassium supplement. Heparin was used for VTE prophylaxis. Ondansetron IV and oral were written for nausea and vomiting as well as p.r.n. Phenergan. His usual medications were continued. He had been on OxyContin since the last admission for pain management. He was started on ciprofloxacin 250 mg twice a day for the positive urine culture. During this admission, we spoke with his family and then with his primary care provider, and we felt that one of the problems Mr. Crenshaw is facing may have been polypharmacy. We did a complete review of his medications and we were able to discontinue or consolidate quite a few, and we are sending him back to the correction with a much reduced med list. The morning following the reduction of many of his meds, he actually looked and felt somewhat better, and we are somewhat hopeful that this will make a significant difference in his ability to regain his appetite and improve his oral intake. Review of his clinical data prior to discharge showed that he was taking in more or less adequate oral fluids. His appetite remained quite poor, although slightly improved at discharge. He was voiding and moving his bowels. PHYSICAL EXAMINATION: Vital signs: Remained stable. He is afebrile. On the day of discharge; blood pressure was 116/46, pulse 65, respiratory rate 20, oxygen saturation 96% on room air. He is afebrile. HEENT: Unremarkable. ENT was clear. Chest: Showed clear bilateral breath sounds. Heart: Regular rate and rhythm. Abdomen: Soft and benign. Extremities: Showed well-healed left stump at the site of the BKA and the right leg was unremarkable. Neurological: There were no gross motor or sensory deficits. DISCHARGE MEDICATION LIST: CONDITION AT THE TIME OF DISCHARGE: Condition at the time of discharge back to the [facility] was hemodynamically and neurologically stable. CODE STATUS DURING THIS ADMISSION: Do not intubate/do not resuscitate. [facility] /[id number]
== END 2017-04-12 13:45 | DRG 684 ==
LOC: DL.MS 13:03 → UNDOADMIN 13:03 → DL.MS 14:31
PROVIDERS: ADMIT Internal Medicine; ATTEND Internal Medicine
DX: N17.9 Acute kidney failure, unspecified (principal); Z79.82 Long term (current) use of aspirin; I10 Essential (primary) hypertension; K21.9 Gastro-esophageal reflux disease without esophagitis; M19.90 Unspecified osteoarthritis, unspecified site; Z89.512 Acquired absence of left leg below knee; E86.0 Dehydration; R70.0 Elevated erythrocyte sedimentation rate; I25.10 Atherosclerotic heart disease of native coronary artery without angina pectoris; N40.1 Benign prostatic hyperplasia with lower urinary tract symptoms; R33.8 Other retention of urine; Z66 Do not resuscitate; F32.9 Major depressive disorder, single episode, unspecified; R63.4 Abnormal weight loss; Z68.29 Body mass index [BMI] 29.0-29.9, adult; R11.0 Nausea; E11.9 Type 2 diabetes mellitus without complications; Z79.84 Long term (current) use of oral hypoglycemic drugs
CPT/HCPCS: 36415; 51702; 74176; 80048; 80076; 81001; 82140; 82962; 85025; 85610; 87040; 87086; 87088; 87186; A9270-GY; J1644; J1815-GY; J2405; J2765; J3480; J7050

== ENCOUNTER 2017-05-24 22:44 | Emergency (ER) | payer MEDICARE, BC ==
--- NOTE | 2017-05-24 22:54 | EDM.PDOC ---
ED HPI GENERAL MEDICAL PROBLEM - General Stated Complaint: FROM [facility] Time Seen by Provider: 05/24/17 22:52 Source of Information: Reports: [facility] Records History Limitations: Reports: No Limitations - History of Present Illness INITIAL COMMENTS - FREE TEXT/NARRATIVE: sent for problem with Pandey, unable to push forward foreskin. - Related Data Allergies Allergy/AdvReac Type Severity Reaction Status Date / Time amoxicillin Allergy Nausea and Verified 05/24/17 23:05 Vomiting cyclobenzaprine Allergy Cannot Verified 05/24/17 23:05 Remember Home Meds: Home Meds Acetaminophen [Tylenol] 2 tab PO Q4H PRN 05/24/17 [History] Finasteride [Proscar] 1 tab PO DAILY 05/24/17 [History] Insulin Aspart [NovoLOG] 1 unit SQ TID 05/24/17 [History] LORazepam 1 tab PO BID PRN 05/24/17 [History] Lactobacillus Acidophilus [Acidophilus Lactobacillus] 1 each PO DAILY 05/24/17 [ History] Methyl Salicylate/Menthol [Muscle Rub Cream] 1 applic TOP ASDIRECTED PRN [History] Metoprolol Tartrate 12.5 mg PO DAILY 05/24/17 [History] Mirtazapine [Remeron] 45 mg PO DAILY 05/24/17 [History] Ondansetron HCl [Zofran] 2.5 ml PO ASDIRECTED PRN 05/24/17 [History] Oxybutynin Chloride [Ditropan Xl] 1 tab PO DAILY 05/24/17 [History] Polyethylene Glycol 3350 [Miralax] 1 pkt PO ASDIRECTED PRN 05/24/17 [History] Potassium Chloride [Klor-Con M20] 1 tab PO DAILY 05/24/17 [History] Sertraline [Zoloft] 1 tab PO DAILY 05/24/17 [History] Tamsulosin HCl [Flomax] 0.4 mg PO DAILY 05/24/17 [History] oxyCODONE 1 tab PO Q6H PRN 05/24/17 [History] Past Medical History HEENT History: Reports: Impaired Vision, Other (See Below) Other HEENT History: wears glasses Cardiovascular History: Reports: Hypertension Respiratory History: Reports: None Gastrointestinal History: Reports: Cholelithiasis, GERD Genitourinary History: Reports: BPH Musculoskeletal History: Reports: Arthritis Neurological History: Reports: None Psychiatric History: Reports: None Endocrine/Metabolic History: Reports: Diabetes, Type II Hematologic History: Reports: None Immunologic History: Reports: None Oncologic (Cancer) History: Reports: None Dermatologic History: Reports: Psoriasis - Infectious Disease History Infectious Disease History: Reports: None - Past Surgical History HEENT Surgical History: Reports: None Cardiovascular Surgical History: Reports: None Respiratory Surgical History: Reports: None GI Surgical History: Reports: Cholecystectomy Endocrine Surgical History: Reports: None Neurological Surgical History: Reports: Spinal Fusion Musculoskeletal Surgical History: Reports: Hip Replacement, Knee Replacement Oncologic Surgical History: Reports: None Dermatological Surgical History: Reports: None Social & Family History - Family History Family Medical History: Noncontributory - Tobacco Use Smoking Status *Q: Never Smoker Second Hand Smoke Exposure: No - Caffeine Use Caffeine Use: Reports: Coffee, Soda - Recreational Drug Use Recreational Drug Use: No ED ROS GENERAL - Review of Systems Review Of Systems: ROS reveals no pertinent complaints other than HPI. ED EXAM, RENAL/ - Physical Exam Exam: See Below Exam Limited By: No Limitations General Appearance: Alert, WD/WN, No Apparent Distress Ears: Hearing Grossly Normal Throat/Mouth: Normal Voice, No Airway Compromise Head: Atraumatic Neck: Non-Tender, Full Range of Motion Respiratory/Chest: No Respiratory Distress Cardiovascular: Regular Rate, Rhythm GI/Abdominal: Soft, Non-Tender (Male) Exam: Other (foreskin able to move foreward, hypospadius.) Neurological: Alert, Normal Cognition Psychiatric: Normal Affect, Normal Mood Skin Exam: Warm, Dry, Normal Color Lymphatic: No Adenopathy Course - Vital Signs Last Recorded V/S: Last Vital Signs Temp 37.0 C 05/24/17 22:58 Pulse 86 05/24/17 22:58 Resp 16 05/24/17 22:58 BP 127/62 05/24/17 22:58 Pulse Ox 95 05/24/17 22:58 - Orders/Labs/Meds Orders: Active Orders 24 hr Category Date Time Status CULTURE URINE [RM] Stat Lab 05/24/17 23:28 Ordered Nitrofurantoin [place]/Macrocryst [Macrobid] Med 05/24/17 23:29 Once 100 mg PO ONETIME ONE Medication Orders Nitrofurantoin Macrocrystals (Macrobid) 100 mg PO ONETIME ONE Stop: 05/24/17 23:30 Labs: Laboratory Tests 05/24/17 Range/Units 23:08 Urine Color Yellow (YELLOW) Urine Appearance Turbid (CLEAR) Urine pH 8.0 (5.0-9.0) Ur Specific [place] 1.015 (1.005-1.030) Urine Protein 100 H (NEGATIVE) Urine Glucose (UA) Negative (NEGATIVE) Urine Ketones Negative (NEGATIVE) Urine Occult Blood Moderate H (NEGATIVE) Urine Nitrite Negative (NEGATIVE) Urine Bilirubin Negative (NEGATIVE) Urine Urobilinogen 0.2 (0.2-1.0) mg/dL Ur Leukocyte Esterase Large H (NEGATIVE) Urine RBC 10-20 H /HPF Urine WBC >100 H (0-5/HPF) /HPF Ur Epithelial Cells Not seen /HPF Urine Bacteria Many H (0-FEW/HPF) /HPF Meds: Medications Generic Name Dose Route Start Last Admin Trade Name Freq PRN Reason Stop Dose Admin Nitrofurantoin Macrocrystals 100 mg 05/24/17 23:29 Macrobid PO 05/24/17 23:30 ONETIME ONE Departure - Departure Time of Disposition: 23:30 Disposition: DC/Tfer to [facility] Condition: Good Clinical Impression: UTI, Urinary tract infectious disease - Discharge Information Instructions: Urinary Tract Infection, Adult, Evpo-qe-Fahs Forms: ED Department Discharge Additional Instructions: 1) continue pandey care 2) recheck as needed rx given; macrobid 100mg bid x 20 - My Orders Last 24 Hours: My Active Orders 05/24/17 23:28 CULTURE URINE [RM] Stat 05/24/17 23:29 Nitrofurantoin [place]/Macrocryst [Macrobid] 100 mg PO ONETIME ONE - Assessment/Plan Last 24 Hours: My Active Orders 05/24/17 23:28 CULTURE URINE [RM] Stat 05/24/17 23:29 Nitrofurantoin [place]/Macrocryst [Macrobid] 100 mg PO ONETIME ONE
[2017-05-24 22:59] VITALS: BP 127/62
[2017-05-24] MEDS ORDERED: Nitrofurantoin Monohydrate/Macrocrystalline 100 MG Cap PO ONE (23:29)
== END 2017-05-24 23:50 ==
LOC: DL.ED 22:44
DX: N39.0 Urinary tract infection, site not specified (principal); I10 Essential (primary) hypertension; K21.9 Gastro-esophageal reflux disease without esophagitis; E11.9 Type 2 diabetes mellitus without complications; Z88.1 Allergy status to other antibiotic agents; Z79.4 Long term (current) use of insulin; Z79.899 Other long term (current) drug therapy
CPT/HCPCS: 81001; 87086; 99283; A9270; 87088; 87186

== ENCOUNTER 2017-05-27 23:29 | Emergency (ER) | payer MEDICARE, BC ==
--- NOTE | 2017-05-27 23:47 | EDM.PDOC ---
ED HPI GENERAL MEDICAL PROBLEM - General Chief Complaint: Genitourinary Problem Stated Complaint: FROM [facility] Time Seen by Provider: 05/27/17 23:40 Source of Information: Reports: Other History Limitations: Reports: No Limitations - History of Present Illness INITIAL COMMENTS - FREE TEXT/NARRATIVE: ED [facility] via [facility]. Report from [facility] staff, that they are unable to retract foreskin over penis. Patient has indwelling pandey catheter and hypospadias. - Related Data Allergies Allergy/AdvReac Type Severity Reaction Status Date / Time amoxicillin Allergy Nausea and Verified 05/27/17 23:40 Vomiting cyclobenzaprine Allergy Cannot Verified 05/27/17 23:40 Remember Home Meds: Home Meds Acetaminophen [Tylenol] 2 tab PO Q4H PRN 05/24/17 [History] Finasteride [Proscar] 1 tab PO DAILY 05/24/17 [History] Insulin Aspart [NovoLOG] 1 unit SQ TID 05/24/17 [History] LORazepam 1 tab PO BID PRN 05/24/17 [History] Lactobacillus Acidophilus [Acidophilus Lactobacillus] 1 each PO DAILY 05/24/17 [ History] Methyl Salicylate/Menthol [Muscle Rub Cream] 1 applic TOP ASDIRECTED PRN [History] Metoprolol Tartrate 12.5 mg PO DAILY 05/24/17 [History] Mirtazapine [Remeron] 45 mg PO DAILY 05/24/17 [History] Ondansetron HCl [Zofran] 2.5 ml PO ASDIRECTED PRN 05/24/17 [History] Oxybutynin Chloride [Ditropan Xl] 1 tab PO DAILY 05/24/17 [History] Polyethylene Glycol 3350 [Miralax] 1 pkt PO ASDIRECTED PRN 05/24/17 [History] Potassium Chloride [Klor-Con M20] 1 tab PO DAILY 05/24/17 [History] Sertraline [Zoloft] 1 tab PO DAILY 05/24/17 [History] Tamsulosin HCl [Flomax] 0.4 mg PO DAILY 05/24/17 [History] oxyCODONE 1 tab PO Q6H PRN 05/24/17 [History] Past Medical History HEENT History: Reports: Impaired Vision, Other (See Below) Other HEENT History: wears glasses Cardiovascular History: Reports: Hypertension Respiratory History: Reports: None Gastrointestinal History: Reports: Cholelithiasis, GERD Genitourinary History: Reports: BPH Musculoskeletal History: Reports: Arthritis Neurological History: Reports: None Psychiatric History: Reports: None Endocrine/Metabolic History: Reports: Diabetes, Type II Hematologic History: Reports: None Immunologic History: Reports: None Oncologic (Cancer) History: Reports: None Dermatologic History: Reports: Psoriasis - Infectious Disease History Infectious Disease History: Reports: None - Past Surgical History HEENT Surgical History: Reports: None Cardiovascular Surgical History: Reports: None Respiratory Surgical History: Reports: None GI Surgical History: Reports: Cholecystectomy Endocrine Surgical History: Reports: None Neurological Surgical History: Reports: Spinal Fusion Musculoskeletal Surgical History: Reports: Hip Replacement, Knee Replacement Oncologic Surgical History: Reports: None Dermatological Surgical History: Reports: None Social & Family History - Family History Family Medical History: Noncontributory - Tobacco Use Smoking Status *Q: Never Smoker Second Hand Smoke Exposure: No - Caffeine Use Caffeine Use: Reports: Coffee, Soda - Recreational Drug Use Recreational Drug Use: No ED ROS GENERAL - Review of Systems Review Of Systems: ROS reveals no pertinent complaints other than HPI. ED EXAM, RENAL/ - Physical Exam Exam: See Below Exam Limited By: No Limitations General Appearance: Alert, No Apparent Distress Ears: Normal External Exam Nose: Normal Inspection Throat/Mouth: Normal Inspection Head: Atraumatic, Normocephalic Neck: Normal Inspection Respiratory/Chest: No Respiratory Distress Cardiovascular: Regular Rate, Rhythm, No Edema (Male) Exam: Other (No swelling of penile shaft. posterior hypospadius. [employer] able to easily retract foreskin over penis. ). No: Penile Lesions, Urethral Discharge Course - Vital Signs Last Recorded V/S: Last Vital Signs Temp 98.2 F 05/27/17 23:34 Pulse 93 05/27/17 23:34 Resp 16 05/27/17 23:34 BP 129/62 05/27/17 23:50 Pulse Ox 96 05/27/17 23:34 Departure - Departure Time of Disposition: 23:45 Disposition: Home, Self-Care 01 Condition: Good Clinical Impression: Hypospadias, penile - Discharge Information Instructions: Pandey Catheter Care, Adult Forms: ED Department Discharge Additional Instructions: follow up as needed continue usual [facility] medications
[2017-05-27 23:51] VITALS: BP 129/62
== END 2017-05-27 23:56 | disposition home or self-care (01) ==
LOC: DL.ED 23:29
DX: Q54.1 Hypospadias, penile (principal); I10 Essential (primary) hypertension; K21.9 Gastro-esophageal reflux disease without esophagitis; E11.9 Type 2 diabetes mellitus without complications; L40.9 Psoriasis, unspecified; Z88.1 Allergy status to other antibiotic agents; Z88.8 Allergy status to other drugs, medicaments and biological substances; Z79.4 Long term (current) use of insulin; Z79.899 Other long term (current) drug therapy
CPT/HCPCS: 99282; 99283